=== PATIENT | male | born 1965 | race Caucasian/White ===

== ENCOUNTER 2017-01-30 00:20 | Inpatient (IN) | payer OTHER ==
[~2017-01-30] VITALS: Ht 185.4 cm; Wt 122.9 kg
[2017-01-30] VITALS (24 sets, daily range): BP systolic 74–173; BP diastolic 41–98
[2017-01-30] MEDS ORDERED: AMIODARONE 150 MG in IV DEXTROSE 5% 100 ML IV ONE (00:30)
[2017-01-30 00:39] LABS: BASO # 0.2 x10^3/uL (0.0-0.2); BASO % 1 % (0-3); EOS % 0 % (0-3); HEMATOCRIT 52.2 % (39.0-53.0); HEMOGLOBIN 16.3 g/dL (13.0-17.5); LYMPH # 3.9 x10^3/uL (1.0-4.8); LYMPH % 18 % (24-48); MEAN CORPUSCULAR HEMOGLOBIN 28 pg (25-35); MEAN CORPUSCULAR HGB CONC 31 g/dL (31-37); MEAN CORPUSCULAR VOLUME 91 fL (79-100); MONO % 8 % (0-9); NEUT % 72 % (31-73); PLATELET COUNT 243 x10^3/uL (140-400); RED BLOOD COUNT 5.75 x10^6/uL (4.30-5.70); WHITE BLOOD COUNT 21.2 x10^3/uL (4.0-11.0)
[2017-01-30 00:48] LABS: INR 1.1 (0.8-1.1); PROTHROMBIN TIME PATIENT 13.6 SEC (11.7-14.0)
--- NOTE | 2017-01-30 00:49 | PHYS DOC ---
Adult General Chief Complaint Chief Complaint: CHEST PAIN HPI HPI Patient is a 51 year old male who presents with complaining of his ICD firing. He states he is feeling shocks from his ICD firing every 5 minutes the last 2 hours. He states he's been noncompliant with all his medications. He does not remember what medications he takes. He is unsure when he had his ICD placed but states he is seen in [facility]. According to the [facility] he has a history of coronary disease he's had a PCI in 2016 he's on Berlinta and aspirin and has an EF of 20% with global hypokinesis. He also has past medical history of type 2 diabetes, peripheral artery disease, congestive heart failure. He states his been out of his meds for at least a week. He denies fevers chills, he does complain of some nausea but no vomiting. He denies a cough. Review of Systems Review of Systems Constitutional: Denies fever or chills [] Eyes: Denies change in visual acuity, redness, or eye pain [] HENT: Denies nasal congestion or sore throat [] Respiratory: Denies cough or shortness of breath [] Cardiovascular: No additional information not addressed in HPI [] GI: Denies abdominal pain, nausea, vomiting, bloody stools or diarrhea [] : Denies dysuria or hematuria [] Musculoskeletal: Denies back pain or joint pain [] Integument: Denies rash or skin lesions [] Neurologic: Denies headache, focal weakness or sensory changes [] Endocrine: Denies polyuria or polydipsia [] Current Medications Current Medications Current Medications Medications (Trade) Dose Ordered Sig/Landen Start Time Stop Time Status Last Admin Dose Admin Amiodarone HCl 150 mg/Dextrose 103 ml @ 400 mls/hr 1X ONCE 01/30/17 00:30 01/30/17 00:50 DC 01/30/17 00:27 400 MLS/HR Amiodarone HCl 900 mg/Dextrose 518 ml @ 0 mls/hr CONT PRN 01/30/17 02:30 01/30/17 02:30 DC 01/30/17 02:24 33.3 MLS/HR Dextrose/Sodium Chloride 1,000 ml @ 250 mls/hr Q4H 01/30/17 01:41 Insulin Human Regular 150 ml @ As Directed STK-MED ONCE 01/30/17 02:00 01/30/17 02:01 DC Insulin Human Regular 150 unit/ Sodium Chloride 151.5 ml @ 0 mls/hr CONT PRN PRN 01/30/17 01:45 01/30/17 02:08 14.5 MLS/HR Ondansetron HCl (Zofran) 4 mg PRN Q8HRS PRN 01/30/17 02:30 01/31/17 02:29 Potassium Chloride 100 ml @ 100 mls/hr PRN Q1HR PRN 01/30/17 01:45 Sodium Chloride 1,000 ml @ 250 mls/hr Q4H 01/30/17 01:41 Allergies Allergies Allergies Coded Allergies Type Severity Reaction Last Updated Verified No Known Drug Allergies 01/30/17 No Physical Exam Physical Exam Constitutional: Well developed, well nourished, no acute distress, non-toxic appearance. [] HENT: Normocephalic, atraumatic, bilateral external ears normal, oropharynx moist, no oral exudates, nose normal. [] Eyes: PERRLA, EOMI, conjunctiva normal, no discharge. [] Neck: Normal range of motion, no tenderness, supple, no stridor. [] Cardiovascular:Heart rate regular rhythm, no murmur [] Lungs & Thorax: Bilateral breath sounds clear to auscultation [] Abdomen: Bowel sounds normal, soft, no tenderness, no masses, no pulsatile masses. [] Skin: Warm, dry, no erythema, no rash. [] Back: No tenderness, no CVA tenderness. [] Extremities: No tenderness, no cyanosis, no clubbing, ROM intact, no edema. [] Neurologic: Alert and oriented X 3, normal motor function, normal sensory function, no focal deficits noted. [] Psychologic: Affect normal, judgement normal, mood normal. [] Current Patient Data Vital Signs Vital Signs Date Time Temp Pulse Resp B/P (MAP) Pulse Ox O2 Delivery O2 Flow Rate FiO2 01/30/17 00:27 133 159/81 01/30/17 00:20 96.8 22 93 Room Air 96.8 Lab Values Laboratory Tests Test 01/30/17 00:25 01/30/17 00:28 01/30/17 01:20 01/30/17 01:41 White Blood Count 21.2 x10^3/uL (4.0-11.0) H Red Blood Count 5.75 x10^6/uL (4.30-5.70) H Hemoglobin 16.3 g/dL (13.0-17.5) Hematocrit 52.2 % (39.0-53.0) Mean Corpuscular Volume 91 fL (79-100) Mean Corpuscular Hemoglobin 28 pg (25-35) Mean Corpuscular Hemoglobin Concent 31 g/dL (31-37) Red Cell Distribution Width 15.0 % (11.5-14.5) H Platelet Count 243 x10^3/uL (140-400) Neutrophils (%) (Auto) 72 % (31-73) Lymphocytes (%) (Auto) 18 % (24-48) L Monocytes (%) (Auto) 8 % (0-9) Eosinophils (%) (Auto) 0 % (0-3) Basophils (%) (Auto) 1 % (0-3) Neutrophils # (Auto) 15.3 x10^3uL (1.8-7.7) H Lymphocytes # (Auto) 3.9 x10^3/uL (1.0-4.8) Monocytes # (Auto) 1.7 x10^3/uL (0.0-1.1) H Eosinophils # (Auto) 0.1 x10^3/uL (0.0-0.7) Basophils # (Auto) 0.2 x10^3/uL (0.0-0.2) Segmented Neutrophils % 78 % (35-66) H Band Neutrophils % 2 % (0-9) Lymphocytes % 14 % (24-48) L Monocytes % 6 % (0-10) Platelet Estimate Adequate (ADEQUATE) Prothrombin Time 13.6 SEC (11.7-14.0) Prothrombin Time INR 1.1 (0.8-1.1) Sodium Level 126 mmol/L (136-145) L Potassium Level 4.0 mmol/L (3.5-5.1) Chloride Level 83 mmol/L (98-107) L Carbon Dioxide Level 12 mmol/L (21-32) L Anion Gap 31 (6-14) H Blood Urea Nitrogen 47 mg/dL (8-26) H Creatinine 2.6 mg/dL (0.7-1.3) H Estimated GFR (Cockcroft-Gault) 26.2 Glucose Level 781 mg/dL (70-99) *H Calcium Level 9.1 mg/dL (8.5-10.1) Magnesium Level 2.9 mg/dL (1.8-2.4) H Total Bilirubin 1.2 mg/dL (0.2-1.0) H Direct Bilirubin 0.3 mg/dL (0.0-0.2) H Aspartate Amino Transferase (AST) 21 U/L (15-37) Alanine Aminotransferase (ALT) 23 U/L (16-63) Alkaline Phosphatase 122 U/L (46-116) H Creatine Kinase 204 U/L (39-308) Creatine Kinase MB (Mass) 3.5 ng/mL (0.0-3.6) Creatine Kinase MB Relative Index 1.7 % (0-4) Troponin I Quantitative 1.097 ng/mL (0.000-0.055) VS-Ydl-J-Type Natriuretic Peptide 2863 pg/mL (0-124) H Total Protein 8.2 g/dL (6.4-8.2) Albumin 3.7 g/dL (3.4-5.0) Lipase 209 U/L (73-393) Thyroid Stimulating Hormone (TSH) 0.634 uIU/mL (0.358-3.74) Ethyl Alcohol Level < 10 mg/dL (0-10) Lactic Acid Level 7.3 mmol/L (0.4-2.0) *H Phosphorus Level 9.9 mg/dL (2.6-4.7) H Urine Collection Type Unknown Urine Color Yellow Urine Clarity Clear Urine pH 5.0 Urine Specific [place] >=1.030 Urine Protein Negative mg/dL (NEG-TRACE) Urine Glucose (UA) >=1000 mg/dL (NEG) Urine Ketones (Stick) 40 mg/dL (NEG) Urine Blood Trace (NEG) Urine Nitrite Negative (NEG) Urine Bilirubin Small (NEG) Urine Urobilinogen Dipstick 0.2 mg/dL (0.2 mg/dL) Urine Leukocyte Esterase Negative (NEG) Urine RBC Occ /HPF (0-2) Urine WBC Occ /HPF (0-4) Urine Squamous Epithelial Cells Few /LPF Urine Amorphous Sediment Present /HPF Urine Bacteria 0 /HPF (0-FEW) Urine Mucus Slight /LPF Urine Opiates Screen Pos (NEG) Urine Methadone Screen Neg (NEG) Urine Barbiturates Neg (NEG) Urine Phencyclidine Screen Neg (NEG) Urine Amphetamine/Methamphetamine Neg (NEG) Urine Benzodiazepines Screen Neg (NEG) Urine Cocaine Screen Neg (NEG) Urine Cannabinoids Screen Neg (NEG) Urine Ethyl Alcohol Neg (NEG) O2 Saturation 95 % (92-99) Arterial Blood pH 7.25 (7.35-7.45) L Arterial Blood pCO2 at Patient Temp 22 mmHg (35-46) L Arterial Blood pO2 at Patient Temp 87 mmHg (75-108) Arterial Blood HCO3 9 mmol/L (21-28) L Arterial Blood Base Excess -16 mmol/L (-3-3) L Oxyhemoglobin 93.7 % Methemoglobin 0.6 % (0.0-1.9) Carbon Monoxide, Quantitative 0.7 % (0.0-1.9) FiO2 28.0 Laboratory Tests 01/30/17 00:25 Laboratory Tests 01/30/17 00:25 EKG EKG EKG at 0023 shows wide complex tachycardia, and V6 shows a narrow complex, QTC 530 ms, as interpreted by me. Repeat EKG at 152 shows wide complex tachycardia at a rate of 124 bpm, QRS 190 ms, QTc 513 ms, as interpreted by me. Radiology/Procedures Radiology/Procedures One view chest x-ray did not show any focal salt elevations, bony abnormalities , or pneumothorax, ICD noted, as interpreted by me. Impressions: DKA Wide-complex tachycardia Congestive heart failure Elevated troponin Course & Med Decision Making Course & Med Decision Making Pertinent Labs and Imaging studies reviewed. (See chart for details) Patient arrived and had a hard time telling us his past medical history, surgical history and medication list. Rhythm on the monitor showed a wide complex tachycardia in the 150s. He was given 150 of amiodarone and his rate slowed down in the 120s. A liter fluid was also given. Labs showed DKA with an ABG showing pH is 7.2 PCO2 of 22 PO2 of 80 bicarbonate of 9. Insulin protocol has been implemented. I believe the patient is in DKA secondary to noncompliance with medication since he's been off his meds for according to patient about a week. Critical care time 75 minutes of critical care time was used on this patient excluding procedures. Dragon Disclaimer Dragon Disclaimer This electronic medical record was generated, in whole or in part, using a voice recognition dictation system. Departure Departure Disposition: ADMITTED INPATIENT Admitting Physician: Other Condition: CRITICAL Referrals: NO PCP (PCP) RACHEL SWANN MD Jan 30, 2017 00:49
[2017-01-30 00:57] LABS: ALBUMIN 3.7 g/dL (3.4-5.0); CALCIUM 9.1 mg/dL (8.5-10.1); CREATININE 2.6 mg/dL (0.7-1.3); DIRECT BILIRUBIN 0.3 mg/dL (0.0-0.2); GFR 26.2; MAGNESIUM 2.9 mg/dL (1.8-2.4); TOTAL BILIRUBIN 1.2 mg/dL (0.2-1.0); TOTAL PROTEIN 8.2 g/dL (6.4-8.2)
[2017-01-30 01:06] LABS: CKMB MASS 3.5 ng/mL (0.0-3.6)
[2017-01-30 01:29] LABS: BILIRUBIN,URINE SMALL (NEG); GLUCOSE,URINE >=1000 mg/dL (NEG); NITRITE,URINE NEGATIVE (NEG); PROTEIN,URINE NEGATIVE (NEG-TRACE); UROBILINOGEN,URINE 0.2 mg/dL (0.2 mg/dL)
[2017-01-30] MEDS ORDERED: IV NORMAL SALINE 1000ML BAG 1,000 ML IV ONE ×3 (01:30→04:30)
[2017-01-30 01:35] LABS: BARBITURATES NEG (NEG); BENZODIAZEPINES NEG (NEG); CANNABINOIDS NEG (NEG); COCAINE NEG (NEG); METHADONE NEG (NEG); OPIATES POS (NEG); PHENCYCLIDINE NEG (NEG)
[2017-01-30 01:38] LABS: BACTERIA,URINE 0 /HPF (0-FEW); RBC,URINE OCC /HPF (0-2); SQUAMOUS EPITHELIAL CELL,UR FEW /LPF; WBC,URINE OCC /HPF (0-4)
[2017-01-30] MEDS: IV NORMAL SALINE 1000ML BAG 1,000 ML IV SCH ×6 (01:38→13:41)
[2017-01-30] MEDS ORDERED: IV 1/2 NORMAL SALINE 1,000 ML IV SCH (01:39)
[2017-01-30] MEDS: IV 1/2 NORMAL SALINE 1,000 ML IV SCH ×4 (01:41→13:41)
[2017-01-30] MEDS: IV DEXTROSE 5 %-0.45 % NACL 1,000 ML IV SCH ×4 (01:41→13:41)
[2017-01-30] MEDS ORDERED: POTASSIUM CHLORIDE 10MEQ 100 ML IV PRN ×2 (01:45)
[2017-01-30] MEDS ORDERED: INSULIN REGULAR VIAL 150 UNIT in 0.9 % SODIUM CHLORIDE 150ML 150 ML IV PRN (01:45)
[2017-01-30 01:50] LABS: PLT ESTIMATE ADEQUATE (ADEQUATE)
[2017-01-30 01:58] LABS: BASE EXCESS COOX -16 mmol/L (-3-3); CARBON MONOXIDE 0.7 % (0.0-1.9); HCO3 COOX 9 mmol/L (21-28); METHEMOGLOBIN 0.6 % (0.0-1.9); OXYHEMOGLOBIN 93.7 %; PCO2 COOX 22 mmHg (35-46); PH COOX 7.25 (7.35-7.45); PO2 COOX 87 mmHg (75-108); SAT O2 COOX 95 % (92-99)
[2017-01-30] MEDS ORDERED: INSULIN,REGULAR 150 UNIT DRIP 150 ML IV ONE (02:00)
[2017-01-30] MEDS ORDERED: AMIODARONE 900 MG in IV DEXTROSE 5% 500 ML IV PRN (02:30)
[2017-01-30] MEDS ORDERED: ONDANSETRON PF 4 MG/2 ML VIAL. IV PRN (02:30)
[2017-01-30] MEDS ORDERED: METOPROLOL TARTRATE 5 MG/5 ML VIAL. ONE (03:23)
[2017-01-30 03:53] LABS: CKMB MASS 4.5 ng/mL (0.0-3.6)
[2017-01-30] MEDS ORDERED: METOPROLOL TARTRATE 5 MG/5 ML VIAL. IVP ONE ×2 (04:00→17:45)
--- NOTE | 2017-01-30 04:14 | RAD ---
PQRS Compliance Statement: One or more of the following individualized dose reduction techniques were utilized for this examination: 1. Automated exposure control 2. Adjustment of the mA and/or kV according to patient size 3. Use of iterative reconstruction technique CT HEAD WITHOUT CONTRAST History: ams Comparison: None. Procedure: Axial images are obtained of the head from the skull base through the vertex without IV contrast. Findings: The ventricles and sulci are normal for the patient's age. There is bilateral frontal lobe encephalomalacia. No mass-effect, midline shift, hemorrhage, extra-axial fluid collection, or obvious acute infarction is identified. Basilar cisterns are patent. Bone windows demonstrate no acute calvarial abnormality. The visualized paranasal sinuses are clear. Mastoid air cells are well aerated. IMPRESSION: 1. No acute intracranial abnormality. 2. Bilateral frontal lobe encephalomalacia. Electronically signed by: Tino Astudillo MD (01/30/2017 4:10 AM) [facility]
[2017-01-30] MEDS ORDERED: IV NORMAL SALINE 500ML BAG 400 ML IV ONE (05:30)
--- NOTE | 2017-01-30 06:43 | EKG ---
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
--- NOTE | 2017-01-30 06:43 | EKG ---
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
[2017-01-30 06:52] LABS: CALCIUM 8.8 mg/dL (8.5-10.1); CREATININE 1.9 mg/dL (0.7-1.3); GFR 37.6; POTASSIUM 4.1 mmol/L (3.5-5.1)
--- NOTE | 2017-01-30 06:54 | EKG ---
[facility] [address] [place] [address] Test Date: 2017-01-30 Test Time: 03:22:25 Pat Name: GEETA ANGLIN Department: Room: 110 1 Gender: M Circus Agent: : 1965 Requested By: RACHEL SWANN Order Number: [id number] Reading MD: Elvin Baez Measurements Intervals [place] Rate: 176 P: [place]: QRS: 54 QRSD: 318 T: 64 QT: 376 QTc: 648 Interpretive Statements ATRIAL FIBRILLATION WITH ABERRANCY CANNOT RULE OUT VT Electronically Signed On 02-03-2017 9:46:40 CDT by Elvin Baez
[2017-01-30 06:55] LABS: HEMATOCRIT 51.6 % (39.0-53.0); HEMOGLOBIN 16.4 g/dL (13.0-17.5); RED BLOOD COUNT 5.91 x10^6/uL (4.30-5.70); RED CELL DISTRIBUTION WIDTH 14.4 % (11.5-14.5); WHITE BLOOD COUNT 16.6 x10^3/uL (4.0-11.0)
[2017-01-30 07:19] LABS: MAGNESIUM 2.7 mg/dL (1.8-2.4); PHOSPHORUS 3.7 mg/dL (2.6-4.7)
--- NOTE | 2017-01-30 07:35 | RAD ---
Exam performed: One view chest. Indication: chest pain Date of Service: 01/30/2017 2:27 AM Comparison: None available. Single AP upright portable view chest findings: Cardiomediastinal silhouette is within limits of normal. Bipolar pacemaker. No acute infiltrates, effusion or pneumothorax is detected. The bony structures are normal. Impression: No acute cardiopulmonary process is detected.
[2017-01-30] MEDS: POTASSIUM CHLORIDE 10MEQ 100 ML IV PRN ×2 (09:39→10:48)
--- NOTE | 2017-01-30 09:54 | PDOC2 ---
MAXIME PHILLIPS SHINGLE GRADER 01/30/17 0954: CARDIAC CONSULT DATE OF CONSULT Date of Consult DATE: 01/30/17 TIME: 09:46 REASON FOR CONSULT Reason for Consult: Elevated troponin REFERRING PHYSICIAN Referring Physician: Dr. Gomez SOURCE Source: Chart review, Patient HISTORY OF PRESENT ILLNESS HISTORY OF PRESENT ILLNESS This is a 51 yo male with a h/o ICM s/p AICD placement, who presented secondary to defibrillator discharging. Is a poor historian. Reports getting shocked a dozen times in the last couple of day along with getting shock in the middle of the night on the unit. Per chart review, patient reports ICD firing every 5 mins for the last couple of hours. Amiodarone therapy initiated in ED. Has apparently been noncompliant with his medications. On insulin at home. BS >700 upon admission. Reports his glucometer has not been working properly. Denies any chest pain, palpitations, dizziness, diaphoresis, or nausea/vomiting. Does have a history CAD s/p PCI/stent placement at [facility] (patient reporting a year ago). Reports compliance of at least 3 months of DAPT with ASA and Brilinta. AICD placed recently. LVEF reportedly 20%. PAST MEDICAL HISTORY Cardiovascular: CAD, CHF (with ICM), HTN, Other (PAD s/p bilateral fem pop) Pulmonary: No pertinent hx Heme/Onc: No pertinent hx Hepatobiliary: No pertinent hx Psych: Anxiety, Depression Rheumatologic: No pertinent hx Infectious disease: No pertinent hx ENT: No pertinent hx Renal/: No pertinent hx Endocrine: Diabetes Dermatology: No pertinent hx PAST SURGICAL HISTORY Past Surgical History: Pacemaker (AICD) FAMILY HISTORY Family History: Diabetes SOCIAL HISTORY Smoke: No ALCOHOL: none Drugs: None Lives: Alone CURRENT MEDICATIONS CURRENT MEDICATIONS Current Medications Medications (Trade) Dose Ordered Sig/Landen Route PRN Reason Start Time Stop Time Status Last Admin Dose Admin Amiodarone HCl 150 mg/Dextrose 103 ml @ 400 mls/hr 1X ONCE IV 01/30/17 00:30 01/30/17 00:50 DC 01/30/17 00:27 Sodium Chloride 1,000 ml @ 1,000 mls/hr 1X ONCE IV 01/30/17 01:30 01/30/17 02:29 DC 01/30/17 01:24 Sodium Chloride 1,000 ml @ 250 mls/hr Q4H IV 01/30/17 01:41 01/30/17 06:25 Insulin Human Regular 150 unit/ Sodium Chloride 151.5 ml @ 0 mls/hr CONT PRN PRN IV PER PROTOCOL 01/30/17 01:45 01/30/17 02:08 Potassium Chloride 100 ml @ 100 mls/hr PRN Q1HR PRN IV SEE COMMENTS 01/30/17 01:45 01/30/17 09:39 Amiodarone HCl 900 mg/Dextrose 518 ml @ 0 mls/hr CONT PRN IV SEE I/O RECORD 01/30/17 02:30 01/30/17 02:30 DC 01/30/17 02:24 Metoprolol Tartrate (Lopressor) 5 mg 1X ONCE IVP 01/30/17 04:00 01/30/17 04:01 DC 01/30/17 03:25 Sodium Chloride 1,000 ml @ 1,000 mls/hr 1X ONCE IV 01/30/17 04:30 01/30/17 05:29 DC 01/30/17 03:35 Sodium Chloride 1,000 ml @ 1,000 mls/hr 1X ONCE IV 01/30/17 04:30 01/30/17 05:29 DC 01/30/17 03:40 Sodium Chloride 400 ml @ 400 mls/hr 1X ONCE IV 01/30/17 05:30 01/30/17 06:29 DC 01/30/17 05:45 ALLERGIES ALLERGIES: Coded Allergies: No Known Drug Allergies (Unverified , 01/30/17) ROS Review of System 14 point ROS conducted with pertinent positives noted above in HPI although limited as patient is a poor historian. PHYSICAL EXAM General: Alert, Cooperative, No acute distress, Other (drowsy, oriented to person and place) HEENT: Atraumatic, Mucous membr. moist/pink Lungs: Clear to auscultation, Normal air movement, Other (left pectoral PPM incision well healed) Heart: Regular rate, Normal S1, Normal S2 Abdomen: Soft, No tenderness Extremities: Other (diminished pedal pulses ) Skin: No breakdown, No significant lesion Neuro: Sensation intact MUSCULOSKELETAL: Osteoarthritic changes both hands VITALS VITALS Vital Signs Date Time Temp Pulse Resp B/P (MAP) Pulse Ox O2 Delivery O2 Flow Rate FiO2 01/30/17 06:00 104 18 138/87 (104) 100 Nasal Cannula 2.0 01/30/17 04:15 98.3 98.3 LABS Lab: Laboratory Tests Test 01/30/17 00:25 01/30/17 00:28 01/30/17 01:20 01/30/17 01:41 White Blood Count 21.2 x10^3/uL (4.0-11.0) Red Blood Count 5.75 x10^6/uL (4.30-5.70) Hemoglobin 16.3 g/dL (13.0-17.5) Hematocrit 52.2 % (39.0-53.0) Mean Corpuscular Volume 91 fL (79-100) Mean Corpuscular Hemoglobin 28 pg (25-35) Mean Corpuscular Hemoglobin Concent 31 g/dL (31-37) Red Cell Distribution Width 15.0 % (11.5-14.5) Platelet Count 243 x10^3/uL (140-400) Neutrophils (%) (Auto) 72 % (31-73) Lymphocytes (%) (Auto) 18 % (24-48) Monocytes (%) (Auto) 8 % (0-9) Eosinophils (%) (Auto) 0 % (0-3) Basophils (%) (Auto) 1 % (0-3) Neutrophils # (Auto) 15.3 x10^3uL (1.8-7.7) Lymphocytes # (Auto) 3.9 x10^3/uL (1.0-4.8) Monocytes # (Auto) 1.7 x10^3/uL (0.0-1.1) Eosinophils # (Auto) 0.1 x10^3/uL (0.0-0.7) Basophils # (Auto) 0.2 x10^3/uL (0.0-0.2) Segmented Neutrophils % 78 % (35-66) Band Neutrophils % 2 % (0-9) Lymphocytes % 14 % (24-48) Monocytes % 6 % (0-10) Platelet Estimate Adequate (ADEQUATE) Prothrombin Time 13.6 SEC (11.7-14.0) Prothromb Time International Ratio 1.1 (0.8-1.1) Sodium Level 126 mmol/L (136-145) Potassium Level 4.0 mmol/L (3.5-5.1) Chloride Level 83 mmol/L (98-107) Carbon Dioxide Level 12 mmol/L (21-32) Anion Gap 31 (6-14) Blood Urea Nitrogen 47 mg/dL (8-26) Creatinine 2.6 mg/dL (0.7-1.3) Estimated GFR (Cockcroft-Gault) 26.2 Glucose Level 781 mg/dL (70-99) Calcium Level 9.1 mg/dL (8.5-10.1) Magnesium Level 2.9 mg/dL (1.8-2.4) Total Bilirubin 1.2 mg/dL (0.2-1.0) Direct Bilirubin 0.3 mg/dL (0.0-0.2) Aspartate Amino Transf (AST/SGOT) 21 U/L (15-37) Alanine Aminotransferase (ALT/SGPT) 23 U/L (16-63) Alkaline Phosphatase 122 U/L (46-116) Creatine Kinase 204 U/L (39-308) Creatine Kinase MB (Mass) 3.5 ng/mL (0.0-3.6) Creatine Kinase MB Relative Index 1.7 % (0-4) Troponin I Quantitative 1.097 ng/mL (0.000-0.055) CJ-Vtn-K-Type Natriuretic Peptide 2863 pg/mL (0-124) Total Protein 8.2 g/dL (6.4-8.2) Albumin 3.7 g/dL (3.4-5.0) Lipase 209 U/L (73-393) Thyroid Stimulating Hormone (TSH) 0.634 uIU/mL (0.358-3.74) Ethyl Alcohol Level < 10 mg/dL (0-10) Lactic Acid Level 7.3 mmol/L (0.4-2.0) Phosphorus Level 9.9 mg/dL (2.6-4.7) Urine Collection Type Unknown Urine Color Yellow Urine Clarity Clear Urine pH 5.0 Urine Specific [place] >=1.030 Urine Protein Negative mg/dL (NEG-TRACE) Urine Glucose (UA) >=1000 mg/dL (NEG) Urine Ketones (Stick) 40 mg/dL (NEG) Urine Blood Trace (NEG) Urine Nitrite Negative (NEG) Urine Bilirubin Small (NEG) Urine Urobilinogen Dipstick 0.2 mg/dL (0.2 mg/dL) Urine Leukocyte Esterase Negative (NEG) Urine RBC Occ /HPF (0-2) Urine WBC Occ /HPF (0-4) Urine Squamous Epithelial Cells Few /LPF Urine Amorphous Sediment Present /HPF Urine Bacteria 0 /HPF (0-FEW) Urine Mucus Slight /LPF Urine Opiates Screen Pos (NEG) Urine Methadone Screen Neg (NEG) Urine Barbiturates Neg (NEG) Urine Phencyclidine Screen Neg (NEG) Urine Amphetamine/Methamphetamine Neg (NEG) Urine Benzodiazepines Screen Neg (NEG) Urine Cocaine Screen Neg (NEG) Urine Cannabinoids Screen Neg (NEG) Urine Ethyl Alcohol Neg (NEG) O2 Saturation 95 % (92-99) Arterial Blood pH 7.25 (7.35-7.45) Arterial Blood pCO2 at Patient Temp 22 mmHg (35-46) Arterial Blood pO2 at Patient Temp 87 mmHg (75-108) Arterial Blood HCO3 9 mmol/L (21-28) Arterial Blood Base Excess -16 mmol/L (-3-3) Oxyhemoglobin 93.7 % Methemoglobin 0.6 % (0.0-1.9) Carbon Monoxide, Quantitative 0.7 % (0.0-1.9) FiO2 28.0 Test 01/30/17 03:10 01/30/17 05:00 01/30/17 05:23 01/30/17 06:23 Glucose Level 547 mg/dL (70-99) Lactic Acid Level 2.5 mmol/L (0.4-2.0) 2.9 mmol/L (0.4-2.0) Creatine Kinase 275 U/L (39-308) Creatine Kinase MB (Mass) 4.5 ng/mL (0.0-3.6) Creatine Kinase MB Relative Index 1.6 % (0-4) Troponin I Quantitative 0.896 ng/mL (0.000-0.055) Glucose (Fingerstick) 351 mg/dL (70-99) 313 mg/dL (70-99) Test 01/30/17 06:30 White Blood Count 16.6 x10^3/uL (4.0-11.0) Red Blood Count 5.91 x10^6/uL (4.30-5.70) Hemoglobin 16.4 g/dL (13.0-17.5) Hematocrit 51.6 % (39.0-53.0) Mean Corpuscular Volume 87 fL (79-100) Mean Corpuscular Hemoglobin 28 pg (25-35) Mean Corpuscular Hemoglobin Concent 32 g/dL (31-37) Red Cell Distribution Width 14.4 % (11.5-14.5) Platelet Count 188 x10^3/uL (140-400) Sodium Level 133 mmol/L (136-145) Potassium Level 4.1 mmol/L (3.5-5.1) Chloride Level 96 mmol/L (98-107) Carbon Dioxide Level 15 mmol/L (21-32) Anion Gap 22 (6-14) Blood Urea Nitrogen 44 mg/dL (8-26) Creatinine 1.9 mg/dL (0.7-1.3) Estimated GFR (Cockcroft-Gault) 37.6 Glucose Level 285 mg/dL (70-99) Calcium Level 8.8 mg/dL (8.5-10.1) Phosphorus Level 3.7 mg/dL (2.6-4.7) Magnesium Level 2.7 mg/dL (1.8-2.4) Troponin I Quantitative 0.919 ng/mL (0.000-0.055) ASSESSMENT/PLAN ASSESSMENT/PLAN 1. NSTEMI; peak 1.097 in the setting of ARF, DKA, and VT/multiple defibrillations 2. Ventricular tachycardia; with numerous AICD discharges; Amiodarone gtt initiated; maintaining SR/ST 3. Chronic systolic heart failure with ICM s/p ICD; LVEF reportedly 20%. Compensated. 4. CAD s/p PCI/stents. Resume secondary prevention measures including DAPT. 5. Hypertension; controlled. Will need to obtain home med list 6. Diabetes with DKA, POA. BS controlled with insulin gtt. 7. ARF; Cr trending downward. 8. Leukocytosis/ lactic acidosis/ afebrile; empiric antibiotic therapy initiated. ID consulted. 9. Metabolic encephalopathy 10. Noncompliance Recommendations Continue Amiodarone gtt for rhythm maintenance/ VT prophylaxis. Obtain cardiac records from [facility] Supportive care; continued treatment of extra-cardiac conditions Problems: CRISTIAN LOPEZ MD 01/30/17 1510: CARDIAC CONSULT ALLERGIES ALLERGIES: Coded Allergies: No Known Drug Allergies (Unverified , 01/30/17) ASSESSMENT/PLAN ASSESSMENT/PLAN Patient seen and examined. Agree with NURSING SERVICE DIRECTOR's assessment and plan. Patient with history of coronary artery disease and ischemic cardiomyopathy s/p AICD implantation has been admitted with repeated shock therapies by his device. Continue amiodarone per protocol for rhythm maintenance. We will have his device interrogated and obtain records from [facility]. Troponin level slightly elevated most probably secondary to repeated shock therapies. We will review his last cardiac catheterization and make further recommendations. Chronic systolic heart failure clinically well compensated. Continue current treatment of DKA per IM. Thank you for your consultation. Problems: MAXIME PHILLIPS APRN Jan 30, 2017 09:54 CRISTIAN LOPEZ MD Jan 30, 2017 15:10
[2017-01-30] MEDS: IV DEXTROSE 5% - 0.9 % NACL 1,000 ML IV SCH ×3 (10:49→17:15)
--- NOTE | 2017-01-30 12:39 | HP ---
ADMIT DATE: 01/30/2017 CHIEF COMPLAINT: AICD firing, DKA. HISTORY OF PRESENT ILLNESS: Mr. Rodriguez is a 51-year-old gentleman with known history of arrhythmia, diabetes mellitus, CHF, who presented to the Emergency Room with noting his AICD firing multiple times over the previous 2 days. He states that initially he did not know what it was, as he had never experienced it in the past. He felt that his diaphragm was cramping and he was nauseous with the episodes. As these did not stop, he decided to present to the Emergency Room. Of note, he had been eating and drinking well over the past 3 days. Denies any shortness of breath. He broke his insulin injector 2 weeks ago, right after seeing his primary care physician and had not bothered getting a replacement. In the Emergency Room, he was found with blood sugars greater than 700 as well as V-tach on EKG. He was therefore started on amiodarone drip and admitted to the ICU and started on insulin IV as well. PAST MEDICAL HISTORY: Cardiomyopathy, status post AICD placement a few months ago at . LVEF reportedly 20%. Diabetes mellitus, hypertension, peripheral artery disease with bilateral fem-pop bypass years ago. FAMILY HISTORY: Diabetes. SOCIAL HISTORY: Lives by himself. No toxic habits, never smoked. ALLERGIES: No known allergies. MEDICATIONS: MAR reconciled with home medications. REVIEW OF SYSTEMS: Difficult to elicit as the patient is perseverating and has word finding difficulties. He denies any shortness of breath or chest pain at this point. He relates that he had his AICD firing here in the ICU as well. Denies any nausea, vomiting, abdominal pain, any symptoms in rest of organ system review. PHYSICAL EXAMINATION: VITAL SIGNS: From today show a blood pressure of 138/87, heart rate at 104, respiratory rate at 18. He is afebrile. GENERAL: This is an obese 51-year-old gentleman, lethargic, following commands and he is oriented. NEUROLOGIC: He has perseveration and word finding difficulties, memory is mildly impaired. HEENT: Shows no scleral icterus. Oral mucosa is dry. NECK: Supple, without any lymphadenopathy. LUNGS: Clear anteriorly. CARDIOVASCULAR: Heart is tachycardic without any appreciated murmur. ABDOMEN: Obese, positive bowel sounds. Organs could not be palpated. EXTREMITIES: Show no edema, bilateral fem-pop scars. SKIN: Warm, soft and dry without any rash. LABORATORY DATA: CBC with a WBC of 16.6, improved from 21 at admit. Hemoglobin 16.4, platelets at 188. Chemistries with a BUN and creatinine of 44 and 1.9. Sodium at 133, potassium 4.1. Admission BUN and creatinine has been 47 and 2.6, sodium 126. Total bili initially 1.2. Troponin max at 1.097. ProBNP at 2863. Lactate initially 7.3, repeat currently 2.9. Glucose was initially 781. Urine positive only for glucose and ketones. Tox screen positive for opiates. IMAGING STUDIES: CT of the head shows no acute intracranial abnormality, bilateral frontal lobe encephalomalacia. Chest x-ray, no cardiopulmonary process detected. ASSESSMENT AND PLAN: Mr. Rodriguez is a 51-year-old gentleman with cardiomyopathy, status post automatic implantable cardioverter defibrillator placement at , where he typically gets his care. Now presents with automatic implantable cardioverter defibrillator going off multiple times. He is also found with severe diabetic ketoacidosis, acute kidney injury and mental status changes here. He is now admitted to the ICU on amiodarone drip as well as insulin drip. His diabetes is coming under control, although insulin for IV is going to be continued for the time being. We will adjust until his gap is closed and switch to Levemir dosing. He is unfortunately unable to relate how much he is typically taking at home. For his ventricular tachycardia, cardiology has been consulted. Greatly appreciate input. We will have to obtain his home medications, which he is unable to relate to us at this at this time. For his acute kidney injury, which I suspect is due to dehydration and potential congestive heart failure, he is receiving fluids. We will follow labs closely. Sodium is already improving. The patient also has significant lactic acidosis at admit and is now continuing. He is nonfocal as far as infections are concerned; has no fevers, however, his white count is elevated. Blood cultures have been obtained. We will start him empirically on broad spectrum antibiotics. ID will be involved. XANDER VEGA MD DR: ALBER/[facility] JOB#: [id number] / [id number] MTDD
[2017-01-30] MEDS: CALCIUM CARBONATE 500 MG TAB.CHEW PO PRN (13:22)
[2017-01-30] MEDS: PANTOPRAZOLE 40 MG TABLET.DR. PO SCH (13:22)
[2017-01-30 13:33] LABS: CALCIUM 8.3 mg/dL (8.5-10.1); CREATININE 1.4 mg/dL (0.7-1.3); GFR 53.4
[2017-01-30 13:34] LABS: POTASSIUM 5.3 mmol/L (3.5-5.1)
[2017-01-30 13:39] LABS: MAGNESIUM 2.6 mg/dL (1.8-2.4)
[2017-01-30] MEDS ORDERED: INSULIN DETEMIR 300 UNITS/3 ML INSULN.PEN. SQ ONE (14:00)
[2017-01-30 15:56] LABS: CALCIUM 8.1 mg/dL (8.5-10.1); CREATININE 1.4 mg/dL (0.7-1.3); GFR 53.4; POTASSIUM 3.7 mmol/L (3.5-5.1)
[2017-01-30 16:00] LABS: MAGNESIUM 2.2 mg/dL (1.8-2.4); PHOSPHORUS 2.1 mg/dL (2.6-4.7)
[2017-01-30] MEDS ORDERED: LIDOCAINE 2% 100 MG/5 ML SYRINGE. ONE (16:41)
[2017-01-30] MEDS ORDERED: ADENOSINE 6 MG/2 ML VIAL. IV ONE (16:46)
--- NOTE | 2017-01-30 16:56 | EKG ---
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
[2017-01-30] MEDS ORDERED: HEPARIN for IV BOLUS 10,000 UNIT/10 ML VIAL. IV PRN (17:00)
[2017-01-30] MEDS ORDERED: HEPARIN 25,000UTS/500ML PREMIX 500 ML IV PRN (17:00)
[2017-01-30] MEDS ORDERED: DIGOXIN IV 500 MCG/2 ML AMPUL. IV ONE (17:00)
[2017-01-30] MEDS ORDERED: DEXTROSE 50% 25 GM / 50ML DISP.SYRIN. IV PRN (17:45)
[2017-01-30] MEDS ORDERED: METOPROLOL TART IMMED RELEASE 50 MG TABLET. PO SCH (18:00)
[2017-01-30] MEDS: MORPHINE SULFATE 2 MG/ML DISP.SYRIN. IV PRN ×2 (18:02→21:17)
[2017-01-30] MEDS: INSULIN ASPART 300 UNITS/3 ML INSULN.PEN SQ SCH (19:05)
[2017-01-30] MEDS ORDERED: AMIODARONE 450 MG in IV DEXTROSE 5% 250 ML IV PRN (22:15)
[2017-01-31] VITALS (14 sets, daily range): BP systolic 92–189; BP diastolic 59–94
[2017-01-31] MEDS: CALCIUM CARBONATE 500 MG TAB.CHEW PO PRN (00:19)
[2017-01-31] MEDS: MORPHINE SULFATE 2 MG/ML DISP.SYRIN. IV PRN ×3 (00:19→08:48)
--- NOTE | 2017-01-31 04:58 | ACF ---
Admission Forms Criteria GENERAL ADMISSION CRITERIA (Place 'X' for any and all applicable criteria): Admission is indicated for ANY ONE of the following: [ ]I. Hemodynamic instability as indicated by ANY ONE of the following(1)(2) (3)(4)(5): [ ]a) Vital sign abnormality not readily corrected by appropriate treatment within 12 to 24 hours indicated by ANY ONE of the following: [ ]i) Hypotension [ ]ii) Symptomatic Tachycardia unresponsive to treatment (eg , analgesia, fluids, sedation as indicated) [ ]iii) Orthostatic vital sign changes unresponsive to treatment (eg, fluids) [ ]b) Vital sign abnormality that is severe indicated by ANY ONE of the following: [ ]i) Inadequate perfusion indicated by ANY ONE of the following: [ ]1) Lactic acidosis (greater than 2 mmol/L) [ ]2) New abnormal capillary refill (greater than 3 seconds) [ ]3) Other metabolic acidosis (arterial pH less than 7.35) not otherwise explained [ ]4) Reduced urine output [ ]5) Altered mental status [ ]6) Myocardial Ischemia [ ]v) Mean arterial pressure[A] less than 60 mm Hg [ ]vi) Mean arterial pressure[A] less than 70 mm Hg after 30 minutes of appropriate treatment (eg, fluid resuscitation) [ ]vii) IV inotropic or vasopressor medication required to maintain adequate blood pressure or perfusion [ ]viii) Sustained heart rate greater than 120 beats per minute in adult or child 6 years or older[B]] [ ]II. Hypertension requiring inpatient treatment as indicated by ANY ONE of the following(6)(7)(8): [ ]a) SBP greater than 220 mm Hg or DBP greater than 120 mm Hg despite treatment [ ]b) SBP greater than 140 mm Hg or DBP greater than 100 mm Hg with evidence of acute end organ damage as indicated by ANY ONE of the following: [ ]i) Encephalopathy [ ]ii) Acute renal failure as indicated by new onset of ANY ONE of the following(9)(10)(11)(12)(13): [ ]1) A 3-fold rise in serum creatinine from baseline [ ]2) Serum creatinine greater than 4 mg/dL ( 354 micromoles/L) with acute rise greater than 0.5 mg/dL (44.2 micromoles/L) [ ]3) Reduction of more than 75% in estimated glomerular filtration rate from baseline [ ]4) Estimated glomerular filtration rate less than 35 mL/min/1.73m2 (0.59 mL/sec/1.73m2) in child up to 18 years of age [ ]5) Cessation of urine output indicated by ALL of the following: [ ]A. Adequate volume status [ ]B. Inadequate urine output as indicated by ANY ONE of the following: [ ]a. Urine output less than 0.3 mL/kg/hr for 24 hours [ ]b. Anuria (urine output less than 0.1 mL/kg/hr) for 12 hours [ ]iii) Aortic dissection [ ]iv) Myocardial ischemia [ ]v) Left ventricular heart failure [ ]vi) Retinal hemorrhage [ ]vii) Other significant finding [ ]c) Hypertension in child requiring inpatient treatment as indicated by ALL of the following(14)(15)(16): [ ]i) Outpatient treatment not effective, not available, or not appropriate [ ]ii) SBP or DBP greater than 95th percentile for age [ ]iii) Evidence of acute end organ damage as indicated by ANY ONE of the following: [ ]1) Altered mental status [ ]2) Acute renal failure as indicated by new onset of ANY ONE of the following(9)(10)(11)(12)(13): [ ]A. A 3-fold rise in serum creatinine from baseline [ ]B. Serum creatinine greater than 4 mg/dL (354 micromoles/L) with acute rise greater than 0.5 mg/dL (44.2 micromoles/L) [ ]C. Reduction of more than 75% in estimated glomerular filtration rate from baseline [ ]D. Estimated glomerular filtration rate less than 35 mL/min/1.73m2 (0.59 mL/sec/1.73m2)in child up to 18 years of age [ ]E. Cessation of urine output indicated by ALL of the following: [ ]a. Adequate volume status [ ]b. Inadequate urine output as indicated by ANY ONE of the following: [ ]1) Urine output less than 0.3 mL/kg/hr for 24 hours [ ]2) Anuria (urine output less than 0.1 mL/kg/hr) for 12 hours [ ]3) Severe headache [ ]4) Visual disturbance [ ]5) Retinal hemorrhage [ ]6) Other significant finding [ ]III. Acute cardiac or peripheral ischemia as indicated by ANY ONE of the following: [ ]a) Acute coronary syndrome(17)(18) [ ]b) Acute peripheral ischemia (eg, pulseless, cool, mottled, or cyanotic extremity)(19) [ ]IV. Cardiac arrhythmias or findings of immediate concern indicated by ANY ONE of the following(20)(21): [ ]a) Heart rhythms that are inherently dangerous or unstable indicated by ANY ONE of the following(22)(23)(24): [ ]i) Resuscitated ventricular fibrillation or cardiac arrest [ ]ii) Ventricular escape rhythm [ ]iii) Sustained ventricular tachycardia (30 seconds or more of ventricular rhythm at greater than 100 beats per minute) [ ]iv) Nonsustained ventricular tachycardia and ANY ONE of the following: [ ]1) Suspected cardiac ischemia as cause or consequence of ventricular tachycardia [ ]2) In setting of acute myocarditis [ ]b) Unstable cardiac conduction defects indicated by ANY ONE of the following(24)(25)(26): [ ]i) Type II second-degree atrioventricular block [ ]ii) Third-degree atrioventricular block [ ]iii) New-onset left bundle branch block with suspected myocardial ischemia [ ]c) Any heart rhythm and ANY ONE of the following(22)(23)(27)(28)( 29): [ ] i) Continuous long-term ECG monitoring needed (eg, initiation of drug requiring monitoring for more than 24 hours) [ ] ii) Patient has automatic implanted cardioverter defibrillator that is repeatedly firing, malfunctioning, or in need of immediate adjustment of settings beyond the scope of ambulatory or observation care. [ ]d) Heart rhythms of concern due to ANY ONE of the following: [ ]i) Hypotension [ ]ii) Respiratory distress [ ]iii) Association with other significant symptoms (eg, bradycardia with syncope or ongoing dizziness, supraventricular tachycardia with chest pain) (27)(28) (30) [ ] V. Severe heart failure as indicated by ANY ONE of the following ( 31)(32): [ ]a) Respiratory distress [ ]b) Hypotension [ ]c) Anasarca (refractory to outpatient therapy) [ ]d) Cardiac arrhythmias of immediate concern [ ]e) Myocardial ischemia [ ]. Respiratory abnormalities, including ANY ONE of the following(33)(34) (35)(36): [ ]a) Respiratory rate greater than 30 breaths per minute unresponsive to treatment [A] [ ]b) New saturation of arterial oxygen less than 90% [ ]c) New partial pressure of carbon dioxide greater than 44 mm Hg ( 5.9 kPa) [ ]d) Supplemental oxygen or respiratory treatments needed that are new or not performable at other levels of care [ ]e) New-onset cyanosis [ ]f) Inability to protect airway [ ]g) Chronic lung disease with severe deterioration (not responsive to emergency and observation care treatment as appropriate) as indicated by ANY ONE of the following(34)(36 ): [ ]i) SaO2 5% below baseline in patient with chronic hypoxemia [ ]ii) New requirement for supplemental oxygen to keep SaO2 at baseline or acceptable level [ ]iii) Required supplemental oxygen performable only in acute inpatient setting [ ]iv) Severe airflow or ventilation abnormalities [ ]v) Previously mobile patient unable to walk between rooms [ ]vi Inability to eat or sleep due to dyspnea [ ]vii) Rapid rate of exacerbation onset [ ]viii) Altered mental status ]VII. Severe airflow or ventilation abnormalities (not responsive to emergency and observation care treatment as appropriate) as indicated by ANY ONE of the following(33)(34)(35)(37): [ ]a) PCO2 greater than 42 mm Hg (5.6 kPa) and pH less than 7.35 (new ) [ ]b) Documented PCO2 increased more than 5 mm Hg (0.7 kPa) from disease baseline [ ]c) Airflow measurements [B] less than 60% of previous best or predicted (eg, peak expiratory flow rate less than 300 L/minute) despite intensive emergent treatment [C] [ ]d) Required respiratory treatments that are performable only in acute inpatient setting [ ]VIII. Impending or actual respiratory arrest ( Also use Respiratory Failure GRG for severe respiratory disease and long-term mechanical ventilation patients) [ ]IX. Neurologic abnormalities, including ANY ONE of the following: [ ]a) New findings that suggest ANY ONE of the following: [ ]i) [employer] infection(38) [ ]ii) Cerebral bleeding, ischemia, or vasospasm(39)(40) [ ]iii) Increased intracranial pressure, hydrocephalus, or cerebral edema(41)(42)(43) [ ]iv) Spinal cord injury(44) [ ]b) Uncontrolled seizures(45) [ ]c) New-onset coma (eg, Rian coma scale score less than 9) or unexplained abnormal mental status (eg, Rian coma scale score less than 14) [D](41)(46)(47) [ ]X. New-onset severe neurologic findings requiring inpatient care; examples include(42)(48)(49): [ ]a) Papilledema [ ]b) Cerebral edema [ ]c) Mass effect on CT scan [ ]XI. Suspected acute intra-abdominal process with peritoneal signs, abdominal mass, or similar findings (50)(51)(52) [X]XII. Severe physiologic disorder remaining after emergency or observation level care (as appropriate) as indicated by ANY ONE of the following (53): [ ]a) Significant dehydration [X ]b) Diabetic ketoacidosis [ ]c) Hyperglycemic hyperosmolar state (eg, osmolality greater than 320 mOsm/kg (mmol/kg) [ ]d) Hypoglycemia [ ]e) Other (new) acid-base disorder with pH less than 7.35 or greater than 7.5(54) [ ]f) Thyroid storm (55) [ ]g) Myxedema coma (55) [ ]XIII. Abdominal abnormalities with ANY ONE of the following(56)(57): [ ]a) Absent bowel sounds with complete ileus [ ]b) Signs of intestinal obstruction or peritonitis [E] [ ]c) Nausea and vomiting that cannot be controlled with outpatient or observation care [ ]XIV. Acute renal failure as indicated by new onset of ANY ONE of the following(9)(10)(11)(12)(13): [ ]a) A 3-fold rise in serum creatinine from baseline [ ]b) Serum creatinine greater than 4 mg/dL (354 micromoles/L) with acute rise greater than 0.5 mg/dL (44.2 micromoles/L) [ ]c) Reduction of more than 75% in estimated glomerular filtration rate from baseline [ ]d) Estimated glomerular filtration rate less than 35 mL/min/ 1.73m2 (0.59 mL/sec/1.73m2) in child up to 18 years of age [ ]e) Cessation of urine output indicated by ALL of the following: [ ]i) Adequate volume status [ ]ii) Inadequate urine output as indicated by ANY ONE of the following: [ ]1) Urine output less than 0.3 mL/kg/hr for 24 hours [ ]2) Anuria (urine output less than 0.1 mL/kg/hr) for 12 hours [ ]XV. Significant uremic complications as indicated by ANY ONE of the following(58)(59)(60): [ ]a) Outpatient therapy is ineffective or not feasible for ANY ONE of the following: [ ]i) Severe heart failure [ ]ii) Severehypertension [ ]iii) Pleural effusion [ ]iv) Pericarditis or pericardial effusion [ ]b) Cardiac arrhythmias of immediate concern [ ]c) Intractable nausea or vomiting [ ]d) Recurrent seizures [ ]e) Encephalopathy [ ]f) Bleeding abnormalities (eg, platelet dysfunction) with active (eg, gastrointestinal) bleeding [ ]g) Dialysis indicated before long-term access or ambulatory arrangements can be made [ ]h) Significant metabolic or electrolyte abnormalities (eg, severe acidosis or hyperkalemia) [ ]XVI. High fever or other high-risk infection situation as indicated by ANY ONE of the following(61)(62)(63)(64): [ ]a) Outpatient and observation care antimicrobial treatment unavailable, not effective, or not appropriate [ ]b) Documented bacteremia [ ]c) Temperature greater than 40.5 degrees C (104.9 degrees F) ( oral) [ ]d) Temperature greater than 39.5 degrees C (103.1 degrees F) ( oral) or less than 36 degrees C (96.8 degrees F) (rectal) that does not respond to e treatment and observation care [ ] XVII. Temperature less than 95 degrees F (35 degrees C)(rectal)(65) [ ] XVIII. Severe nutritional abnormalities as indicated by ALL of the following (66)(67): [ ]a) Inability to tolerate or establish sufficient oral or other enteral nutrition in outpatient setting [ ]b) Parenteral nutrition regimen need that must be implemented on inpatient basis [ ] XIX. Severe electrolyte abnormalities indicated by ALL of the following(68) (69)(70): [ ]a) Electrolytes and associated findings are not as expected for patient baseline or acceptable treatment effects. [ ]b) Severe abnormalities indicated by ANY ONE of the following: [ ]i) Sodium less than 130 mEq/L (mmol/L) (new) [ ]ii)Sodium less than 135 mEq/L (mmol/L) with ANY ONE of the following: [ ]1) Uncorrectable (to near normal or chronic baseline) after trial of outpatient and emergency treatment [ ]2) Altered mental status [ ]3) Seizures [ ]4) Severe medical etiology requiring inpatient management (eg, heart failure, hypovolemia) [ ]iii) Sodium greater than 155 mEq/L (mmol/L) [ ]iv) Sodium greater than 150 mEq/L (mmol/L) with ANY ONE of the following: [ ]1) Uncorrectable (to near normal or chronic baseline) with outpatient and emergency treatment [ ]2) Altered mental status [ ]3) Seizures [ ]4) Severe medical etiology (eg, hypovolemia, diabetes insipidus) [ ]v) Potassium less than 2.5 mEq/L (mmol/L) despite outpatient and emergency treatment [ ]vi) Potassium less than 3 mEq/L (mmol/L) with ANY ONE of the following: [ ]1) Weakness [ ]2) Cardiac abnormality (eg, arrhythmia, conduction disturbance) [ ]3) Cardiac ischemia [ ]4) Ileus [ ]5) Ongoing medical cause requiring inpatient management (eg, acute renal wasting or SIADH) [ ]6) Other severe symptoms [ ]vii) Potassium greater than 6.5 mEq/L (mmol/L) [ ]viii) Potassium greater than 5 mEq/L (mmol/L) with ANY ONE of the following: [ ]1) Uncorrectable (to near normal or chronic baseline) with outpatient and emergency treatment [ ]2) Severe ECG findings [F] [ ]3) Acute worsening of renal failure (creatinine greater than 2.5 mg/dL (221 micromoles/L) or significant elevation for age and size) [ ]4) Severe weakness [ ]5) Severe medical etiology (eg, hemolysis, infection, drug overdose) [ ]ix) Calcium less than 7 mg/dL (1.75 mmol/L) despite outpatient and emergency treatment (72) [ ]x) Calcium less than 8 mg/dL (2 mmol/L) with significant symptoms or findings; examples include(72): [ ]1) Altered mental status [ ]2) Muscle spasms [ ]3) Seizures [ ]4) Breathing difficulty [ ]5) Cardiac abnormality (eg, arrhythmia or conduction disturbance) [ ]xi) Calcium greater than 14 mg/dL (3.5 mmol/L)(72) [ ]xii) Calcium greater than 12 mg/dL (3 mmol/L) with ANY ONE of the following(72): [ ]1) Uncorrectable (to near normal or chronic baseline) with outpatient and emergency treatment [ ]2) Significant dehydration or hypovolemia as indicated by ALL of the following(70)(73)(74): [ ]A. Not resolved with initial treatments [ ]B. Clinically significant dehydration as indicated by ANY ONE of the following: [ ]a. Vomiting refractory to outpatient treatment (ie, precluding oral rehydration) [ ]b. Inability to drink [ ]c. Hypernatremia or other electrolyte abnormality unable to be corrected with outpatient and emergency treatment [ ]d. Failure to remain hydrated with outpatient therapy [ ]e. Reduced urine output [ ]f. Hypotension [ ]g. Serious cause for dehydration requiring acute hospitalization (eg, bowel obstruction, increased intracranial pressure, infectious cause) [ ]h. Child with ANY ONE of the following(75): [ ]1) Severe abdominal tenderness [ ]2) Adequate care not available at home [ ]3) Severe dehydration ( greater than 9% loss of body weight) [ ]4) Significant symptoms or findings; examples include: [ ]A. Altered mental status [ ]B. Cardiac abnormality (eg, arrhythmia, conduction disturbance) [ ]C. Malignant etiology requiring inpatient treatment [ ]xiii) Phosphorus less than 1 mg/dL (0.32 mmol/L) [ ]xiv) Phosphorus less than 1.5 mg/dL (0.48 mmol/L) with ANY ONE of the following: [ ]1) Patient unresponsive to outpatient and emergency treatment [ ]2) Significant symptoms or findings; examples include: [ ]A. Weakness [ ]B. Altered mental status [ ]C. Breathing difficulty [ ]D. Seizures [ ]E. Rhabdomyolysis [ ]xv) Phosphorus greater than 10 mg/dL (3.2 mmol/L) [ ]xvi) Phosphorus greater than 4.5 mg/dL (1.45 mmol/L) (new) with ANY ONE of the following: [ ]1) Severe medical etiology (eg, crush injury, acute renal failure) [ ]2) Associated hypocalcemia with significant findings; examples include: [ ]A. Neurologic symptoms [ ]B. Altered mental status [ ]C. Muscle spasms [ ]D. Seizures [ ]E. Breathing difficulty [ ]F. Cardiac abnormality (eg, arrhythmia, conduction disturbance) [ ]xvii) Magnesium less than 1 mg/dL (0.41 mmol/L) [ ]xviii) Magnesium less than 1.5 mg/dL (0.62 mmol/L) with ANY ONE of the following: [ ]1) Patient unresponsive to outpatient and emergency treatment [ ]2) Associated hypocalcemia with significant findings; examples include: [ ]A. Altered mental status [ ]B. Muscle spasms [ ]C. Seizures [ ]D. Breathing difficulty [ ]E. Cardiac abnormality (eg, arrhythmia , conduction disturbance) [ ]3) Associated hypokalemia (potassium less than 3 mEq/L (mmol/L)) with risk of arrhythmia [ ]xix) Magnesium greater than 4 mEq/L (2 mmol/L) [ ]xx) Magnesium greater than 2.5 mEq/L (1.25 mmol/L) with significant symptoms or findings; examples include: [ ]1) Weakness [ ]2) Altered mental status [ ]3) Cardiac abnormality (eg, arrhythmia, conduction disturbance) [ ]4) Breathing difficulty [ ]5) Severe medical etiology (eg, renal failure, hypovolemia) [ ]xxi) Uric acid greater than 20 mg/dL (1190 micromoles/L)(76) [ ]xxii) Uric acid greater than 8 mg/dL (476 micromoles/L) with significant symptoms or findings of tumor lysis syndrome; examples include(76): [ ]1) Creatinine greater than 1.5 times upper limit of normal [ ]2) Cardiac abnormality (eg, arrhythmia, conduction disturbance) [ ]3) Seizure [ ]XX. Acute blood loss causing significant abnormality as indicated by ANY ONE of the following(77)(78): [ ]a) Hemoglobin less than 10 g/dL (100 g/L) (not baseline) [ ]b) Hematocrit less than 30% (0.30) (not baseline) [ ]c) Repeat hematocrit decreased more than 2% (0.02) [ ]d) Uncontrolled bleeding [ ]XXI. Severe anemia indicated by ANY ONE of the following(78)(79): [ ]a) Altered mental status [ ]b) Chest pain [ ]c) Exertional dyspnea [ ]d) Syncope [ ]e) Other findings suggesting inadequate perfusion [ ]f) Treatment with transfusion or volume replacement is ineffective at resolving ANY ONE of the following [G]: [ ]i) Tachycardia for age [ ]ii) Orthostatic vital sign changes as indicated by ANY ONE of the following(80): [ ]1) Fall in SBP of 20 mm Hg or more 1 to 3 minutes after patient sits or stands from recumbent position [ ]2) Fall in DBP of 10 mm Hg or more 1 to 3 minutes after patient sits or stands from recumbent position [ ]XXII. High-risk low platelet count as indicated by ANY ONE of the following( 81)(82): [ ]a) Severe or life-threatening bleeding (eg, intracranial, major gastrointestinal, or extensive mucosal bleeding), with any reduced platelet count [ ]b) Platelet count less than 20,000/mm3 (20 x109/L) with any active bleeding [ ]c) Platelet count less than 10,000/mm3 (10 x109/L) with minor purpura or petechiae [ ]d) Platelet count less than 5000/mm3 (5 x109/L) [ ]e) Low platelet count with hemolytic anemia [ ]XXIII. Disseminated intravascular coagulation(77)(83) [ ]XXIV. Severe adverse drug or systemic toxin reaction requiring inpatient treatment; examples include(84)(85): [ ]a) Serotonin syndrome(86) [ ]b) Neuroleptic malignant syndrome(86) [ ]c) Cholinergic syndrome with severe symptoms (eg, bronchorrhea, weakness, mental status changes, seizures) [ ]d) Sympathetic syndrome with severe symptoms (eg, seizures, mental status changes, cardiac dysrhythmias) [ ]e) Anticholinergic syndrome [ ]XXV. Severe pain requiring acute inpatient management as indicated by ALL of the following (87)(88)(89): [ ]a) Continuous or frequent (eg, every 2 to 4 hours) parenteral analgesics required [H] [ ]b) Rapid improvement expected from treatment or acute intervention (eg, surgery, anesthesia procedure) [ ]XXVI.Severe behavioral health issues judged unmanageable at a lower level of care (eg, residential) in a patient who is ANY ONE of the following(91) [ ]a) Acutely suicidal [ ]b) A danger to self (eg, self-mutilating or suicidal behavior) [ ]c) A danger to others (eg, assaultive or homicidal behavior) [ ]d) Incapacitated because of grave disability (eg, inability to provide for self at lower level of care) (92) [ ]XXVII. Inpatient monitoring needed; examples include(1)(3)(87)(93)(94)(95)(96 ): [ ]a) Vital signs, neurologic signs, or vascular checks more frequently than every 4 hours [ ]b) Cardiac or respiratory monitoring beyond the scope (eg, over 24 hours) of observation care [ ]c) Pulmonary artery catheter monitoring [ ]d) Suspected compartment syndrome(97) (98) [ ]e) Cerebral bleeding, hydrocephalus, or vasospasm monitoring [ ]f) Increased intracranial pressure or cerebral edema monitoring [ ]g) monitoring [ ]XXVIII. Treatment requiring inpatient care; examples include: [ ]a) IV fluid to replace significant ongoing losses (greater than 3 L/m2 per day)(53) [ ]b) High concentration oxygen (greater than 40%)(33)(99)(100) [ ]c) Frequent respiratory therapy (more frequently than every 4 hours) to maintain airflow rates greater than 60% of baseline(33)(99)(100) [ ]d) Epidural analgesia(87) [ ]e) IV anticoagulation, vasoactive, or antiarrhythmic medication(19 )(23) [ ]f) Acute thrombolytics (generally require 24 hours of observation )(101)(102) [ ]XXIX. Emergency procedures needed; examples include: [ ]a) Emergency inpatient surgery [ ]b) Temporary pacemaker placement(103) [ ]c) Chest tube placement with active evacuation (eg, suction, drainage)(104) [ ]d) Emergent cardioversion(105) [ ]e) Emergent cardiac or vascular procedures (eg, cardiac catheterization, angioplasty) (17)(18) [ ]f) Emergent dialysis access placement and institution(10)(106) [ ]g) Emergent pericardiocentesis(107) [ ]h) Emergent plasmapheresis or leukapheresis(83) [ ]i) Emergent tracheostomy The original [employer] content created by [employer] has been revised. The portions of the content which have been revised are identified through the use of italic text or in bold, and [facility] has neither reviewed nor approved the modified material. All other unmodified content is copyright [employer]. Please see references footnoted in the original [employer] edition 2016 Admission Criteria Met?: Yes BRUCE FREEMAN Jan 31, 2017 04:58
[2017-01-31 05:25] LABS: BASO # 0.1 x10^3/uL (0.0-0.2); BASO % 1 % (0-3); EOS % 0 % (0-3); HEMATOCRIT 42.2 % (39.0-53.0); LYMPH # 2.4 x10^3/uL (1.0-4.8); LYMPH % 21 % (24-48); MEAN CORPUSCULAR HEMOGLOBIN 29 pg (25-35); MEAN CORPUSCULAR HGB CONC 33 g/dL (31-37); MEAN CORPUSCULAR VOLUME 85 fL (79-100); MONO % 11 % (0-9); NEUT % 68 % (31-73); PLATELET COUNT 128 x10^3/uL (140-400); RED BLOOD COUNT 4.93 x10^6/uL (4.30-5.70); RED CELL DISTRIBUTION WIDTH 14.5 % (11.5-14.5); WHITE BLOOD COUNT 11.8 x10^3/uL (4.0-11.0)
[2017-01-31 06:18] LABS: ALBUMIN 2.7 g/dL (3.4-5.0); DIRECT BILIRUBIN 0.2 mg/dL (0.0-0.2); TOTAL BILIRUBIN 0.7 mg/dL (0.2-1.0); TOTAL PROTEIN 6.1 g/dL (6.4-8.2)
[2017-01-31 07:01] LABS: CALCIUM 8.6 mg/dL (8.5-10.1); CREATININE 1.2 mg/dL (0.7-1.3); GFR 63.8; POTASSIUM 4.4 mmol/L (3.5-5.1)
[2017-01-31 07:04] LABS: MAGNESIUM 2.3 mg/dL (1.8-2.4)
[2017-01-31] MEDS: PANTOPRAZOLE 40 MG TABLET.DR. PO SCH (08:21)
[2017-01-31] MEDS: INSULIN ASPART 300 UNITS/3 ML INSULN.PEN SQ SCH ×3 (08:24→16:57)
[2017-01-31] MEDS ORDERED: METF500T9 PO (10:07)
[2017-01-31] MEDS ORDERED: SACU1TAB PO (10:07)
[2017-01-31] MEDS ORDERED: CARV6.25 PO (10:07)
[2017-01-31] MEDS ORDERED: INSU100I13 SQ (10:07)
[2017-01-31] MEDS ORDERED: ATOR20TA PO (10:07)
[2017-01-31] MEDS: AMIODARONE HCL 200 MG TABLET. PO SCH (10:30)
[2017-01-31] MEDS: CARVEDILOL 12.5 MG TABLET. PO SCH ×2 (10:31→17:00)
--- NOTE | 2017-01-31 10:45 | PDOC ---
PROGRESS NOTES Subjective Subjective Patient feeling better. He complained of mild soreness in his chest from repeated shock therapies. Objective Objective Vital Signs Date Time Temp Pulse Resp B/P (MAP) Pulse Ox O2 Delivery O2 Flow Rate FiO2 01/31/17 10:31 103 154/87 01/31/17 10:00 17 96 Room Air 01/31/17 09:18 2.0 01/31/17 08:00 100.0 100.0 Physical Exam Abdomen: Soft, No tenderness Heart: Normal S1, Normal S2, Other (heart rate slightly irregular) Extremities: Other (diminished pedal pulses ) General: Alert, Cooperative, No acute distress, Other (drowsy, oriented to person and place) HEENT: Atraumatic, Mucous membr. moist/pink Lungs: Clear to auscultation, Normal air movement, Other (left pectoral PPM incision well healed) Neuro: Sensation intact Skin: No breakdown, No significant lesion Assessment Assessment 1. NSTEMI; peak 1.097 in the setting of ARF, DKA, and multiple shock therapies. Doubt ACS. 2. AICD shock therapy: Device interrogation showed several shock therapies secondary to atrial fibrillation with rapid ventricular response. No definite ventricular tachycardia noted. Telemetry showed few episodes of atrial fibrillation definitely improved since amiodarone drip initiated. Changes to by mouth. Increase Coreg to 12.5 mg twice daily 3. Chronic systolic heart failure with ICM s/p ICD; LVEF reportedly 20%. Compensated. 4. CAD s/p PCI/stents. Continue secondary prevention measures including DAPT. 5. Hypertension; controlled. 6. Diabetes with DKA, POA. Per IM 7. ARF; Cr trending downward. 8. Leukocytosis/ lactic acidosis/ afebrile; empiric antibiotic therapy initiated. ID consulted. 9. Metabolic encephalopathy 10. Noncompliance Plan Plan of Care Problems Medical Problems: (1) DKA (diabetic ketoacidoses) Status: Acute Comment Review of Relevant I have reviewed the following items sebastian (where applicable) has been applied. Labs Laboratory Tests Test 01/30/17 11:46 01/30/17 12:00 01/30/17 12:53 01/30/17 14:00 Glucose (Fingerstick) 208 mg/dL (70-99) 195 mg/dL (70-99) 183 mg/dL (70-99) Sodium Level 130 mmol/L (136-145) Potassium Level 5.3 mmol/L (3.5-5.1) Chloride Level 99 mmol/L (98-107) Carbon Dioxide Level 17 mmol/L (21-32) Anion Gap 14 (6-14) Blood Urea Nitrogen 33 mg/dL (8-26) Creatinine 1.4 mg/dL (0.7-1.3) Estimated GFR (Cockcroft-Gault) 53.4 Glucose Level 210 mg/dL (70-99) Calcium Level 8.3 mg/dL (8.5-10.1) Phosphorus Level 3.0 mg/dL (2.6-4.7) Magnesium Level 2.6 mg/dL (1.8-2.4) Test 01/30/17 15:16 01/30/17 15:44 01/30/17 16:23 01/30/17 18:59 Glucose (Fingerstick) 151 mg/dL (70-99) 130 mg/dL (70-99) 204 mg/dL (70-99) Sodium Level 136 mmol/L (136-145) Potassium Level 3.7 mmol/L (3.5-5.1) Chloride Level 103 mmol/L (98-107) Carbon Dioxide Level 24 mmol/L (21-32) Anion Gap 9 (6-14) Blood Urea Nitrogen 27 mg/dL (8-26) Creatinine 1.4 mg/dL (0.7-1.3) Estimated GFR (Cockcroft-Gault) 53.4 Glucose Level 150 mg/dL (70-99) Calcium Level 8.1 mg/dL (8.5-10.1) Phosphorus Level 2.1 mg/dL (2.6-4.7) Magnesium Level 2.2 mg/dL (1.8-2.4) Test 01/31/17 00:08 01/31/17 04:30 01/31/17 05:07 01/31/17 08:20 Glucose (Fingerstick) 165 mg/dL (70-99) 169 mg/dL (70-99) 197 mg/dL (70-99) White Blood Count 11.8 x10^3/uL (4.0-11.0) Red Blood Count 4.93 x10^6/uL (4.30-5.70) Hemoglobin 14.0 g/dL (13.0-17.5) Hematocrit 42.2 % (39.0-53.0) Mean Corpuscular Volume 85 fL (79-100) Mean Corpuscular Hemoglobin 29 pg (25-35) Mean Corpuscular Hemoglobin Concent 33 g/dL (31-37) Red Cell Distribution Width 14.5 % (11.5-14.5) Platelet Count 128 x10^3/uL (140-400) Neutrophils (%) (Auto) 68 % (31-73) Lymphocytes (%) (Auto) 21 % (24-48) Monocytes (%) (Auto) 11 % (0-9) Eosinophils (%) (Auto) 0 % (0-3) Basophils (%) (Auto) 1 % (0-3) Neutrophils # (Auto) 8.0 x10^3uL (1.8-7.7) Lymphocytes # (Auto) 2.4 x10^3/uL (1.0-4.8) Monocytes # (Auto) 1.3 x10^3/uL (0.0-1.1) Eosinophils # (Auto) 0.0 x10^3/uL (0.0-0.7) Basophils # (Auto) 0.1 x10^3/uL (0.0-0.2) Sodium Level 136 mmol/L (136-145) Potassium Level 4.4 mmol/L (3.5-5.1) Chloride Level 102 mmol/L (98-107) Carbon Dioxide Level 21 mmol/L (21-32) Anion Gap 13 (6-14) Blood Urea Nitrogen 19 mg/dL (8-26) Creatinine 1.2 mg/dL (0.7-1.3) Estimated GFR (Cockcroft-Gault) 63.8 Glucose Level 174 mg/dL (70-99) Calcium Level 8.6 mg/dL (8.5-10.1) Phosphorus Level 2.0 mg/dL (2.6-4.7) Magnesium Level 2.3 mg/dL (1.8-2.4) Total Bilirubin 0.7 mg/dL (0.2-1.0) Direct Bilirubin 0.2 mg/dL (0.0-0.2) Aspartate Amino Transf (AST/SGOT) 24 U/L (15-37) Alanine Aminotransferase (ALT/SGPT) 20 U/L (16-63) Alkaline Phosphatase 82 U/L (46-116) Total Protein 6.1 g/dL (6.4-8.2) Albumin 2.7 g/dL (3.4-5.0) Microbiology 01/30/17 Blood Culture - Preliminary, Resulted NO GROWTH AFTER 1 DAY Medications Current Medications Adenosine (Adenocard) 6 mg STK-MED ONCE IV ; Start 01/30/17 at 16:46; Stop at 16:47; Status DC Amiodarone HCl (Cordarone) 200 mg DAILY PO Last administered on 01/31/17 10:30 ; Start 01/31/17 at 10:30 Amiodarone HCl 450 mg/Dextrose 259 ml @ 17.26 mls/ hr CONT PRN IV SEE I/O RECORD Last administered on 01/31/17 03:41; Start 01/30/17 at 22:15; Stop at 10:11; Status DC Calcium Carbonate/ Glycine (Tums) 500 mg PRN Q3HRS PRN PO INDIGESTION Last administered on 01/31/17 00:19; Start 01/30/17 at 13:00 Carvedilol (Coreg) 12.5 mg BIDWMEALS PO Last administered on 01/31/17 10:31; Start 01/31/17 at 11:30 Dextrose (Dextrose 50%-Water Syringe) 12.5 gm PRN Q15MIN PRN IV SEE COMMENTS; Start 01/30/17 at 17:45 Digoxin (Lanoxin) 500 mcg 1X ONCE IV Last administered on 01/30/17 16:54; Start 01/30/17 at 17:00; Stop 01/30/17 at 17:01; Status DC Heparin Sodium (Porcine) (Heparin Sodium) 3,000 unit PRN Q6HRS PRN IV FOR UFH LEVEL LESS THAN 0.2; Start 01/30/17 at 17:00 Heparin Sodium/ Dextrose 500 ml @ 0 mls/hr CONT PRN IV SEE I/O RECORD; Start at 17:00 Info (Anti-Coagulation Monitoring By Pharmacy) 1 each PRN DAILY PRN MC SEE COMMENTS; Start 01/30/17 at 17:00 Insulin Aspart (NovoLOG) 0-9 UNITS TIDWMEALS SQ Last administered on 01/31/17 08:24; Start 01/30/17 at 17:41 Insulin Detemir (Levemir) 40 units 1X ONCE SQ Last administered on 01/30/17 16 :46; Start 01/30/17 at 14:00; Stop 01/30/17 at 15:43; Status DC Lidocaine HCl (Lidocaine HCl 2% Abboject) 100 mg STK-MED ONCE .ROUTE ; Start 01/30/17 at 16:41; Stop 01/30/17 at 16:42; Status DC Metoprolol Tartrate (Lopressor) 2.5 mg 1X ONCE IVP Last administered on 17:44; Start 01/30/17 at 17:45; Stop 01/30/17 at 17:46; Status DC Metoprolol Tartrate (Lopressor) 50 mg BID PO ; Start 01/30/17 at 18:00; Stop 01/30 at 18:00; Status DC Morphine Sulfate 2 mg PRN Q2HR PRN IV PAIN Last administered on 01/31/17 08:48 ; Start 01/30/17 at 18:00 Pantoprazole Sodium (Protonix) 40 mg DAILYAC PO Last administered on 01/31/17 08:21; Start 01/30/17 at 13:30 Vitals/I & O Vital Sign - Last 24 Hours 01/30/17 01/30/17 01/30/17 01/30/17 11:00 12:00 12:00 13:00 Temp 99.2 99.2 Pulse 100 105 100 Resp 16 14 15 B/P (MAP) 173/90 (117) 149/84 (105) 169/98 (121) Pulse Ox 98 96 95 O2 Delivery Room Air Nasal Cannula Room Air Room Air O2 Flow Rate 2.0 01/30/17 01/30/17 01/30/17 01/30/17 14:00 15:00 16:00 16:00 Temp 99.0 99.0 Pulse 102 104 98 Resp 17 17 14 B/P (MAP) 153/88 (109) 132/73 (92) 148/85 (106) Pulse Ox 98 97 97 O2 Delivery Room Air Room Air Room Air Room Air 01/30/17 01/30/17 01/30/17 01/30/17 16:54 17:00 17:44 18:00 Pulse 171 156 166 84 Resp 16 18 B/P (MAP) 110/70 116/85 (95) 104/70 98/81 (87) Pulse Ox 95 97 O2 Delivery Room Air Room Air 01/30/17 01/30/17 01/30/17 01/30/17 18:02 19:00 20:00 20:00 Temp 99.9 99.9 Pulse 92 101 Resp 16 18 15 B/P (MAP) 135/68 (90) 117/64 (81) Pulse Ox 96 96 94 O2 Delivery Room Air Room Air Room Air 01/30/17 01/30/17 01/30/17 01/30/17 21:00 21:17 22:00 23:00 Pulse 98 98 97 Resp 18 20 17 16 B/P (MAP) 144/70 (94) 114/61 (78) 132/70 (90) Pulse Ox 95 94 94 97 O2 Delivery Room Air Room Air Room Air Room Air 01/30/17 01/31/17 01/31/17 01/31/17 23:59 00:00 00:19 01:00 Temp 99.2 99.2 Pulse 100 99 Resp 19 21 17 B/P (MAP) 141/70 (93) 154/73 (100) Pulse Ox 95 95 93 O2 Delivery Room Air Room Air Room Air Room Air 01/31/17 01/31/17 01/31/17 01/31/17 02:00 02:24 03:00 04:00 Temp 99.0 99.0 Pulse 97 97 95 Resp 13 14 14 13 B/P (MAP) 119/67 (84) 156/77 (103) 156/75 (102) Pulse Ox 95 95 95 95 O2 Delivery Room Air Room Air Room Air Room Air 01/31/17 01/31/17 01/31/17 01/31/17 04:00 05:00 06:00 07:00 Pulse 94 98 98 Resp 11 14 16 B/P (MAP) 128/72 (90) 97/59 (72) 167/76 (106) Pulse Ox 93 94 94 O2 Delivery Room Air Room Air Room Air Room Air 01/31/17 01/31/17 01/31/17 01/31/17 08:00 08:00 08:48 09:00 Temp 100.0 100.0 Pulse 97 101 Resp 17 20 16 B/P (MAP) 189/92 (124) 176/94 (121) Pulse Ox 95 94 96 O2 Delivery Room Air Room Air Room Air Room Air 01/31/17 01/31/17 01/31/17 01/31/17 09:18 10:00 10:30 10:31 Pulse 101 103 103 Resp 20 17 B/P (MAP) 140/84 (102) 154/87 154/87 Pulse Ox 96 96 O2 Delivery Room Air Room Air O2 Flow Rate 2.0 CRISTIAN LOPEZ MD Jan 31, 2017 10:45
--- NOTE | 2017-01-31 13:21 | PDOC ---
PROGRESS NOTES Chief Complaint Chief Complaint CC: AICD firing, DKA Cardiomyopathy post AICD, LVEF: 20% DM HTN PVD b/l fem-pop bypass History of Present Illness History of Present Illness Pt came inot ED for AICD firing 64 times during the prior day. Shocks were being delivered as the pt was in A-fib and the AICD misread the tachycardia. Pt was placed on amiodarone and rhythm is now controlled. Pt is still in pain from multiple shocks. Pt reacted to morphine with chills and sweats and was switched to oxycodone. Vitals Vitals Vital Signs Date Time Temp Pulse Resp B/P (MAP) Pulse Ox O2 Delivery O2 Flow Rate FiO2 01/31/17 12:00 98.3 90 16 99/61 (74) 98 Room Air 98.3 01/31/17 09:18 2.0 Physical Exam General: Alert, Cooperative, No acute distress, Other (drowsy, oriented to person and place) Heart: Regular rate, Normal S1, Normal S2 Lungs: Clear Abdomen: Soft, No tenderness Extremities: Other (diminished pedal pulses ) Skin: No breakdown, No significant lesion Labs LABS Laboratory Tests Test 01/30/17 14:00 01/30/17 15:16 01/30/17 15:44 01/30/17 16:23 Glucose (Fingerstick) 183 mg/dL (70-99) 151 mg/dL (70-99) 130 mg/dL (70-99) Sodium Level 136 mmol/L (136-145) Potassium Level 3.7 mmol/L (3.5-5.1) Chloride Level 103 mmol/L (98-107) Carbon Dioxide Level 24 mmol/L (21-32) Anion Gap 9 (6-14) Blood Urea Nitrogen 27 mg/dL (8-26) Creatinine 1.4 mg/dL (0.7-1.3) Estimated GFR (Cockcroft-Gault) 53.4 Glucose Level 150 mg/dL (70-99) Calcium Level 8.1 mg/dL (8.5-10.1) Phosphorus Level 2.1 mg/dL (2.6-4.7) Magnesium Level 2.2 mg/dL (1.8-2.4) Test 01/30/17 18:59 01/31/17 00:08 01/31/17 04:30 01/31/17 05:07 Glucose (Fingerstick) 204 mg/dL (70-99) 165 mg/dL (70-99) 169 mg/dL (70-99) White Blood Count 11.8 x10^3/uL (4.0-11.0) Red Blood Count 4.93 x10^6/uL (4.30-5.70) Hemoglobin 14.0 g/dL (13.0-17.5) Hematocrit 42.2 % (39.0-53.0) Mean Corpuscular Volume 85 fL (79-100) Mean Corpuscular Hemoglobin 29 pg (25-35) Mean Corpuscular Hemoglobin Concent 33 g/dL (31-37) Red Cell Distribution Width 14.5 % (11.5-14.5) Platelet Count 128 x10^3/uL (140-400) Neutrophils (%) (Auto) 68 % (31-73) Lymphocytes (%) (Auto) 21 % (24-48) Monocytes (%) (Auto) 11 % (0-9) Eosinophils (%) (Auto) 0 % (0-3) Basophils (%) (Auto) 1 % (0-3) Neutrophils # (Auto) 8.0 x10^3uL (1.8-7.7) Lymphocytes # (Auto) 2.4 x10^3/uL (1.0-4.8) Monocytes # (Auto) 1.3 x10^3/uL (0.0-1.1) Eosinophils # (Auto) 0.0 x10^3/uL (0.0-0.7) Basophils # (Auto) 0.1 x10^3/uL (0.0-0.2) Sodium Level 136 mmol/L (136-145) Potassium Level 4.4 mmol/L (3.5-5.1) Chloride Level 102 mmol/L (98-107) Carbon Dioxide Level 21 mmol/L (21-32) Anion Gap 13 (6-14) Blood Urea Nitrogen 19 mg/dL (8-26) Creatinine 1.2 mg/dL (0.7-1.3) Estimated GFR (Cockcroft-Gault) 63.8 Glucose Level 174 mg/dL (70-99) Calcium Level 8.6 mg/dL (8.5-10.1) Phosphorus Level 2.0 mg/dL (2.6-4.7) Magnesium Level 2.3 mg/dL (1.8-2.4) Total Bilirubin 0.7 mg/dL (0.2-1.0) Direct Bilirubin 0.2 mg/dL (0.0-0.2) Aspartate Amino Transf (AST/SGOT) 24 U/L (15-37) Alanine Aminotransferase (ALT/SGPT) 20 U/L (16-63) Alkaline Phosphatase 82 U/L (46-116) Total Protein 6.1 g/dL (6.4-8.2) Albumin 2.7 g/dL (3.4-5.0) Test 01/31/17 08:20 01/31/17 11:44 Glucose (Fingerstick) 197 mg/dL (70-99) 150 mg/dL (70-99) Review of Systems Review of Systems Complains of chest pain Complains of general body pain Assessment and Plan Assessmemt and Plan Problems Medical Problems: (1) DKA (diabetic ketoacidoses) Status: Acute CC: AICD firing: due to A-fib, now controlled with IV amiodarone, switch to PO today 01/31/17 DKA: Resolved, continue insulin, hold metformin until Cr. improves to baseline, F/U with glucose monitoring Cardiomyopathy post AICD, LVEF: 20%, added on [employer] lasik DM: Continue Tx as per DKA above HTN: Added on Entresto and Coreg, DC metroprolol PVD: Continue to monitor Dispo: DC once ok with Cards Problems: Comment Review of Relevant I have reviewed the following items sebastian (where applicable) has been applied. Labs Laboratory Tests Test 01/30/17 00:25 01/30/17 00:28 01/30/17 01:20 01/30/17 01:41 White Blood Count 21.2 x10^3/uL (4.0-11.0) Red Blood Count 5.75 x10^6/uL (4.30-5.70) Hemoglobin 16.3 g/dL (13.0-17.5) Hematocrit 52.2 % (39.0-53.0) Mean Corpuscular Volume 91 fL (79-100) Mean Corpuscular Hemoglobin 28 pg (25-35) Mean Corpuscular Hemoglobin Concent 31 g/dL (31-37) Red Cell Distribution Width 15.0 % (11.5-14.5) Platelet Count 243 x10^3/uL (140-400) Neutrophils (%) (Auto) 72 % (31-73) Lymphocytes (%) (Auto) 18 % (24-48) Monocytes (%) (Auto) 8 % (0-9) Eosinophils (%) (Auto) 0 % (0-3) Basophils (%) (Auto) 1 % (0-3) Neutrophils # (Auto) 15.3 x10^3uL (1.8-7.7) Lymphocytes # (Auto) 3.9 x10^3/uL (1.0-4.8) Monocytes # (Auto) 1.7 x10^3/uL (0.0-1.1) Eosinophils # (Auto) 0.1 x10^3/uL (0.0-0.7) Basophils # (Auto) 0.2 x10^3/uL (0.0-0.2) Segmented Neutrophils % 78 % (35-66) Band Neutrophils % 2 % (0-9) Lymphocytes % 14 % (24-48) Monocytes % 6 % (0-10) Platelet Estimate Adequate (ADEQUATE) Prothrombin Time 13.6 SEC (11.7-14.0) Prothromb Time International Ratio 1.1 (0.8-1.1) Sodium Level 126 mmol/L (136-145) Potassium Level 4.0 mmol/L (3.5-5.1) Chloride Level 83 mmol/L (98-107) Carbon Dioxide Level 12 mmol/L (21-32) Anion Gap 31 (6-14) Blood Urea Nitrogen 47 mg/dL (8-26) Creatinine 2.6 mg/dL (0.7-1.3) Estimated GFR (Cockcroft-Gault) 26.2 Glucose Level 781 mg/dL (70-99) Calcium Level 9.1 mg/dL (8.5-10.1) Magnesium Level 2.9 mg/dL (1.8-2.4) Total Bilirubin 1.2 mg/dL (0.2-1.0) Direct Bilirubin 0.3 mg/dL (0.0-0.2) Aspartate Amino Transf (AST/SGOT) 21 U/L (15-37) Alanine Aminotransferase (ALT/SGPT) 23 U/L (16-63) Alkaline Phosphatase 122 U/L (46-116) Creatine Kinase 204 U/L (39-308) Creatine Kinase MB (Mass) 3.5 ng/mL (0.0-3.6) Creatine Kinase MB Relative Index 1.7 % (0-4) Troponin I Quantitative 1.097 ng/mL (0.000-0.055) LY-Kwn-A-Type Natriuretic Peptide 2863 pg/mL (0-124) Total Protein 8.2 g/dL (6.4-8.2) Albumin 3.7 g/dL (3.4-5.0) Lipase 209 U/L (73-393) Thyroid Stimulating Hormone (TSH) 0.634 uIU/mL (0.358-3.74) Ethyl Alcohol Level < 10 mg/dL (0-10) Lactic Acid Level 7.3 mmol/L (0.4-2.0) Phosphorus Level 9.9 mg/dL (2.6-4.7) Urine Collection Type Unknown Urine Color Yellow Urine Clarity Clear Urine pH 5.0 Urine Specific [place] >=1.030 Urine Protein Negative mg/dL (NEG-TRACE) Urine Glucose (UA) >=1000 mg/dL (NEG) Urine Ketones (Stick) 40 mg/dL (NEG) Urine Blood Trace (NEG) Urine Nitrite Negative (NEG) Urine Bilirubin Small (NEG) Urine Urobilinogen Dipstick 0.2 mg/dL (0.2 mg/dL) Urine Leukocyte Esterase Negative (NEG) Urine RBC Occ /HPF (0-2) Urine WBC Occ /HPF (0-4) Urine Squamous Epithelial Cells Few /LPF Urine Amorphous Sediment Present /HPF Urine Bacteria 0 /HPF (0-FEW) Urine Mucus Slight /LPF Urine Opiates Screen Pos (NEG) Urine Methadone Screen Neg (NEG) Urine Barbiturates Neg (NEG) Urine Phencyclidine Screen Neg (NEG) Urine Amphetamine/Methamphetamine Neg (NEG) Urine Benzodiazepines Screen Neg (NEG) Urine Cocaine Screen Neg (NEG) Urine Cannabinoids Screen Neg (NEG) Urine Ethyl Alcohol Neg (NEG) O2 Saturation 95 % (92-99) Arterial Blood pH 7.25 (7.35-7.45) Arterial Blood pCO2 at Patient Temp 22 mmHg (35-46) Arterial Blood pO2 at Patient Temp 87 mmHg (75-108) Arterial Blood HCO3 9 mmol/L (21-28) Arterial Blood Base Excess -16 mmol/L (-3-3) Oxyhemoglobin 93.7 % Methemoglobin 0.6 % (0.0-1.9) Carbon Monoxide, Quantitative 0.7 % (0.0-1.9) FiO2 28.0 Test 01/30/17 03:10 01/30/17 04:41 01/30/17 05:00 01/30/17 05:23 Glucose Level 547 mg/dL (70-99) Lactic Acid Level 2.5 mmol/L (0.4-2.0) 2.9 mmol/L (0.4-2.0) Creatine Kinase 275 U/L (39-308) Creatine Kinase MB (Mass) 4.5 ng/mL (0.0-3.6) Creatine Kinase MB Relative Index 1.6 % (0-4) Troponin I Quantitative 0.896 ng/mL (0.000-0.055) Nasal Screen MRSA (PCR) Negative (Negative) Glucose (Fingerstick) 351 mg/dL (70-99) Test 01/30/17 06:23 01/30/17 06:30 01/30/17 07:28 01/30/17 08:34 Glucose (Fingerstick) 313 mg/dL (70-99) 187 mg/dL (70-99) 151 mg/dL (70-99) White Blood Count 16.6 x10^3/uL (4.0-11.0) Red Blood Count 5.91 x10^6/uL (4.30-5.70) Hemoglobin 16.4 g/dL (13.0-17.5) Hematocrit 51.6 % (39.0-53.0) Mean Corpuscular Volume 87 fL (79-100) Mean Corpuscular Hemoglobin 28 pg (25-35) Mean Corpuscular Hemoglobin Concent 32 g/dL (31-37) Red Cell Distribution Width 14.4 % (11.5-14.5) Platelet Count 188 x10^3/uL (140-400) Sodium Level 133 mmol/L (136-145) Potassium Level 4.1 mmol/L (3.5-5.1) Chloride Level 96 mmol/L (98-107) Carbon Dioxide Level 15 mmol/L (21-32) Anion Gap 22 (6-14) Blood Urea Nitrogen 44 mg/dL (8-26) Creatinine 1.9 mg/dL (0.7-1.3) Estimated GFR (Cockcroft-Gault) 37.6 Glucose Level 285 mg/dL (70-99) Calcium Level 8.8 mg/dL (8.5-10.1) Phosphorus Level 3.7 mg/dL (2.6-4.7) Magnesium Level 2.7 mg/dL (1.8-2.4) Troponin I Quantitative 0.919 ng/mL (0.000-0.055) Test 01/30/17 09:37 01/30/17 10:43 01/30/17 11:46 01/30/17 12:00 Glucose (Fingerstick) 159 mg/dL (70-99) 205 mg/dL (70-99) 208 mg/dL (70-99) Sodium Level 130 mmol/L (136-145) Potassium Level 5.3 mmol/L (3.5-5.1) Chloride Level 99 mmol/L (98-107) Carbon Dioxide Level 17 mmol/L (21-32) Anion Gap 14 (6-14) Blood Urea Nitrogen 33 mg/dL (8-26) Creatinine 1.4 mg/dL (0.7-1.3) Estimated GFR (Cockcroft-Gault) 53.4 Glucose Level 210 mg/dL (70-99) Calcium Level 8.3 mg/dL (8.5-10.1) Phosphorus Level 3.0 mg/dL (2.6-4.7) Magnesium Level 2.6 mg/dL (1.8-2.4) Test 01/30/17 12:53 01/30/17 14:00 01/30/17 15:16 01/30/17 15:44 Glucose (Fingerstick) 195 mg/dL (70-99) 183 mg/dL (70-99) 151 mg/dL (70-99) Sodium Level 136 mmol/L (136-145) Potassium Level 3.7 mmol/L (3.5-5.1) Chloride Level 103 mmol/L (98-107) Carbon Dioxide Level 24 mmol/L (21-32) Anion Gap 9 (6-14) Blood Urea Nitrogen 27 mg/dL (8-26) Creatinine 1.4 mg/dL (0.7-1.3) Estimated GFR (Cockcroft-Gault) 53.4 Glucose Level 150 mg/dL (70-99) Calcium Level 8.1 mg/dL (8.5-10.1) Phosphorus Level 2.1 mg/dL (2.6-4.7) Magnesium Level 2.2 mg/dL (1.8-2.4) Test 01/30/17 16:23 01/30/17 18:59 01/31/17 00:08 01/31/17 04:30 Glucose (Fingerstick) 130 mg/dL (70-99) 204 mg/dL (70-99) 165 mg/dL (70-99) White Blood Count 11.8 x10^3/uL (4.0-11.0) Red Blood Count 4.93 x10^6/uL (4.30-5.70) Hemoglobin 14.0 g/dL (13.0-17.5) Hematocrit 42.2 % (39.0-53.0) Mean Corpuscular Volume 85 fL (79-100) Mean Corpuscular Hemoglobin 29 pg (25-35) Mean Corpuscular Hemoglobin Concent 33 g/dL (31-37) Red Cell Distribution Width 14.5 % (11.5-14.5) Platelet Count 128 x10^3/uL (140-400) Neutrophils (%) (Auto) 68 % (31-73) Lymphocytes (%) (Auto) 21 % (24-48) Monocytes (%) (Auto) 11 % (0-9) Eosinophils (%) (Auto) 0 % (0-3) Basophils (%) (Auto) 1 % (0-3) Neutrophils # (Auto) 8.0 x10^3uL (1.8-7.7) Lymphocytes # (Auto) 2.4 x10^3/uL (1.0-4.8) Monocytes # (Auto) 1.3 x10^3/uL (0.0-1.1) Eosinophils # (Auto) 0.0 x10^3/uL (0.0-0.7) Basophils # (Auto) 0.1 x10^3/uL (0.0-0.2) Sodium Level 136 mmol/L (136-145) Potassium Level 4.4 mmol/L (3.5-5.1) Chloride Level 102 mmol/L (98-107) Carbon Dioxide Level 21 mmol/L (21-32) Anion Gap 13 (6-14) Blood Urea Nitrogen 19 mg/dL (8-26) Creatinine 1.2 mg/dL (0.7-1.3) Estimated GFR (Cockcroft-Gault) 63.8 Glucose Level 174 mg/dL (70-99) Calcium Level 8.6 mg/dL (8.5-10.1) Phosphorus Level 2.0 mg/dL (2.6-4.7) Magnesium Level 2.3 mg/dL (1.8-2.4) Total Bilirubin 0.7 mg/dL (0.2-1.0) Direct Bilirubin 0.2 mg/dL (0.0-0.2) Aspartate Amino Transf (AST/SGOT) 24 U/L (15-37) Alanine Aminotransferase (ALT/SGPT) 20 U/L (16-63) Alkaline Phosphatase 82 U/L (46-116) Total Protein 6.1 g/dL (6.4-8.2) Albumin 2.7 g/dL (3.4-5.0) Test 01/31/17 05:07 01/31/17 08:20 01/31/17 11:44 Glucose (Fingerstick) 169 mg/dL (70-99) 197 mg/dL (70-99) 150 mg/dL (70-99) Laboratory Tests Test 01/30/17 14:00 01/30/17 15:16 01/30/17 15:44 01/30/17 16:23 Glucose (Fingerstick) 183 mg/dL (70-99) 151 mg/dL (70-99) 130 mg/dL (70-99) Sodium Level 136 mmol/L (136-145) Potassium Level 3.7 mmol/L (3.5-5.1) Chloride Level 103 mmol/L (98-107) Carbon Dioxide Level 24 mmol/L (21-32) Anion Gap 9 (6-14) Blood Urea Nitrogen 27 mg/dL (8-26) Creatinine 1.4 mg/dL (0.7-1.3) Estimated GFR (Cockcroft-Gault) 53.4 Glucose Level 150 mg/dL (70-99) Calcium Level 8.1 mg/dL (8.5-10.1) Phosphorus Level 2.1 mg/dL (2.6-4.7) Magnesium Level 2.2 mg/dL (1.8-2.4) Test 01/30/17 18:59 01/31/17 00:08 01/31/17 04:30 01/31/17 05:07 Glucose (Fingerstick) 204 mg/dL (70-99) 165 mg/dL (70-99) 169 mg/dL (70-99) White Blood Count 11.8 x10^3/uL (4.0-11.0) Red Blood Count 4.93 x10^6/uL (4.30-5.70) Hemoglobin 14.0 g/dL (13.0-17.5) Hematocrit 42.2 % (39.0-53.0) Mean Corpuscular Volume 85 fL (79-100) Mean Corpuscular Hemoglobin 29 pg (25-35) Mean Corpuscular Hemoglobin Concent 33 g/dL (31-37) Red Cell Distribution Width 14.5 % (11.5-14.5) Platelet Count 128 x10^3/uL (140-400) Neutrophils (%) (Auto) 68 % (31-73) Lymphocytes (%) (Auto) 21 % (24-48) Monocytes (%) (Auto) 11 % (0-9) Eosinophils (%) (Auto) 0 % (0-3) Basophils (%) (Auto) 1 % (0-3) Neutrophils # (Auto) 8.0 x10^3uL (1.8-7.7) Lymphocytes # (Auto) 2.4 x10^3/uL (1.0-4.8) Monocytes # (Auto) 1.3 x10^3/uL (0.0-1.1) Eosinophils # (Auto) 0.0 x10^3/uL (0.0-0.7) Basophils # (Auto) 0.1 x10^3/uL (0.0-0.2) Sodium Level 136 mmol/L (136-145) Potassium Level 4.4 mmol/L (3.5-5.1) Chloride Level 102 mmol/L (98-107) Carbon Dioxide Level 21 mmol/L (21-32) Anion Gap 13 (6-14) Blood Urea Nitrogen 19 mg/dL (8-26) Creatinine 1.2 mg/dL (0.7-1.3) Estimated GFR (Cockcroft-Gault) 63.8 Glucose Level 174 mg/dL (70-99) Calcium Level 8.6 mg/dL (8.5-10.1) Phosphorus Level 2.0 mg/dL (2.6-4.7) Magnesium Level 2.3 mg/dL (1.8-2.4) Total Bilirubin 0.7 mg/dL (0.2-1.0) Direct Bilirubin 0.2 mg/dL (0.0-0.2) Aspartate Amino Transf (AST/SGOT) 24 U/L (15-37) Alanine Aminotransferase (ALT/SGPT) 20 U/L (16-63) Alkaline Phosphatase 82 U/L (46-116) Total Protein 6.1 g/dL (6.4-8.2) Albumin 2.7 g/dL (3.4-5.0) Test 01/31/17 08:20 01/31/17 11:44 Glucose (Fingerstick) 197 mg/dL (70-99) 150 mg/dL (70-99) Microbiology 01/30/17 Blood Culture - Preliminary, Resulted NO GROWTH AFTER 1 DAY Medications Current Medications Amiodarone HCl 150 mg/Dextrose 103 ml @ 400 mls/hr 1X ONCE IV Last administered on 01/30/17 00:27; Start 01/30/17 at 00:30; Stop 01/30/17 at 00:50; Status DC Sodium Chloride 1,000 ml @ 1,000 mls/hr 1X ONCE IV Last administered on 01:24; Start 01/30/17 at 01:30; Stop 01/30/17 at 02:29; Status DC Sodium Chloride 1,000 ml @ 1,000 mls/hr Q1H IV ; Start 01/30/17 at 01:38; Stop 01/30/17 at 02:37; Status DC Sodium Chloride 1,000 ml @ 500 mls/hr Q2H IV ; Start 01/30/17 at 01:39; Stop 01/30/17 at 03:38; Status DC Sodium Chloride 1,000 ml @ 250 mls/hr Q4H IV Last administered on 01/30/17 06: 25; Start 01/30/17 at 01:41; Stop 01/30/17 at 22:12; Status DC Sodium Chloride 1,000 ml @ 250 mls/hr Q4H IV ; Start 01/30/17 at 01:41; Stop 01/30/17 at 22:12; Status DC Dextrose/Sodium Chloride 1,000 ml @ 250 mls/hr Q4H IV ; Start 01/30/17 at 01:41 ; Stop 01/30/17 at 22:12; Status DC Insulin Human Regular 150 unit/ Sodium Chloride 151.5 ml @ 0 mls/hr CONT PRN PRN IV PER PROTOCOL Last administered on 01/30/17 02:08; Start 01/30/17 at 01:45 Potassium Chloride 100 ml @ 100 mls/hr PRN Q1HR PRN IV SEE COMMENTS Last administered on 01/30/17 10:48; Start 01/30/17 at 01:45 Potassium Chloride 100 ml @ 100 mls/hr PRN Q1HR PRN IV SEE COMMENTS; Start 01/30/17 at 01:45 Potassium Chloride 100 ml @ 100 mls/hr PRN Q1HR PRN IV SEE COMMENTS; Start 01/30/17 at 01:45 Insulin Human Regular 150 ml @ As Directed STK-MED ONCE IV ; Start 01/30/17 at 02:00; Stop 01/30/17 at 02:01; Status DC Amiodarone HCl 900 mg/Dextrose 518 ml @ 0 mls/hr CONT PRN IV SEE I/O RECORD Last administered on 01/30/17 02:24; Start 01/30/17 at 02:30; Stop 01/30/17 at 02: 30; Status DC Ondansetron HCl (Zofran) 4 mg PRN Q8HRS PRN IV NAUSEA/VOMITING Last administered on 01/30/17 20:58; Start 01/30/17 at 02:30; Stop 01/31/17 at 02:29; Status DC Metoprolol Tartrate (Lopressor) 5 mg STK-MED ONCE .ROUTE ; Start 01/30/17 at 03: 23; Stop 01/30/17 at 03:24; Status DC Metoprolol Tartrate (Lopressor) 5 mg 1X ONCE IVP Last administered on 03:25; Start 01/30/17 at 04:00; Stop 01/30/17 at 04:01; Status DC Sodium Chloride 1,000 ml @ 1,000 mls/hr 1X ONCE IV Last administered on 03:35; Start 01/30/17 at 04:30; Stop 01/30/17 at 05:29; Status DC Sodium Chloride 1,000 ml @ 1,000 mls/hr 1X ONCE IV Last administered on 03:40; Start 01/30/17 at 04:30; Stop 01/30/17 at 05:29; Status DC Sodium Chloride 400 ml @ 400 mls/hr 1X ONCE IV Last administered on 01/30/17 05:45; Start 01/30/17 at 05:30; Stop 01/30/17 at 06:29; Status DC Dextrose/Sodium Chloride 1,000 ml @ 250 mls/hr Q4H IV Last administered on 01/30 13:15; Start 01/30/17 at 09:15; Stop 01/30/17 at 22:12; Status DC Pantoprazole Sodium (Protonix) 40 mg DAILYAC PO Last administered on 01/31/17 08:21; Start 01/30/17 at 13:30 Calcium Carbonate/ Glycine (Tums) 500 mg PRN Q3HRS PRN PO INDIGESTION Last administered on 01/31/17 00:19; Start 01/30/17 at 13:00 Insulin Detemir (Levemir) 40 units 1X ONCE SQ Last administered on 01/30/17 16 :46; Start 01/30/17 at 14:00; Stop 01/30/17 at 15:43; Status DC Lidocaine HCl (Lidocaine HCl 2% Abboject) 100 mg STK-MED ONCE .ROUTE ; Start 01/30/17 at 16:41; Stop 01/30/17 at 16:42; Status DC Adenosine (Adenocard) 6 mg STK-MED ONCE IV ; Start 01/30/17 at 16:46; Stop at 16:47; Status DC Digoxin (Lanoxin) 500 mcg 1X ONCE IV Last administered on 01/30/17 16:54; Start 01/30/17 at 17:00; Stop 01/30/17 at 17:01; Status DC Heparin Sodium/ Dextrose 500 ml @ 0 mls/hr CONT PRN IV SEE I/O RECORD; Start at 17:00 Heparin Sodium (Porcine) (Heparin Sodium) 3,000 unit PRN Q6HRS PRN IV FOR UFH LEVEL LESS THAN 0.2; Start 01/30/17 at 17:00 Info (Anti-Coagulation Monitoring By Pharmacy) 1 each PRN DAILY PRN MC SEE COMMENTS; Start 01/30/17 at 17:00 Metoprolol Tartrate (Lopressor) 50 mg BID PO ; Start 01/30/17 at 18:00; Stop 01/30 at 18:00; Status DC Insulin Aspart (NovoLOG) 0-9 UNITS TIDWMEALS SQ Last administered on 01/31/17 11:57; Start 01/30/17 at 17:41 Dextrose (Dextrose 50%-Water Syringe) 12.5 gm PRN Q15MIN PRN IV SEE COMMENTS; Start 01/30/17 at 17:45 Metoprolol Tartrate (Lopressor) 2.5 mg 1X ONCE IVP Last administered on 17:44; Start 01/30/17 at 17:45; Stop 01/30/17 at 17:46; Status DC Morphine Sulfate 2 mg PRN Q2HR PRN IV PAIN Last administered on 01/31/17 08:48 ; Start 01/30/17 at 18:00; Stop 01/31/17 at 12:51; Status DC Amiodarone HCl 450 mg/Dextrose 259 ml @ 17.26 mls/ hr CONT PRN IV SEE I/O RECORD Last administered on 01/31/17 03:41; Start 01/30/17 at 22:15; Stop at 10:11; Status DC Amiodarone HCl (Cordarone) 200 mg DAILY PO Last administered on 01/31/17 10:30 ; Start 01/31/17 at 10:30 Carvedilol (Coreg) 12.5 mg BIDWMEALS PO Last administered on 01/31/17 10:31; Start 01/31/17 at 11:30 Tramadol HCl (Ultram) 50 mg PRN Q6HRS PRN PO PAIN; Start 01/31/17 at 13:00 Sacubitril/ Valsartan (Entresto 24 Mg-26 Mg) 1 tab BID PO ; Start 01/31/17 at 21: 00; Status UNV Active Scripts Active Reported Lipitor (Atorvastatin Calcium) 20 Mg Tablet 20 Mg PO HS Coreg (Carvedilol) 6.25 Mg Tablet 1 Tab PO BID Lantus Solostar (Insulin Glargine,Hum.rec.anlog) 100 Unit/1 Ml Insuln.pen 50 Unit SQ QHS Entresto 24 mg-26 mg Tablet (Sacubitril/Valsartan) 1 Each Tablet 1 Each PO DAILY Metformin Hcl Er (Metformin Hcl) 500 Mg Tab.er.24h 500 Mg PO BIDWMEALS Vitals/I & O Vital Sign - Last 24 Hours 01/30/17 01/30/17 01/30/17 01/30/17 14:00 15:00 16:00 16:00 Temp 99.0 99.0 Pulse 102 104 98 Resp 17 17 14 B/P (MAP) 153/88 (109) 132/73 (92) 148/85 (106) Pulse Ox 98 97 97 O2 Delivery Room Air Room Air Room Air Room Air 01/30/17 01/30/17 01/30/17 01/30/17 16:54 17:00 17:44 18:00 Pulse 171 156 166 84 Resp 16 18 B/P (MAP) 110/70 116/85 (95) 104/70 98/81 (87) Pulse Ox 95 97 O2 Delivery Room Air Room Air 01/30/17 01/30/17 01/30/17 01/30/17 18:02 19:00 20:00 20:00 Temp 99.9 99.9 Pulse 92 101 Resp 16 18 15 B/P (MAP) 135/68 (90) 117/64 (81) Pulse Ox 96 96 94 O2 Delivery Room Air Room Air Room Air 01/30/17 01/30/17 01/30/17 01/30/17 21:00 21:17 22:00 23:00 Pulse 98 98 97 Resp 18 20 17 16 B/P (MAP) 144/70 (94) 114/61 (78) 132/70 (90) Pulse Ox 95 94 94 97 O2 Delivery Room Air Room Air Room Air Room Air 01/30/17 01/31/17 01/31/17 01/31/17 23:59 00:00 00:19 01:00 Temp 99.2 99.2 Pulse 100 99 Resp 19 21 17 B/P (MAP) 141/70 (93) 154/73 (100) Pulse Ox 95 95 93 O2 Delivery Room Air Room Air Room Air Room Air 01/31/17 01/31/17 01/31/17 01/31/17 02:00 02:24 03:00 04:00 Temp 99.0 99.0 Pulse 97 97 95 Resp 13 14 14 13 B/P (MAP) 119/67 (84) 156/77 (103) 156/75 (102) Pulse Ox 95 95 95 95 O2 Delivery Room Air Room Air Room Air Room Air 01/31/17 01/31/17 01/31/17 01/31/17 04:00 05:00 06:00 07:00 Pulse 94 98 98 Resp 11 14 16 B/P (MAP) 128/72 (90) 97/59 (72) 167/76 (106) Pulse Ox 93 94 94 O2 Delivery Room Air Room Air Room Air Room Air 01/31/17 01/31/17 01/31/17 01/31/17 08:00 08:00 08:48 09:00 Temp 100.0 100.0 Pulse 97 101 Resp 17 20 16 B/P (MAP) 189/92 (124) 176/94 (121) Pulse Ox 95 94 96 O2 Delivery Room Air Room Air Room Air Room Air 01/31/17 01/31/17 01/31/17 01/31/17 09:18 10:00 10:30 10:31 Pulse 101 103 103 Resp 20 17 B/P (MAP) 140/84 (102) 154/87 154/87 Pulse Ox 96 96 O2 Delivery Room Air Room Air O2 Flow Rate 2.0 01/31/17 12:00 Temp 98.3 98.3 Pulse 90 Resp 16 B/P (MAP) 99/61 (74) Pulse Ox 98 O2 Delivery Room Air Intake and Output 01/31/17 01/31/17 02/01/17 15:00 23:00 07:00 Intake Total 170 ml Output Total 0 ml Balance 170 ml YANIRA MONDRAGON III DO Jan 31, 2017 13:21
[2017-01-31] MEDS: FUROSEMIDE 40 MG TABLET. PO SCH (13:35)
[2017-01-31] MEDS: traMADol 50 MG TABLET PO PRN ×2 (13:35→21:22)
[2017-01-31] MEDS: SACUBITRIL/VALSARTAN 24/26MG TABLET. PO SCH ×2 (14:43→21:18)
[2017-01-31] MEDS: oxyCODONE/APAP 7.5/325 1 TAB TABLET PO PRN (23:27)
[2017-01-31] MEDS: PHENOL ORAL SPRAY 177ML BOTTLE. PO PRN (23:29)
[2017-02-01 03:10] VITALS: BP 104/62
[2017-02-01] MEDS: traMADol 50 MG TABLET PO PRN ×3 (04:11→21:09)
[2017-02-01] MEDS: PHENOL ORAL SPRAY 177ML BOTTLE. PO PRN ×2 (04:11→09:24)
[2017-02-01 07:00] VITALS: BP 105/75
[2017-02-01] MEDS: CARVEDILOL 12.5 MG TABLET. PO SCH ×2 (08:00→17:32)
[2017-02-01] MEDS: oxyCODONE/APAP 7.5/325 1 TAB TABLET PO PRN ×2 (09:27→15:47)
[2017-02-01] MEDS: SACUBITRIL/VALSARTAN 24/26MG TABLET. PO SCH ×2 (09:28→21:09)
[2017-02-01] MEDS: FUROSEMIDE 40 MG TABLET. PO SCH (09:29)
[2017-02-01] MEDS: PANTOPRAZOLE 40 MG TABLET.DR. PO SCH (09:29)
[2017-02-01] MEDS: AMIODARONE HCL 200 MG TABLET. PO SCH (09:29)
[2017-02-01] MEDS: INSULIN ASPART 300 UNITS/3 ML INSULN.PEN SQ SCH ×3 (09:41→17:43)
--- NOTE | 2017-02-01 09:52 | PDOC ---
PROGRESS NOTES Chief Complaint Chief Complaint CC: AICD firing, DKA Cardiomyopathy post AICD, LVEF: 20% DM HTN PVD b/l fem-pop bypass History of Present Illness History of Present Illness Pt came inot ED for AICD firing 64 times during the prior day. Shocks were being delivered as the pt was in A-fib and the AICD misread the tachycardia. Pt was placed on amiodarone and rhythm is now controlled. Pt reacted to morphine with chills and sweats and was switched to oxycodone. Overnight pt was hypotensive. Pt is still in pain from multiple shocks with resulting fatigue. Vitals Vitals Vital Signs Date Time Temp Pulse Resp B/P (MAP) Pulse Ox O2 Delivery O2 Flow Rate FiO2 02/01/17 09:29 105 105/75 02/01/17 09:27 Room Air 02/01/17 07:00 98.2 18 94 98.2 01/31/17 09:18 2.0 Physical Exam General: Alert, Cooperative, No acute distress, Other (fatigued) Heart: Normal S1, Normal S2, Other (heart rate slightly irregular) Lungs: Clear Abdomen: Soft, No tenderness Extremities: Other (diminished pedal pulses ) Skin: No breakdown, No significant lesion Labs LABS Laboratory Tests Test 01/31/17 11:44 01/31/17 13:07 01/31/17 16:54 01/31/17 20:56 Glucose (Fingerstick) 150 mg/dL (70-99) 163 mg/dL (70-99) 157 mg/dL (70-99) 143 mg/dL (70-99) Test 02/01/17 08:25 Glucose (Fingerstick) 275 mg/dL (70-99) Review of Systems Review of Systems Pt complains of pain from shocks Pt complains of fatigue Assessment and Plan Assessmemt and Plan Problems Medical Problems: (1) DKA (diabetic ketoacidoses) Status: Acute AICD firing: due to A-fib, now controlled with IV amiodarone, switch to PO on 01/31/17 DKA: Resolved, continue insulin, hold metformin until Cr. improves to baseline, F/U with glucose monitoring Cardiomyopathy post AICD, LVEF: 20%, added on [employer] lasik DM: Continue Tx as per DKA above HTN: Added on Entresto and Coreg, continue to monitor, hypotensive during prior night PVD: Continue to monitor Dispo: Probable DC tomorrow if ok with Cards Problems: Comment Review of Relevant I have reviewed the following items sebastian (where applicable) has been applied. Labs Laboratory Tests Test 01/30/17 10:43 01/30/17 11:46 01/30/17 12:00 01/30/17 12:53 Glucose (Fingerstick) 205 mg/dL (70-99) 208 mg/dL (70-99) 195 mg/dL (70-99) Sodium Level 130 mmol/L (136-145) Potassium Level 5.3 mmol/L (3.5-5.1) Chloride Level 99 mmol/L (98-107) Carbon Dioxide Level 17 mmol/L (21-32) Anion Gap 14 (6-14) Blood Urea Nitrogen 33 mg/dL (8-26) Creatinine 1.4 mg/dL (0.7-1.3) Estimated GFR (Cockcroft-Gault) 53.4 Glucose Level 210 mg/dL (70-99) Calcium Level 8.3 mg/dL (8.5-10.1) Phosphorus Level 3.0 mg/dL (2.6-4.7) Magnesium Level 2.6 mg/dL (1.8-2.4) Test 01/30/17 14:00 01/30/17 15:16 01/30/17 15:44 01/30/17 16:23 Glucose (Fingerstick) 183 mg/dL (70-99) 151 mg/dL (70-99) 130 mg/dL (70-99) Sodium Level 136 mmol/L (136-145) Potassium Level 3.7 mmol/L (3.5-5.1) Chloride Level 103 mmol/L (98-107) Carbon Dioxide Level 24 mmol/L (21-32) Anion Gap 9 (6-14) Blood Urea Nitrogen 27 mg/dL (8-26) Creatinine 1.4 mg/dL (0.7-1.3) Estimated GFR (Cockcroft-Gault) 53.4 Glucose Level 150 mg/dL (70-99) Calcium Level 8.1 mg/dL (8.5-10.1) Phosphorus Level 2.1 mg/dL (2.6-4.7) Magnesium Level 2.2 mg/dL (1.8-2.4) Test 01/30/17 18:59 01/31/17 00:08 01/31/17 04:30 01/31/17 05:07 Glucose (Fingerstick) 204 mg/dL (70-99) 165 mg/dL (70-99) 169 mg/dL (70-99) White Blood Count 11.8 x10^3/uL (4.0-11.0) Red Blood Count 4.93 x10^6/uL (4.30-5.70) Hemoglobin 14.0 g/dL (13.0-17.5) Hematocrit 42.2 % (39.0-53.0) Mean Corpuscular Volume 85 fL (79-100) Mean Corpuscular Hemoglobin 29 pg (25-35) Mean Corpuscular Hemoglobin Concent 33 g/dL (31-37) Red Cell Distribution Width 14.5 % (11.5-14.5) Platelet Count 128 x10^3/uL (140-400) Neutrophils (%) (Auto) 68 % (31-73) Lymphocytes (%) (Auto) 21 % (24-48) Monocytes (%) (Auto) 11 % (0-9) Eosinophils (%) (Auto) 0 % (0-3) Basophils (%) (Auto) 1 % (0-3) Neutrophils # (Auto) 8.0 x10^3uL (1.8-7.7) Lymphocytes # (Auto) 2.4 x10^3/uL (1.0-4.8) Monocytes # (Auto) 1.3 x10^3/uL (0.0-1.1) Eosinophils # (Auto) 0.0 x10^3/uL (0.0-0.7) Basophils # (Auto) 0.1 x10^3/uL (0.0-0.2) Sodium Level 136 mmol/L (136-145) Potassium Level 4.4 mmol/L (3.5-5.1) Chloride Level 102 mmol/L (98-107) Carbon Dioxide Level 21 mmol/L (21-32) Anion Gap 13 (6-14) Blood Urea Nitrogen 19 mg/dL (8-26) Creatinine 1.2 mg/dL (0.7-1.3) Estimated GFR (Cockcroft-Gault) 63.8 Glucose Level 174 mg/dL (70-99) Calcium Level 8.6 mg/dL (8.5-10.1) Phosphorus Level 2.0 mg/dL (2.6-4.7) Magnesium Level 2.3 mg/dL (1.8-2.4) Total Bilirubin 0.7 mg/dL (0.2-1.0) Direct Bilirubin 0.2 mg/dL (0.0-0.2) Aspartate Amino Transf (AST/SGOT) 24 U/L (15-37) Alanine Aminotransferase (ALT/SGPT) 20 U/L (16-63) Alkaline Phosphatase 82 U/L (46-116) Total Protein 6.1 g/dL (6.4-8.2) Albumin 2.7 g/dL (3.4-5.0) Test 01/31/17 08:20 01/31/17 11:44 01/31/17 13:07 01/31/17 16:54 Glucose (Fingerstick) 197 mg/dL (70-99) 150 mg/dL (70-99) 163 mg/dL (70-99) 157 mg/dL (70-99) Test 01/31/17 20:56 02/01/17 08:25 Glucose (Fingerstick) 143 mg/dL (70-99) 275 mg/dL (70-99) Laboratory Tests Test 01/31/17 11:44 01/31/17 13:07 01/31/17 16:54 01/31/17 20:56 Glucose (Fingerstick) 150 mg/dL (70-99) 163 mg/dL (70-99) 157 mg/dL (70-99) 143 mg/dL (70-99) Test 02/01/17 08:25 Glucose (Fingerstick) 275 mg/dL (70-99) Microbiology 01/30/17 Blood Culture - Preliminary, Resulted NO GROWTH AFTER 2 DAYS Medications Current Medications Amiodarone HCl 150 mg/Dextrose 103 ml @ 400 mls/hr 1X ONCE IV Last administered on 01/30/17 00:27; Start 01/30/17 at 00:30; Stop 01/30/17 at 00:50; Status DC Sodium Chloride 1,000 ml @ 1,000 mls/hr 1X ONCE IV Last administered on 01:24; Start 01/30/17 at 01:30; Stop 01/30/17 at 02:29; Status DC Sodium Chloride 1,000 ml @ 1,000 mls/hr Q1H IV ; Start 01/30/17 at 01:38; Stop 01/30/17 at 02:37; Status DC Sodium Chloride 1,000 ml @ 500 mls/hr Q2H IV ; Start 01/30/17 at 01:39; Stop 01/30/17 at 03:38; Status DC Sodium Chloride 1,000 ml @ 250 mls/hr Q4H IV Last administered on 01/30/17 06: 25; Start 01/30/17 at 01:41; Stop 01/30/17 at 22:12; Status DC Sodium Chloride 1,000 ml @ 250 mls/hr Q4H IV ; Start 01/30/17 at 01:41; Stop 01/30/17 at 22:12; Status DC Dextrose/Sodium Chloride 1,000 ml @ 250 mls/hr Q4H IV ; Start 01/30/17 at 01:41 ; Stop 01/30/17 at 22:12; Status DC Insulin Human Regular 150 unit/ Sodium Chloride 151.5 ml @ 0 mls/hr CONT PRN PRN IV PER PROTOCOL Last administered on 01/30/17 02:08; Start 01/30/17 at 01:45 Potassium Chloride 100 ml @ 100 mls/hr PRN Q1HR PRN IV SEE COMMENTS Last administered on 01/30/17 10:48; Start 01/30/17 at 01:45 Potassium Chloride 100 ml @ 100 mls/hr PRN Q1HR PRN IV SEE COMMENTS; Start 01/30/17 at 01:45 Potassium Chloride 100 ml @ 100 mls/hr PRN Q1HR PRN IV SEE COMMENTS; Start 01/30/17 at 01:45 Insulin Human Regular 150 ml @ As Directed STK-MED ONCE IV ; Start 01/30/17 at 02:00; Stop 01/30/17 at 02:01; Status DC Amiodarone HCl 900 mg/Dextrose 518 ml @ 0 mls/hr CONT PRN IV SEE I/O RECORD Last administered on 01/30/17 02:24; Start 01/30/17 at 02:30; Stop 01/30/17 at 02: 30; Status DC Ondansetron HCl (Zofran) 4 mg PRN Q8HRS PRN IV NAUSEA/VOMITING Last administered on 01/30/17 20:58; Start 01/30/17 at 02:30; Stop 01/31/17 at 02:29; Status DC Metoprolol Tartrate (Lopressor) 5 mg STK-MED ONCE .ROUTE ; Start 01/30/17 at 03: 23; Stop 01/30/17 at 03:24; Status DC Metoprolol Tartrate (Lopressor) 5 mg 1X ONCE IVP Last administered on 03:25; Start 01/30/17 at 04:00; Stop 01/30/17 at 04:01; Status DC Sodium Chloride 1,000 ml @ 1,000 mls/hr 1X ONCE IV Last administered on 03:35; Start 01/30/17 at 04:30; Stop 01/30/17 at 05:29; Status DC Sodium Chloride 1,000 ml @ 1,000 mls/hr 1X ONCE IV Last administered on 03:40; Start 01/30/17 at 04:30; Stop 01/30/17 at 05:29; Status DC Sodium Chloride 400 ml @ 400 mls/hr 1X ONCE IV Last administered on 01/30/17 05:45; Start 01/30/17 at 05:30; Stop 01/30/17 at 06:29; Status DC Dextrose/Sodium Chloride 1,000 ml @ 250 mls/hr Q4H IV Last administered on 01/30 13:15; Start 01/30/17 at 09:15; Stop 01/30/17 at 22:12; Status DC Pantoprazole Sodium (Protonix) 40 mg DAILYAC PO Last administered on 02/01/17 09:29; Start 01/30/17 at 13:30 Calcium Carbonate/ Glycine (Tums) 500 mg PRN Q3HRS PRN PO INDIGESTION Last administered on 01/31/17 00:19; Start 01/30/17 at 13:00 Insulin Detemir (Levemir) 40 units 1X ONCE SQ Last administered on 01/30/17 16 :46; Start 01/30/17 at 14:00; Stop 01/30/17 at 15:43; Status DC Lidocaine HCl (Lidocaine HCl 2% Abboject) 100 mg STK-MED ONCE .ROUTE ; Start 01/30/17 at 16:41; Stop 01/30/17 at 16:42; Status DC Adenosine (Adenocard) 6 mg STK-MED ONCE IV ; Start 01/30/17 at 16:46; Stop at 16:47; Status DC Digoxin (Lanoxin) 500 mcg 1X ONCE IV Last administered on 01/30/17 16:54; Start 01/30/17 at 17:00; Stop 01/30/17 at 17:01; Status DC Heparin Sodium/ Dextrose 500 ml @ 0 mls/hr CONT PRN IV SEE I/O RECORD; Start at 17:00 Heparin Sodium (Porcine) (Heparin Sodium) 3,000 unit PRN Q6HRS PRN IV FOR UFH LEVEL LESS THAN 0.2; Start 01/30/17 at 17:00 Info (Anti-Coagulation Monitoring By Pharmacy) 1 each PRN DAILY PRN MC SEE COMMENTS; Start 01/30/17 at 17:00 Metoprolol Tartrate (Lopressor) 50 mg BID PO ; Start 01/30/17 at 18:00; Stop 01/30 at 18:00; Status DC Insulin Aspart (NovoLOG) 0-9 UNITS TIDWMEALS SQ Last administered on 02/01/17 09:41; Start 01/30/17 at 17:41 Dextrose (Dextrose 50%-Water Syringe) 12.5 gm PRN Q15MIN PRN IV SEE COMMENTS; Start 01/30/17 at 17:45 Metoprolol Tartrate (Lopressor) 2.5 mg 1X ONCE IVP Last administered on 17:44; Start 01/30/17 at 17:45; Stop 01/30/17 at 17:46; Status DC Morphine Sulfate 2 mg PRN Q2HR PRN IV PAIN Last administered on 01/31/17 08:48 ; Start 01/30/17 at 18:00; Stop 01/31/17 at 12:51; Status DC Amiodarone HCl 450 mg/Dextrose 259 ml @ 17.26 mls/ hr CONT PRN IV SEE I/O RECORD Last administered on 01/31/17 03:41; Start 01/30/17 at 22:15; Stop at 10:11; Status DC Amiodarone HCl (Cordarone) 200 mg DAILY PO Last administered on 02/01/17 09:29 ; Start 01/31/17 at 10:30 Carvedilol (Coreg) 12.5 mg BIDWMEALS PO Last administered on 01/31/17 10:31; Start 01/31/17 at 11:30 Tramadol HCl (Ultram) 50 mg PRN Q6HRS PRN PO PAIN Last administered on 04:11; Start 01/31/17 at 13:00 Sacubitril/ Valsartan (Entresto 24 Mg-26 Mg) 1 tab BID PO Last administered on 02/01/17 09:28; Start 01/31/17 at 13:30 Oxycodone/ Acetaminophen (Percocet 7.5/ 325) 1 tab PRN Q6HRS PRN PO PAIN Last administered on 02/01/17 09:27; Start 01/31/17 at 13:15 Furosemide (Lasix) 40 mg DAILY PO Last administered on 02/01/17 09:29; Start at 14:00 Throat Lozenges (Chloraseptic) 1 spray PRN Q2HR PRN PO SORE THROAT Last administered on 02/01/17 09:24; Start 01/31/17 at 23:15 Active Scripts Active Reported Lipitor (Atorvastatin Calcium) 20 Mg Tablet 20 Mg PO HS Coreg (Carvedilol) 6.25 Mg Tablet 1 Tab PO BID Lantus Solostar (Insulin Glargine,Hum.rec.anlog) 100 Unit/1 Ml Insuln.pen 50 Unit SQ QHS Entresto 24 mg-26 mg Tablet (Sacubitril/Valsartan) 1 Each Tablet 1 Each PO DAILY Metformin Hcl Er (Metformin Hcl) 500 Mg Tab.er.24h 500 Mg PO BIDWMEALS Vitals/I & O Vital Sign - Last 24 Hours 01/31/17 01/31/17 01/31/17 01/31/17 10:00 10:30 10:31 12:00 Temp 98.3 98.3 Pulse 101 103 103 90 Resp 17 16 B/P (MAP) 140/84 (102) 154/87 154/87 99/61 (74) Pulse Ox 96 98 O2 Delivery Room Air Room Air 01/31/17 01/31/17 01/31/17 01/31/17 13:35 14:35 14:43 16:00 Temp 98.3 98.3 Pulse 85 83 Resp 17 16 18 B/P (MAP) 122/73 92/59 (70) Pulse Ox 93 93 98 O2 Delivery Room Air Room Air 01/31/17 01/31/17 01/31/17 01/31/17 20:00 21:18 21:22 23:27 Pulse 90 B/P (MAP) 126/67 O2 Delivery Room Air Room Air Room Air 01/31/17 02/01/17 02/01/17 02/01/17 23:30 00:27 03:10 04:11 Temp 98.5 98.8 98.5 98.8 Pulse 95 93 Resp 16 16 B/P (MAP) 119/71 (87) 104/62 (76) Pulse Ox 94 92 O2 Delivery Room Air Room Air Room Air Room Air 02/01/17 02/01/17 02/01/17 02/01/17 05:11 07:00 09:27 09:28 Temp 98.2 98.2 Pulse 105 105 Resp 18 B/P (MAP) 105/75 (85) 105/75 Pulse Ox 94 O2 Delivery Room Air Room Air Room Air 02/01/17 09:29 Pulse 105 B/P (MAP) 105/75 YANIRA MONDRAGON III DO Feb 01, 2017 09:52
[2017-02-01 11:00] VITALS: BP_SYST 90; BP_SYST 91; BP_DIAS 57; BP_DIAS 58
--- NOTE | 2017-02-01 12:29 | PDOC ---
PROGRESS NOTES Subjective Subjective c/o right upper extremity edema and pain Objective Objective Vital Signs Date Time Temp Pulse Resp B/P (MAP) Pulse Ox O2 Delivery O2 Flow Rate FiO2 02/01/17 09:29 105 105/75 02/01/17 09:27 Room Air 02/01/17 07:00 98.2 18 94 98.2 01/31/17 09:18 2.0 Intake and Output 02/02/17 07:00 Intake Total 250 ml Balance 250 ml Intake Oral 250 ml Physical Exam Abdomen: Soft, No tenderness Heart: Normal S1, Normal S2, Other (heart rate slightly irregular) Extremities: Other (edema and mild tenderness right upper extremity) General: Alert, Cooperative, No acute distress, Other (drowsy, oriented to person and place) HEENT: Atraumatic, Mucous membr. moist/pink Lungs: Normal air movement, Other (left pectoral PPM incision well healed) Neuro: Sensation intact Skin: No breakdown, No significant lesion Assessment Assessment 1. NSTEMI; peak 1.097 in the setting of ARF, DKA, and multiple shock therapies. Doubt ACS. 2. AICD shock therapy: Device interrogation showed several shock therapies secondary to atrial fibrillation with rapid ventricular response. No definite ventricular tachycardia noted. Telemetry showed few episodes of atrial fibrillation definitely improved since amiodarone drip initiated. Continue amiodarone and Coreg. 3. Chronic systolic heart failure with ICM s/p ICD; LVEF 20%. Compensated. 4. CAD s/p PCI/stents. Continue secondary prevention measures including DAPT. 5. Hypertension; controlled. 6. Diabetes with DKA, POA. Per IM 7. DVT his right upper extremity based on preliminary report from US RUE: Anticoagulation per IM Plan Plan of Care Problems Medical Problems: (1) DKA (diabetic ketoacidoses) Status: Acute Comment Review of Relevant I have reviewed the following items sebastian (where applicable) has been applied. Labs Laboratory Tests Test 01/31/17 13:07 01/31/17 16:54 01/31/17 20:56 02/01/17 08:25 Glucose (Fingerstick) 163 mg/dL (70-99) 157 mg/dL (70-99) 143 mg/dL (70-99) 275 mg/dL (70-99) Test 02/01/17 10:29 02/01/17 12:11 Glucose (Fingerstick) 300 mg/dL (70-99) 253 mg/dL (70-99) Microbiology 01/30/17 Blood Culture - Preliminary, Resulted NO GROWTH AFTER 2 DAYS Medications Current Medications Furosemide (Lasix) 40 mg DAILY PO Last administered on 02/01/17 09:29; Start at 14:00 Oxycodone/ Acetaminophen (Percocet 7.5/ 325) 1 tab PRN Q6HRS PRN PO PAIN Last administered on 02/01/17 09:27; Start 01/31/17 at 13:15 Sacubitril/ Valsartan (Entresto 24 Mg-26 Mg) 1 tab BID PO Last administered on 02/01/17 09:28; Start 01/31/17 at 13:30 Throat Lozenges (Chloraseptic) 1 spray PRN Q2HR PRN PO SORE THROAT Last administered on 02/01/17 09:24; Start 01/31/17 at 23:15 Tramadol HCl (Ultram) 50 mg PRN Q6HRS PRN PO PAIN Last administered on 04:11; Start 01/31/17 at 13:00 Vitals/I & O Vital Sign - Last 24 Hours 01/31/17 01/31/17 01/31/17 01/31/17 13:35 14:35 14:43 16:00 Temp 98.3 98.3 Pulse 85 83 Resp 17 16 18 B/P (MAP) 122/73 92/59 (70) Pulse Ox 93 93 98 O2 Delivery Room Air Room Air 01/31/17 01/31/17 01/31/17 01/31/17 20:00 21:18 21:22 23:27 Pulse 90 B/P (MAP) 126/67 O2 Delivery Room Air Room Air Room Air 01/31/17 02/01/17 02/01/17 02/01/17 23:30 00:27 03:10 04:11 Temp 98.5 98.8 98.5 98.8 Pulse 95 93 Resp 16 16 B/P (MAP) 119/71 (87) 104/62 (76) Pulse Ox 94 92 O2 Delivery Room Air Room Air Room Air Room Air 02/01/17 02/01/17 02/01/17 02/01/17 05:11 07:00 09:27 09:28 Temp 98.2 98.2 Pulse 105 105 Resp 18 B/P (MAP) 105/75 (85) 105/75 Pulse Ox 94 O2 Delivery Room Air Room Air Room Air 02/01/17 09:29 Pulse 105 B/P (MAP) 105/75 Intake and Output 02/01/17 02/01/17 02/02/17 15:00 23:00 07:00 Intake Total 250 ml Balance 250 ml CRISTIAN LOPEZ MD Feb 01, 2017 12:29
[2017-02-01 15:00] VITALS: BP 115/82
--- NOTE | 2017-02-01 16:41 | RAD ---
Examination: Ultrasound right upper extremity venous duplex History: History of right arm swelling Comparison: None available Technique: Grayscale, color Doppler 2-D, spectral waveform and gas in the right upper extremity venous system was performed Findings: There is echogenicity identified in the right subclavian, axillary and brachial veins likely acute deep venous thrombosis. There is flow identified in the right jugular, basilic veins. There is echogenicity identified in the cephalic vein as well likely superficial vein thrombus. Impression: Findings consistent with acute deep venous thrombosis in the subclavian, axillary and brachial veins. There is superficial vein thrombus as well in the cephalic vein in the upper arm. Patient's nurse was informed at time of dictation.
[2017-02-01 19:35] VITALS: BP 111/72
[2017-02-01 23:34] VITALS: BP 109/68
[2017-02-02] VITALS (7 sets, daily range): BP systolic 97–114; BP diastolic 56–74
[2017-02-02] MEDS: oxyCODONE/APAP 7.5/325 1 TAB TABLET PO PRN ×3 (03:34→17:08)
[2017-02-02] MEDS ORDERED: CONTRAST GIVEN MC PRN (05:15)
[2017-02-02] MEDS ORDERED: IOHEXOL 300 MG/ML 75 ML VIAL IV ONE ×2 (05:30→14:30)
[2017-02-02 06:37] LABS: BASO % 0 % (0-3); EOS % 1 % (0-3); HEMATOCRIT 42.4 % (39.0-53.0); HEMOGLOBIN 14.2 g/dL (13.0-17.5); LYMPH # 2.3 x10^3/uL (1.0-4.8); LYMPH % 24 % (24-48); MEAN CORPUSCULAR HEMOGLOBIN 29 pg (25-35); MEAN CORPUSCULAR HGB CONC 34 g/dL (31-37); MEAN CORPUSCULAR VOLUME 86 fL (79-100); MONO % 11 % (0-9); NEUT % 64 % (31-73); PLATELET COUNT 116 x10^3/uL (140-400); RED BLOOD COUNT 4.96 x10^6/uL (4.30-5.70); RED CELL DISTRIBUTION WIDTH 14.3 % (11.5-14.5); WHITE BLOOD COUNT 9.8 x10^3/uL (4.0-11.0)
[2017-02-02 07:06] LABS: CALCIUM 8.8 mg/dL (8.5-10.1); CREATININE 0.9 mg/dL (0.7-1.3); POTASSIUM 3.9 mmol/L (3.5-5.1)
[2017-02-02] MEDS ORDERED: AMIODARONE 150 MG/3 ML VIAL ONE (07:21)
[2017-02-02] MEDS: INSULIN ASPART 300 UNITS/3 ML INSULN.PEN SQ SCH ×3 (08:00→17:13)
[2017-02-02] MEDS: PANTOPRAZOLE 40 MG TABLET.DR. PO SCH (09:08)
[2017-02-02] MEDS: AMIODARONE HCL 200 MG TABLET. PO SCH (09:09)
[2017-02-02] MEDS: SACUBITRIL/VALSARTAN 24/26MG TABLET. PO SCH ×2 (09:09→10:00)
[2017-02-02] MEDS: PHENOL ORAL SPRAY 177ML BOTTLE. PO PRN ×2 (09:10→23:14)
[2017-02-02] MEDS: CARVEDILOL 12.5 MG TABLET. PO SCH (09:10)
[2017-02-02] MEDS: FUROSEMIDE 40 MG TABLET. PO SCH (09:10)
[2017-02-02] MEDS: CARVEDILOL 6.25 MG TABLET. PO SCH ×2 (10:00→21:40)
--- NOTE | 2017-02-02 11:42 | PDOC ---
PROGRESS NOTES Chief Complaint Chief Complaint CC: AICD firing, DKA, resolved New DVT, extensive, R arm, uncprovoked? Cardiomyopathy post AICD, LVEF: 20% DM HTN PVD b/l fem-pop bypass History of Present Illness History of Present Illness US R arm sept 3: Findings consistent with acute deep venous thrombosis in the subclavian, axillary and brachial veins. There is superficial vein thrombus as well in the cephalic vein in the upper arm. Seems like developed here while in house - did not come for it Came for AICD firing and DKA, all resolved There is a Right peripheral IV INR 1.1 - never has had clots before Started on warf per pharmacy No good insurance PLAn: BEc of the nature of the extensive DVT, would recommend warf x 3-6 mos (no good insurance) Establish PCP for iNR monitoring Daily iNR Transfer peripheral line to Left arm - Jone sofia Vitals Vitals Vital Signs Date Time Temp Pulse Resp B/P (MAP) Pulse Ox O2 Delivery O2 Flow Rate FiO2 02/02/17 10:45 Room Air 02/02/17 09:10 93 110/71 02/02/17 07:00 98.9 19 95 98.9 Physical Exam General: Alert, Cooperative, No acute distress, Other (fatigued) Heart: Normal S1, Normal S2, Other (heart rate slightly irregular) Lungs: Clear Abdomen: Soft, No tenderness Extremities: Other (edema and mild tenderness right upper extremity) Skin: No breakdown, No significant lesion Labs LABS Laboratory Tests Test 02/01/17 12:11 02/01/17 15:49 02/01/17 16:58 02/02/17 05:52 Glucose (Fingerstick) 253 mg/dL (70-99) 159 mg/dL (70-99) 164 mg/dL (70-99) White Blood Count 9.8 x10^3/uL (4.0-11.0) Red Blood Count 4.96 x10^6/uL (4.30-5.70) Hemoglobin 14.2 g/dL (13.0-17.5) Hematocrit 42.4 % (39.0-53.0) Mean Corpuscular Volume 86 fL (79-100) Mean Corpuscular Hemoglobin 29 pg (25-35) Mean Corpuscular Hemoglobin Concent 34 g/dL (31-37) Red Cell Distribution Width 14.3 % (11.5-14.5) Platelet Count 116 x10^3/uL (140-400) Neutrophils (%) (Auto) 64 % (31-73) Lymphocytes (%) (Auto) 24 % (24-48) Monocytes (%) (Auto) 11 % (0-9) Eosinophils (%) (Auto) 1 % (0-3) Basophils (%) (Auto) 0 % (0-3) Neutrophils # (Auto) 6.3 x10^3uL (1.8-7.7) Lymphocytes # (Auto) 2.3 x10^3/uL (1.0-4.8) Monocytes # (Auto) 1.1 x10^3/uL (0.0-1.1) Eosinophils # (Auto) 0.1 x10^3/uL (0.0-0.7) Basophils # (Auto) 0.0 x10^3/uL (0.0-0.2) Sodium Level 136 mmol/L (136-145) Potassium Level 3.9 mmol/L (3.5-5.1) Chloride Level 100 mmol/L (98-107) Carbon Dioxide Level 22 mmol/L (21-32) Anion Gap 14 (6-14) Blood Urea Nitrogen 19 mg/dL (8-26) Creatinine 0.9 mg/dL (0.7-1.3) Estimated GFR (Cockcroft-Gault) 89.0 Glucose Level 216 mg/dL (70-99) Calcium Level 8.8 mg/dL (8.5-10.1) Test 02/02/17 07:41 Glucose (Fingerstick) 233 mg/dL (70-99) Review of Systems Review of Systems R arm pain and swelling Assessment and Plan Assessmemt and Plan Problems Medical Problems: (1) DKA (diabetic ketoacidoses) Status: Acute Problems: Comment Review of Relevant I have reviewed the following items sebastian (where applicable) has been applied. Labs Laboratory Tests Test 01/31/17 11:44 01/31/17 13:07 01/31/17 16:54 01/31/17 20:56 Glucose (Fingerstick) 150 mg/dL (70-99) 163 mg/dL (70-99) 157 mg/dL (70-99) 143 mg/dL (70-99) Test 02/01/17 08:25 02/01/17 10:29 02/01/17 12:11 02/01/17 15:49 Glucose (Fingerstick) 275 mg/dL (70-99) 300 mg/dL (70-99) 253 mg/dL (70-99) 159 mg/dL (70-99) Test 02/01/17 16:58 02/02/17 05:52 02/02/17 07:41 Glucose (Fingerstick) 164 mg/dL (70-99) 233 mg/dL (70-99) White Blood Count 9.8 x10^3/uL (4.0-11.0) Red Blood Count 4.96 x10^6/uL (4.30-5.70) Hemoglobin 14.2 g/dL (13.0-17.5) Hematocrit 42.4 % (39.0-53.0) Mean Corpuscular Volume 86 fL (79-100) Mean Corpuscular Hemoglobin 29 pg (25-35) Mean Corpuscular Hemoglobin Concent 34 g/dL (31-37) Red Cell Distribution Width 14.3 % (11.5-14.5) Platelet Count 116 x10^3/uL (140-400) Neutrophils (%) (Auto) 64 % (31-73) Lymphocytes (%) (Auto) 24 % (24-48) Monocytes (%) (Auto) 11 % (0-9) Eosinophils (%) (Auto) 1 % (0-3) Basophils (%) (Auto) 0 % (0-3) Neutrophils # (Auto) 6.3 x10^3uL (1.8-7.7) Lymphocytes # (Auto) 2.3 x10^3/uL (1.0-4.8) Monocytes # (Auto) 1.1 x10^3/uL (0.0-1.1) Eosinophils # (Auto) 0.1 x10^3/uL (0.0-0.7) Basophils # (Auto) 0.0 x10^3/uL (0.0-0.2) Sodium Level 136 mmol/L (136-145) Potassium Level 3.9 mmol/L (3.5-5.1) Chloride Level 100 mmol/L (98-107) Carbon Dioxide Level 22 mmol/L (21-32) Anion Gap 14 (6-14) Blood Urea Nitrogen 19 mg/dL (8-26) Creatinine 0.9 mg/dL (0.7-1.3) Estimated GFR (Cockcroft-Gault) 89.0 Glucose Level 216 mg/dL (70-99) Calcium Level 8.8 mg/dL (8.5-10.1) Laboratory Tests Test 02/01/17 12:11 02/01/17 15:49 02/01/17 16:58 02/02/17 05:52 Glucose (Fingerstick) 253 mg/dL (70-99) 159 mg/dL (70-99) 164 mg/dL (70-99) White Blood Count 9.8 x10^3/uL (4.0-11.0) Red Blood Count 4.96 x10^6/uL (4.30-5.70) Hemoglobin 14.2 g/dL (13.0-17.5) Hematocrit 42.4 % (39.0-53.0) Mean Corpuscular Volume 86 fL (79-100) Mean Corpuscular Hemoglobin 29 pg (25-35) Mean Corpuscular Hemoglobin Concent 34 g/dL (31-37) Red Cell Distribution Width 14.3 % (11.5-14.5) Platelet Count 116 x10^3/uL (140-400) Neutrophils (%) (Auto) 64 % (31-73) Lymphocytes (%) (Auto) 24 % (24-48) Monocytes (%) (Auto) 11 % (0-9) Eosinophils (%) (Auto) 1 % (0-3) Basophils (%) (Auto) 0 % (0-3) Neutrophils # (Auto) 6.3 x10^3uL (1.8-7.7) Lymphocytes # (Auto) 2.3 x10^3/uL (1.0-4.8) Monocytes # (Auto) 1.1 x10^3/uL (0.0-1.1) Eosinophils # (Auto) 0.1 x10^3/uL (0.0-0.7) Basophils # (Auto) 0.0 x10^3/uL (0.0-0.2) Sodium Level 136 mmol/L (136-145) Potassium Level 3.9 mmol/L (3.5-5.1) Chloride Level 100 mmol/L (98-107) Carbon Dioxide Level 22 mmol/L (21-32) Anion Gap 14 (6-14) Blood Urea Nitrogen 19 mg/dL (8-26) Creatinine 0.9 mg/dL (0.7-1.3) Estimated GFR (Cockcroft-Gault) 89.0 Glucose Level 216 mg/dL (70-99) Calcium Level 8.8 mg/dL (8.5-10.1) Test 02/02/17 07:41 Glucose (Fingerstick) 233 mg/dL (70-99) Microbiology 01/30/17 Blood Culture - Preliminary, Resulted NO GROWTH AFTER 3 DAYS Medications Current Medications Amiodarone HCl 150 mg/Dextrose 103 ml @ 400 mls/hr 1X ONCE IV Last administered on 01/30/17 00:27; Start 01/30/17 at 00:30; Stop 01/30/17 at 00:50; Status DC Sodium Chloride 1,000 ml @ 1,000 mls/hr 1X ONCE IV Last administered on 01:24; Start 01/30/17 at 01:30; Stop 01/30/17 at 02:29; Status DC Sodium Chloride 1,000 ml @ 1,000 mls/hr Q1H IV ; Start 01/30/17 at 01:38; Stop 01/30/17 at 02:37; Status DC Sodium Chloride 1,000 ml @ 500 mls/hr Q2H IV ; Start 01/30/17 at 01:39; Stop 01/30/17 at 03:38; Status DC Sodium Chloride 1,000 ml @ 250 mls/hr Q4H IV Last administered on 01/30/17 06: 25; Start 01/30/17 at 01:41; Stop 01/30/17 at 22:12; Status DC Sodium Chloride 1,000 ml @ 250 mls/hr Q4H IV ; Start 01/30/17 at 01:41; Stop 01/30/17 at 22:12; Status DC Dextrose/Sodium Chloride 1,000 ml @ 250 mls/hr Q4H IV ; Start 01/30/17 at 01:41 ; Stop 01/30/17 at 22:12; Status DC Insulin Human Regular 150 unit/ Sodium Chloride 151.5 ml @ 0 mls/hr CONT PRN PRN IV PER PROTOCOL Last administered on 01/30/17 02:08; Start 01/30/17 at 01:45 Potassium Chloride 100 ml @ 100 mls/hr PRN Q1HR PRN IV SEE COMMENTS Last administered on 01/30/17 10:48; Start 01/30/17 at 01:45 Potassium Chloride 100 ml @ 100 mls/hr PRN Q1HR PRN IV SEE COMMENTS; Start 01/30/17 at 01:45 Potassium Chloride 100 ml @ 100 mls/hr PRN Q1HR PRN IV SEE COMMENTS; Start 01/30/17 at 01:45 Insulin Human Regular 150 ml @ As Directed STK-MED ONCE IV ; Start 01/30/17 at 02:00; Stop 01/30/17 at 02:01; Status DC Amiodarone HCl 900 mg/Dextrose 518 ml @ 0 mls/hr CONT PRN IV SEE I/O RECORD Last administered on 01/30/17 02:24; Start 01/30/17 at 02:30; Stop 01/30/17 at 02: 30; Status DC Ondansetron HCl (Zofran) 4 mg PRN Q8HRS PRN IV NAUSEA/VOMITING Last administered on 01/30/17 20:58; Start 01/30/17 at 02:30; Stop 01/31/17 at 02:29; Status DC Metoprolol Tartrate (Lopressor) 5 mg STK-MED ONCE .ROUTE ; Start 01/30/17 at 03: 23; Stop 01/30/17 at 03:24; Status DC Metoprolol Tartrate (Lopressor) 5 mg 1X ONCE IVP Last administered on 03:25; Start 01/30/17 at 04:00; Stop 01/30/17 at 04:01; Status DC Sodium Chloride 1,000 ml @ 1,000 mls/hr 1X ONCE IV Last administered on 03:35; Start 01/30/17 at 04:30; Stop 01/30/17 at 05:29; Status DC Sodium Chloride 1,000 ml @ 1,000 mls/hr 1X ONCE IV Last administered on 03:40; Start 01/30/17 at 04:30; Stop 01/30/17 at 05:29; Status DC Sodium Chloride 400 ml @ 400 mls/hr 1X ONCE IV Last administered on 01/30/17 05:45; Start 01/30/17 at 05:30; Stop 01/30/17 at 06:29; Status DC Dextrose/Sodium Chloride 1,000 ml @ 250 mls/hr Q4H IV Last administered on 01/30 13:15; Start 01/30/17 at 09:15; Stop 01/30/17 at 22:12; Status DC Pantoprazole Sodium (Protonix) 40 mg DAILYAC PO Last administered on 02/02/17 09:08; Start 01/30/17 at 13:30 Calcium Carbonate/ Glycine (Tums) 500 mg PRN Q3HRS PRN PO INDIGESTION Last administered on 01/31/17 00:19; Start 01/30/17 at 13:00 Insulin Detemir (Levemir) 40 units 1X ONCE SQ Last administered on 01/30/17 16 :46; Start 01/30/17 at 14:00; Stop 01/30/17 at 15:43; Status DC Lidocaine HCl (Lidocaine HCl 2% Abboject) 100 mg STK-MED ONCE .ROUTE ; Start 01/30/17 at 16:41; Stop 01/30/17 at 16:42; Status DC Adenosine (Adenocard) 6 mg STK-MED ONCE IV ; Start 01/30/17 at 16:46; Stop at 16:47; Status DC Digoxin (Lanoxin) 500 mcg 1X ONCE IV Last administered on 01/30/17 16:54; Start 01/30/17 at 17:00; Stop 01/30/17 at 17:01; Status DC Heparin Sodium/ Dextrose 500 ml @ 0 mls/hr CONT PRN IV SEE I/O RECORD; Start at 17:00; Status Cancel Heparin Sodium (Porcine) (Heparin Sodium) 3,000 unit PRN Q6HRS PRN IV FOR UFH LEVEL LESS THAN 0.2; Start 01/30/17 at 17:00; Stop 02/01/17 at 16:44; Status DC Info (Anti-Coagulation Monitoring By Pharmacy) 1 each PRN DAILY PRN MC SEE COMMENTS; Start 01/30/17 at 17:00 Metoprolol Tartrate (Lopressor) 50 mg BID PO ; Start 01/30/17 at 18:00; Stop 01/30 at 18:00; Status DC Insulin Aspart (NovoLOG) 0-9 UNITS TIDWMEALS SQ Last administered on 02/02/17 08:00; Start 01/30/17 at 17:41 Dextrose (Dextrose 50%-Water Syringe) 12.5 gm PRN Q15MIN PRN IV SEE COMMENTS; Start 01/30/17 at 17:45 Metoprolol Tartrate (Lopressor) 2.5 mg 1X ONCE IVP Last administered on 17:44; Start 01/30/17 at 17:45; Stop 01/30/17 at 17:46; Status DC Morphine Sulfate 2 mg PRN Q2HR PRN IV PAIN Last administered on 01/31/17 08:48 ; Start 01/30/17 at 18:00; Stop 01/31/17 at 12:51; Status DC Amiodarone HCl 450 mg/Dextrose 259 ml @ 17.26 mls/ hr CONT PRN IV SEE I/O RECORD Last administered on 01/31/17 03:41; Start 01/30/17 at 22:15; Stop at 10:11; Status DC Amiodarone HCl (Cordarone) 200 mg DAILY PO Last administered on 02/02/17 09:09 ; Start 01/31/17 at 10:30 Carvedilol (Coreg) 12.5 mg BIDWMEALS PO Last administered on 02/02/17 09:10; Start 01/31/17 at 11:30; Stop 02/02/17 at 09:40; Status DC Tramadol HCl (Ultram) 50 mg PRN Q6HRS PRN PO PAIN Last administered on 21:09; Start 01/31/17 at 13:00 Sacubitril/ Valsartan (Entresto 24 Mg-26 Mg) 1 tab BID PO Last administered on 02/02/17 09:09; Start 01/31/17 at 13:30; Stop 02/02/17 at 09:39; Status DC Oxycodone/ Acetaminophen (Percocet 7.5/ 325) 1 tab PRN Q6HRS PRN PO PAIN Last administered on 9/4/17at 10:45; Start 01/31/17 at 13:15 Furosemide (Lasix) 40 mg DAILY PO Last administered on 02/02/17 09:10; Start at 14:00 Throat Lozenges (Chloraseptic) 1 spray PRN Q2HR PRN PO SORE THROAT Last administered on 02/02/17 09:10; Start 01/31/17 at 23:15 Enoxaparin Sodium (Lovenox Per Pharmacy Treatment Dosing) 1 each PRN DAILY PRN MC SEE COMMENTS; Start 02/01/17 at 16:30 Warfarin Sodium (Coumadin Per Pharmacy) 1 each PRN DAILY PRN MC SEE COMMENTS; Start 02/02/17 at 16:00; Stop 02/02/17 at 16:00; Status DC Enoxaparin Sodium (Lovenox 120mg Syringe) 120 mg Q12H SQ Last administered on 04:03; Start 02/01/17 at 17:00 Iohexol (Omnipaque 300 Mg/ml) 75 ml 1X ONCE IV ; Start 02/02/17 at 05:30; Stop 02/02/17 at 05:31; Status DC Info (Do NOT chart on this entry -- for MONITORING) 1 each PRN DAILY PRN MC SEE COMMENTS; Start 02/02/17 at 05:15; Stop 02/04/17 at 05:14 Atorvastatin Calcium (Lipitor) 20 mg HS PO ; Start 02/02/17 at 21:00 Carvedilol (Coreg) 6.25 mg BID PO ; Start 02/02/17 at 10:00 Metformin HCl (Glucophage Xr) 500 mg BIDWMEALS PO ; Start 02/02/17 at 17:00; Status UNV Sacubitril/ Valsartan (Entresto 24 Mg-26 Mg) 1 tab DAILY PO ; Start 02/02/17 at 10:00 Insulin Detemir (Levemir) 50 units QHS SQ ; Start 02/02/17 at 21:00 Active Scripts Active Reported Lipitor (Atorvastatin Calcium) 20 Mg Tablet 20 Mg PO HS Coreg (Carvedilol) 6.25 Mg Tablet 1 Tab PO BID Lantus Solostar (Insulin Glargine,Hum.rec.anlog) 100 Unit/1 Ml Insuln.pen 50 Unit SQ QHS Entresto 24 mg-26 mg Tablet (Sacubitril/Valsartan) 1 Each Tablet 1 Each PO DAILY Metformin Hcl Er (Metformin Hcl) 500 Mg Tab.er.24h 500 Mg PO BIDWMEALS Vitals/I & O Vital Sign - Last 24 Hours 02/01/17 02/01/17 02/01/17 02/01/17 13:02 15:00 15:47 17:00 Temp 97.8 97.8 Pulse 101 Resp 18 B/P (MAP) 115/82 (93) Pulse Ox 96 O2 Delivery Room Air Room Air Room Air Room Air 02/01/17 02/01/17 02/01/17 02/01/17 17:32 19:35 20:50 21:09 Temp 98.9 98.9 Pulse 93 95 Resp 16 20 B/P (MAP) 125/78 111/72 (85) Pulse Ox 95 O2 Delivery Room Air Room Air Room Air 02/01/17 02/01/17 02/01/17 02/02/17 21:09 22:09 23:34 03:08 Temp 98.6 98.5 98.6 98.5 Pulse 95 87 93 Resp 20 16 16 B/P (MAP) 111/72 109/68 (82) 110/71 (84) Pulse Ox 93 94 O2 Delivery Room Air Room Air Room Air 02/02/17 02/02/17 02/02/17 02/02/17 03:34 04:34 07:00 09:09 Temp 98.9 98.9 Pulse 91 93 Resp 18 18 19 B/P (MAP) 114/74 (87) 110/71 Pulse Ox 95 O2 Delivery Room Air Room Air 02/02/17 02/02/17 02/02/17 09:09 09:10 10:45 Pulse 93 93 B/P (MAP) 110/71 110/71 O2 Delivery Room Air Intake and Output 02/02/17 02/02/17 02/03/17 15:00 23:00 07:00 Intake Total 250 ml Balance 250 ml PAKO SALAZAR MD Feb 02, 2017 11:42
--- NOTE | 2017-02-02 11:54 | PDOC ---
PROGRESS NOTES Subjective Subjective Right arm pain and swelling unchanged Objective Objective Vital Signs Date Time Temp Pulse Resp B/P (MAP) Pulse Ox O2 Delivery O2 Flow Rate FiO2 02/02/17 10:45 Room Air 02/02/17 09:10 93 110/71 02/02/17 07:00 98.9 19 95 98.9 Intake and Output 02/03/17 07:00 Intake Total 250 ml Balance 250 ml Intake Oral 250 ml Physical Exam Abdomen: Soft, No tenderness Heart: Normal S1, Normal S2, Other (heart rate slightly irregular) Extremities: Other (edema and mild tenderness right upper extremity) General: Alert, Cooperative, No acute distress, Other (fatigued) HEENT: Atraumatic, Mucous membr. moist/pink Lungs: Normal air movement, Other (left pectoral PPM incision well healed) Neuro: Sensation intact Skin: No breakdown, No significant lesion Assessment Assessment 1. NSTEMI; peak 1.097 in the setting of ARF, DKA, and multiple shock therapies. Doubt ACS. 2. AICD shock therapy: Device interrogation showed several shock therapies secondary to atrial fibrillation with rapid ventricular response. No definite ventricular tachycardia noted. Telemetry showed few episodes of atrial fibrillation definitely improved with amiodarone. Continue Coreg. 3. Chronic systolic heart failure with ICM s/p ICD; LVEF 20%. Compensated. 4. CAD s/p PCI/stents. Continue secondary prevention measures including DAPT. 5. Hypertension; controlled. 6. Diabetes with DKA, POA. Per IM 7. Acute DVT right UE: Agree with initiating with warfarin and bridging with lovenox Plan Plan of Care Problems Medical Problems: (1) DKA (diabetic ketoacidoses) Status: Acute Comment Review of Relevant I have reviewed the following items sebastian (where applicable) has been applied. Labs Laboratory Tests Test 02/01/17 12:11 02/01/17 15:49 02/01/17 16:58 02/02/17 05:52 Glucose (Fingerstick) 253 mg/dL (70-99) 159 mg/dL (70-99) 164 mg/dL (70-99) White Blood Count 9.8 x10^3/uL (4.0-11.0) Red Blood Count 4.96 x10^6/uL (4.30-5.70) Hemoglobin 14.2 g/dL (13.0-17.5) Hematocrit 42.4 % (39.0-53.0) Mean Corpuscular Volume 86 fL (79-100) Mean Corpuscular Hemoglobin 29 pg (25-35) Mean Corpuscular Hemoglobin Concent 34 g/dL (31-37) Red Cell Distribution Width 14.3 % (11.5-14.5) Platelet Count 116 x10^3/uL (140-400) Neutrophils (%) (Auto) 64 % (31-73) Lymphocytes (%) (Auto) 24 % (24-48) Monocytes (%) (Auto) 11 % (0-9) Eosinophils (%) (Auto) 1 % (0-3) Basophils (%) (Auto) 0 % (0-3) Neutrophils # (Auto) 6.3 x10^3uL (1.8-7.7) Lymphocytes # (Auto) 2.3 x10^3/uL (1.0-4.8) Monocytes # (Auto) 1.1 x10^3/uL (0.0-1.1) Eosinophils # (Auto) 0.1 x10^3/uL (0.0-0.7) Basophils # (Auto) 0.0 x10^3/uL (0.0-0.2) Sodium Level 136 mmol/L (136-145) Potassium Level 3.9 mmol/L (3.5-5.1) Chloride Level 100 mmol/L (98-107) Carbon Dioxide Level 22 mmol/L (21-32) Anion Gap 14 (6-14) Blood Urea Nitrogen 19 mg/dL (8-26) Creatinine 0.9 mg/dL (0.7-1.3) Estimated GFR (Cockcroft-Gault) 89.0 Glucose Level 216 mg/dL (70-99) Calcium Level 8.8 mg/dL (8.5-10.1) Test 02/02/17 07:41 Glucose (Fingerstick) 233 mg/dL (70-99) Microbiology 01/30/17 Blood Culture - Preliminary, Resulted NO GROWTH AFTER 3 DAYS Medications Current Medications Atorvastatin Calcium (Lipitor) 20 mg HS PO ; Start 02/02/17 at 21:00 Carvedilol (Coreg) 6.25 mg BID PO ; Start 02/02/17 at 10:00 Enoxaparin Sodium (Lovenox 120mg Syringe) 120 mg Q12H SQ Last administered on t 04:03; Start 02/01/17 at 17:00 Enoxaparin Sodium (Lovenox Per Pharmacy Treatment Dosing) 1 each PRN DAILY PRN MC SEE COMMENTS; Start 02/01/17 at 16:30 Info (Do NOT chart on this entry -- for MONITORING) 1 each PRN DAILY PRN MC SEE COMMENTS; Start 02/02/17 at 05:15; Stop 02/04/17 at 05:14 Insulin Detemir (Levemir) 50 units QHS SQ ; Start 02/02/17 at 21:00 Iohexol (Omnipaque 300 Mg/ml) 75 ml 1X ONCE IV ; Start 02/02/17 at 05:30; Stop 02/02/17 at 05:31; Status DC Metformin HCl (Glucophage Xr) 500 mg BIDWMEALS PO ; Start 02/02/17 at 17:00; Status UNV Sacubitril/ Valsartan (Entresto 24 Mg-26 Mg) 1 tab DAILY PO ; Start 02/02/17 at 10:00 Warfarin Sodium (Coumadin Per Pharmacy) 1 each PRN DAILY PRN MC SEE COMMENTS; Start 02/02/17 at 16:00; Stop 02/02/17 at 16:00; Status DC Vitals/I & O Vital Sign - Last 24 Hours 02/01/17 02/01/17 02/01/17 02/01/17 13:02 15:00 15:47 17:00 Temp 97.8 97.8 Pulse 101 Resp 18 B/P (MAP) 115/82 (93) Pulse Ox 96 O2 Delivery Room Air Room Air Room Air Room Air 02/01/17 02/01/17 02/01/17 02/01/17 17:32 19:35 20:50 21:09 Temp 98.9 98.9 Pulse 93 95 Resp 16 20 B/P (MAP) 125/78 111/72 (85) Pulse Ox 95 O2 Delivery Room Air Room Air Room Air 02/01/17 02/01/17 02/01/17 02/02/17 21:09 22:09 23:34 03:08 Temp 98.6 98.5 98.6 98.5 Pulse 95 87 93 Resp 20 16 16 B/P (MAP) 111/72 109/68 (82) 110/71 (84) Pulse Ox 93 94 O2 Delivery Room Air Room Air Room Air 02/02/17 02/02/17 02/02/17 02/02/17 03:34 04:34 07:00 09:09 Temp 98.9 98.9 Pulse 91 93 Resp 18 18 19 B/P (MAP) 114/74 (87) 110/71 Pulse Ox 95 O2 Delivery Room Air Room Air 02/02/17 02/02/17 02/02/17 09:09 09:10 10:45 Pulse 93 93 B/P (MAP) 110/71 110/71 O2 Delivery Room Air Intake and Output 02/02/17 02/02/17 02/03/17 15:00 23:00 07:00 Intake Total 250 ml Balance 250 ml CRISTIAN LOPEZ MD Feb 02, 2017 11:54
[2017-02-02] MEDS: ANTI-COAG MONITOR BY PHARMACY. MC PRN (13:25)
--- NOTE | 2017-02-02 15:56 | PDOC2 ---
Consult: Imp: 1. acute right subclavian and axillary vein thrombosis 2. hx of CHF, placement of AICD via left sublavian 3. PVD, s/p bilateral fem-pop bypasses 4. obesity Rec: 1. check CTA chest to r/o PE. Hx of chest pain 2. begin chemical thrombolysis tomorrow. I discussed with Dr Malone. 3. IV heparin, arm elevation and compression sleeve 4. remove IV from right antecubital space. STEFANY CHAMBERLAIN II, MD Feb 02, 2017 15:56
--- NOTE | 2017-02-02 19:41 | RAD ---
EXAM: CT ANGIOGRAPHY OF THE CHEST WITH AND WITHOUT INTRAVENOUS CONTRAST. HISTORY: Chest pain. TECHNIQUE: Computed tomographic angiography of the chest was performed before and after the intravenous administration of iodinated contrast. 3-D maximum intensity projections were also performed. COMPARISON: None. FINDINGS: Images of the upper abdomen reveal cortical scarring of the upper pole the left kidney. The gallbladder is surgically absent. Bone windows reveal no suspicious lesions. No pulmonary emboli are identified. There is no aortic dissection or aneurysm. There are no pathologically enlarged mediastinal or axillary lymph nodes. There is no pleural or pericardial effusion. Left ventricular dilatation is noted. A left-sided pacemaker has its leads in the right atrium, right ventricle and a left cardiac vein. A 3 mm nodule in the left upper lobe on image 65 is likely benign at this small size. There is mild dependent atelectasis bilaterally. Mild to moderate centrilobular emphysema is suspected. IMPRESSION: 1. No pulmonary embolism. 2. Suspect mild to moderate centrilobular emphysema. 3. Left ventricular dilatation. 4. Cortical scarring in the left renal upper pole. *One or more of the following individualized dose reduction techniques were utilized for this examination: 1. Automated exposure control. 2. Adjustment of the mA and/or kV according to patient size. 3. Use of iterative reconstruction technique. Electronically signed by: Cary Foster MD (02/02/2017 7:38 PM) [facility]
[2017-02-02] MEDS: ATORVASTATIN CALCIUM 20 MG TABLET PO SCH (21:38)
[2017-02-02] MEDS: INSULIN DETEMIR 300 UNITS/3 ML INSULN.PEN. SQ SCH (21:42)
[2017-02-02] MEDS: traMADol 50 MG TABLET PO PRN (23:14)
[2017-02-03] VITALS (15 sets, daily range): BP systolic 100–180; BP diastolic 68–112
--- NOTE | 2017-02-03 00:44 | CONS ---
DATE OF CONSULTATION: 02/02/2017 VASCULAR SURGERY CONSULTATION CLINICAL HISTORY: A 51-year-old gentleman who presented to the Emergency Room with acute onset of swelling in the right arm as well as some issues with AICD firing multiple times over the previous 2 days. That is being investigated. An ultrasound of the right arm was done, which shows acute deep vein thrombosis of the subclavian and axillary veins. PAST MEDICAL HISTORY: Significant for cardiomyopathy, status post AICD placement a few months ago via the left subclavian vein. He has low ejection fraction of about 20%. He has history of diabetes, hypertension, peripheral arterial disease. PAST SURGICAL HISTORY: Includes bilateral fem-pop bypass grafts and the above-mentioned AICD placement. SOCIAL HISTORY: He has never smoked. ALLERGIES: None known. MEDICATIONS: Reviewed. REVIEW OF SYSTEMS: Twelve-point review of systems is negative except for complaints of little chest discomfort and now right arm pain and swelling. PHYSICAL EXAMINATION: GENERAL: The patient is alert and awake. ABDOMEN: Soft. EXTREMITIES: The left arm is without significant edema, is soft with easily palpable pulses. The right arm is moderately edematous, measuring greater than the left arm. There is an IV in the antecubital fossa. 2+ palpable radial pulses. Absent popliteal and pedal pulses. Both feet are warm and appear to be adequately perfused. There are no skin changes, no ulcers. LABORATORY DATA: Hemoglobin is 16.4. IMAGING STUDIES: As above. IMPRESSION: 1. Acute deep vein thrombosis of the upper arm involving the axillary and subclavian veins. There is moderate edema of the right arm and some discomfort associated. His symptoms are acute beginning 24 hours ago. 2. History of cardiomyopathy with resent placement of automatic implantable cardioverter-defibrillator via the left subclavian vein. RECOMMENDATION: Spoke with Dr. Crystal Malone, interventional radiologist, one of his procedures to proceed with venous thrombolysis of the right arm tomorrow. In the meantime, he is being treated with full anticoagulation and may benefit from compression sleeve. He would also benefits from arm elevation. We will follow along as needed. Thank you for allowing me to evaluate him. STEFANY CHAMBERLAIN MD DR: JAMIN/nadia JOB#: [id number] / [id number]
[2017-02-03] MEDS: PHENOL ORAL SPRAY 177ML BOTTLE. PO PRN ×3 (04:27→20:48)
[2017-02-03] MEDS: oxyCODONE/APAP 7.5/325 1 TAB TABLET PO PRN ×4 (04:27→23:13)
[2017-02-03 05:42] LABS: BASO % 0 % (0-3); EOS % 2 % (0-3); HEMATOCRIT 40.7 % (39.0-53.0); HEMOGLOBIN 13.6 g/dL (13.0-17.5); LYMPH # 2.7 x10^3/uL (1.0-4.8); LYMPH % 31 % (24-48); MEAN CORPUSCULAR HEMOGLOBIN 29 pg (25-35); MEAN CORPUSCULAR HGB CONC 34 g/dL (31-37); MEAN CORPUSCULAR VOLUME 86 fL (79-100); MONO % 14 % (0-9); NEUT % 52 % (31-73); PLATELET COUNT 160 x10^3/uL (140-400); RED BLOOD COUNT 4.73 x10^6/uL (4.30-5.70); RED CELL DISTRIBUTION WIDTH 14.6 % (11.5-14.5); WHITE BLOOD COUNT 8.6 x10^3/uL (4.0-11.0)
[2017-02-03 06:02] LABS: CALCIUM 8.6 mg/dL (8.5-10.1); GFR 78.8
[2017-02-03 06:12] LABS: POTASSIUM 2.9 mmol/L (3.5-5.1)
[2017-02-03 06:15] LABS: INR 1.2 (0.8-1.1); PROTHROMBIN TIME PATIENT 14.1 SEC (11.7-14.0)
[2017-02-03] MEDS: PANTOPRAZOLE 40 MG TABLET.DR. PO SCH (07:30)
[2017-02-03] MEDS: INSULIN ASPART 300 UNITS/3 ML INSULN.PEN SQ SCH ×3 (08:00→18:45)
[2017-02-03] MEDS ORDERED: POTASSIUM CHLORIDE 20 MEQ TABLET.ER. PO ONE ×3 (08:00→19:30)
[2017-02-03] MEDS: SACUBITRIL/VALSARTAN 24/26MG TABLET. PO SCH (09:00)
[2017-02-03] MEDS: FUROSEMIDE 40 MG TABLET. PO SCH (09:00)
--- NOTE | 2017-02-03 09:03 | PDOC ---
Provider Note Provider Note IR NOTE Mr Rodriguez is a 51 year old male with acute onset rue edema and pain. He was found to have extensive rue dvt involving the brachial, axillary, and subclavian veins. The etiology of the clot is uncertain. He does have a left sided pacemaker. He has multiple medical comorbidities including CHF with EF of 20% per patient. He was admitted with dka, renal failure, and afib. He has been on lovenox since the DVT was discovered. We discussed treatment options including thrombolysis, and anticoagulation. He denies any recent trauma or surgery. He denies history of stroke. Will plan on a venogram this afternoon with likely initiation tPA lysis via an infusion catheter. We will hold his lovenox, and he will need to be admitted to the ICU for close observation while on lytics. BLANCA POZO MD Feb 03, 2017 09:03
[2017-02-03] MEDS: AMIODARONE HCL 200 MG TABLET. PO SCH (10:17)
[2017-02-03] MEDS: CARVEDILOL 6.25 MG TABLET. PO SCH ×2 (10:18→20:43)
[2017-02-03] MEDS ORDERED: IOHEXOL 300 MG/ML 100ML VIAL. ONE (10:30)
[2017-02-03] MEDS ORDERED: LIDOCAINE 1% / SOD BICARB 8.4% 20 ML VIAL. IJ ONE ×2 (10:31→14:45)
--- NOTE | 2017-02-03 12:28 | PDOC ---
DEONTE LLANES ECHOCARDIOGRAPH TECHNICIAN 02/03/17 1228: CARDIO Progress Notes Date and Time Date of Service 02/03/2017 Time of Evaluation 1150 Subjective Subjective: No Chest Pain, No shortness of breath, No Palpitations Vitals Vitals Vital Signs Date Time Temp Pulse Resp B/P (MAP) Pulse Ox O2 Delivery O2 Flow Rate FiO2 02/03/17 11:06 97.7 88 18 100/79 (86) 97 Room Air 97.7 Weight Weight [ ] Input and Output Intake and Output Intake and Output 02/04/17 07:00 Output Total 600 ml Balance -600 ml Output Urine Total 600 ml Laboratory Labs Laboratory Tests Test 02/02/17 16:31 02/02/17 20:43 02/03/17 04:20 02/03/17 07:15 Glucose (Fingerstick) 170 mg/dL (70-99) 198 mg/dL (70-99) 111 mg/dL (70-99) White Blood Count 8.6 x10^3/uL (4.0-11.0) Red Blood Count 4.73 x10^6/uL (4.30-5.70) Hemoglobin 13.6 g/dL (13.0-17.5) Hematocrit 40.7 % (39.0-53.0) Mean Corpuscular Volume 86 fL (79-100) Mean Corpuscular Hemoglobin 29 pg (25-35) Mean Corpuscular Hemoglobin Concent 34 g/dL (31-37) Red Cell Distribution Width 14.6 % (11.5-14.5) Platelet Count 160 x10^3/uL (140-400) Neutrophils (%) (Auto) 52 % (31-73) Lymphocytes (%) (Auto) 31 % (24-48) Monocytes (%) (Auto) 14 % (0-9) Eosinophils (%) (Auto) 2 % (0-3) Basophils (%) (Auto) 0 % (0-3) Neutrophils # (Auto) 4.5 x10^3uL (1.8-7.7) Lymphocytes # (Auto) 2.7 x10^3/uL (1.0-4.8) Monocytes # (Auto) 1.2 x10^3/uL (0.0-1.1) Eosinophils # (Auto) 0.2 x10^3/uL (0.0-0.7) Basophils # (Auto) 0.0 x10^3/uL (0.0-0.2) Prothrombin Time 14.1 SEC (11.7-14.0) Prothromb Time International Ratio 1.2 (0.8-1.1) Sodium Level 137 mmol/L (136-145) Potassium Level 2.9 mmol/L (3.5-5.1) Chloride Level 99 mmol/L (98-107) Carbon Dioxide Level 29 mmol/L (21-32) Anion Gap 9 (6-14) Blood Urea Nitrogen 18 mg/dL (8-26) Creatinine 1.0 mg/dL (0.7-1.3) Estimated GFR (Cockcroft-Gault) 78.8 Glucose Level 154 mg/dL (70-99) Calcium Level 8.6 mg/dL (8.5-10.1) Test 02/03/17 11:43 Glucose (Fingerstick) 171 mg/dL (70-99) Microbiology Micro Microbiology 01/30/17 Blood Culture - Preliminary, Resulted NO GROWTH AFTER 4 DAYS Physical Exam HEENT: Neck Supple W Full Motion Chest: Symmetric LUNGS: Clear to Auscultation Heart: S1S2, RRR (paced) Abdomen: Soft N/T Extremities: No Calf Tenderness, Other (RUE swelling) Neurology: alert, oriented, follow commands Assessment Assessment 1. NSTEMI: peak 1.097 , demand mediated with underlying DKA, multiple shock therapy, MIKAL. 2. AICD shock therapy: Normal device with noted multiple device treatment delivery due to AFIB-RVR. No ventricular arrhythmias. 3. Chronic systolic heart failure with ICM s/p ICD; LVEF 20%. Compensated. 4. CAD s/p PCI/stents:1-2 yrs ago. Stable. 5. Hypertension; controlled. 6. Diabetes with DKA: improved 7. Acute DVT right UE: possible thrombolysis today per vascular surgery Recommendations 1. Continue with amiodarone and coreg 2. Continue with diuretic therapy 3. Continue secondary prevention measures and entresto 4. Replace K, check Mg and replace as warranted 5. Supportive care, follow up with [facility] when DC. 6. Will resume ECASA and anticoagulation when cleared byt other consultants post thrombolysis. CRISTIAN LOPEZ MD 02/03/172034: CARDIO Progress Notes Assessment Assessment Patient seen and examined. Agree with RUG LAYER's assessment and plan. Continue amiodarone for antiarrhythmic therapy Chronic systolic HF compensated Vascular surgery planning thrombolysis for RUE DVT DEONTE LLANES APRN Feb 03, 2017 12:28 CRISTIAN LOPEZ MD Feb 03, 2017 20:35
--- NOTE | 2017-02-03 12:35 | PDOC ---
PROGRESS NOTES Chief Complaint Chief Complaint CC: AICD firing, DKA, resolved New DVT, extensive, R arm, uncprovoked? Cardiomyopathy post AICD, LVEF: 20% DM HTN PVD b/l fem-pop bypass History of Present Illness History of Present Illness Planned for thrombolysis 1:30 PM later by IR Foreign piper on board and discussed it with IR INR low, started on coumadin yesterday Was on ASA and PLavix green coffee blender, (hx stents) Otherwise, no bleeding, issues overnight US R arm sept 3: Findings consistent with acute deep venous thrombosis in the subclavian, axillary and brachial veins. There is superficial vein thrombus as well in the cephalic vein in the upper arm. Seems like developed here while in house - did not come for it Came for AICD firing and DKA, all resolved Peripheral IV is now on the left side K 2.9 this AM PLAn: Thrombolysis later NPO now Kcl 80 total ordered by colleague foreign collection clerk Dw cards - to dc plavix (has been on it for 2 yrs approx) COumadin to start likely 24 hrs post lysis ICU post lysis Vitals Vitals Vital Signs Date Time Temp Pulse Resp B/P (MAP) Pulse Ox O2 Delivery O2 Flow Rate FiO2 02/03/17 11:06 97.7 88 18 100/79 (86) 97 Room Air 97.7 Physical Exam General: Alert, Cooperative, No acute distress, Other (fatigued) Heart: Normal S1, Normal S2, Other (heart rate slightly irregular) Lungs: Clear Abdomen: Soft, No tenderness Extremities: Other (edema and mild tenderness right upper extremity) Skin: No breakdown, No significant lesion Labs LABS Laboratory Tests Test 02/02/17 16:31 02/02/17 20:43 02/03/17 04:20 02/03/17 07:15 Glucose (Fingerstick) 170 mg/dL (70-99) 198 mg/dL (70-99) 111 mg/dL (70-99) White Blood Count 8.6 x10^3/uL (4.0-11.0) Red Blood Count 4.73 x10^6/uL (4.30-5.70) Hemoglobin 13.6 g/dL (13.0-17.5) Hematocrit 40.7 % (39.0-53.0) Mean Corpuscular Volume 86 fL (79-100) Mean Corpuscular Hemoglobin 29 pg (25-35) Mean Corpuscular Hemoglobin Concent 34 g/dL (31-37) Red Cell Distribution Width 14.6 % (11.5-14.5) Platelet Count 160 x10^3/uL (140-400) Neutrophils (%) (Auto) 52 % (31-73) Lymphocytes (%) (Auto) 31 % (24-48) Monocytes (%) (Auto) 14 % (0-9) Eosinophils (%) (Auto) 2 % (0-3) Basophils (%) (Auto) 0 % (0-3) Neutrophils # (Auto) 4.5 x10^3uL (1.8-7.7) Lymphocytes # (Auto) 2.7 x10^3/uL (1.0-4.8) Monocytes # (Auto) 1.2 x10^3/uL (0.0-1.1) Eosinophils # (Auto) 0.2 x10^3/uL (0.0-0.7) Basophils # (Auto) 0.0 x10^3/uL (0.0-0.2) Prothrombin Time 14.1 SEC (11.7-14.0) Prothromb Time International Ratio 1.2 (0.8-1.1) Sodium Level 137 mmol/L (136-145) Potassium Level 2.9 mmol/L (3.5-5.1) Chloride Level 99 mmol/L (98-107) Carbon Dioxide Level 29 mmol/L (21-32) Anion Gap 9 (6-14) Blood Urea Nitrogen 18 mg/dL (8-26) Creatinine 1.0 mg/dL (0.7-1.3) Estimated GFR (Cockcroft-Gault) 78.8 Glucose Level 154 mg/dL (70-99) Calcium Level 8.6 mg/dL (8.5-10.1) Magnesium Level 2.0 mg/dL (1.8-2.4) Test 02/03/17 11:43 Glucose (Fingerstick) 171 mg/dL (70-99) Review of Systems Review of Systems denies 14 pt Assessment and Plan Assessmemt and Plan Problems Medical Problems: (1) DKA (diabetic ketoacidoses) Status: Acute Problems: Comment Review of Relevant I have reviewed the following items sebastian (where applicable) has been applied. Labs Laboratory Tests Test 02/01/17 15:49 02/01/17 16:58 02/02/17 05:52 02/02/17 07:41 Glucose (Fingerstick) 159 mg/dL (70-99) 164 mg/dL (70-99) 233 mg/dL (70-99) White Blood Count 9.8 x10^3/uL (4.0-11.0) Red Blood Count 4.96 x10^6/uL (4.30-5.70) Hemoglobin 14.2 g/dL (13.0-17.5) Hematocrit 42.4 % (39.0-53.0) Mean Corpuscular Volume 86 fL (79-100) Mean Corpuscular Hemoglobin 29 pg (25-35) Mean Corpuscular Hemoglobin Concent 34 g/dL (31-37) Red Cell Distribution Width 14.3 % (11.5-14.5) Platelet Count 116 x10^3/uL (140-400) Neutrophils (%) (Auto) 64 % (31-73) Lymphocytes (%) (Auto) 24 % (24-48) Monocytes (%) (Auto) 11 % (0-9) Eosinophils (%) (Auto) 1 % (0-3) Basophils (%) (Auto) 0 % (0-3) Neutrophils # (Auto) 6.3 x10^3uL (1.8-7.7) Lymphocytes # (Auto) 2.3 x10^3/uL (1.0-4.8) Monocytes # (Auto) 1.1 x10^3/uL (0.0-1.1) Eosinophils # (Auto) 0.1 x10^3/uL (0.0-0.7) Basophils # (Auto) 0.0 x10^3/uL (0.0-0.2) Sodium Level 136 mmol/L (136-145) Potassium Level 3.9 mmol/L (3.5-5.1) Chloride Level 100 mmol/L (98-107) Carbon Dioxide Level 22 mmol/L (21-32) Anion Gap 14 (6-14) Blood Urea Nitrogen 19 mg/dL (8-26) Creatinine 0.9 mg/dL (0.7-1.3) Estimated GFR (Cockcroft-Gault) 89.0 Glucose Level 216 mg/dL (70-99) Calcium Level 8.8 mg/dL (8.5-10.1) Test 02/02/17 10:30 02/02/17 16:31 02/02/17 20:43 02/03/17 04:20 Glucose (Fingerstick) 198 mg/dL (70-99) 170 mg/dL (70-99) 198 mg/dL (70-99) White Blood Count 8.6 x10^3/uL (4.0-11.0) Red Blood Count 4.73 x10^6/uL (4.30-5.70) Hemoglobin 13.6 g/dL (13.0-17.5) Hematocrit 40.7 % (39.0-53.0) Mean Corpuscular Volume 86 fL (79-100) Mean Corpuscular Hemoglobin 29 pg (25-35) Mean Corpuscular Hemoglobin Concent 34 g/dL (31-37) Red Cell Distribution Width 14.6 % (11.5-14.5) Platelet Count 160 x10^3/uL (140-400) Neutrophils (%) (Auto) 52 % (31-73) Lymphocytes (%) (Auto) 31 % (24-48) Monocytes (%) (Auto) 14 % (0-9) Eosinophils (%) (Auto) 2 % (0-3) Basophils (%) (Auto) 0 % (0-3) Neutrophils # (Auto) 4.5 x10^3uL (1.8-7.7) Lymphocytes # (Auto) 2.7 x10^3/uL (1.0-4.8) Monocytes # (Auto) 1.2 x10^3/uL (0.0-1.1) Eosinophils # (Auto) 0.2 x10^3/uL (0.0-0.7) Basophils # (Auto) 0.0 x10^3/uL (0.0-0.2) Prothrombin Time 14.1 SEC (11.7-14.0) Prothromb Time International Ratio 1.2 (0.8-1.1) Sodium Level 137 mmol/L (136-145) Potassium Level 2.9 mmol/L (3.5-5.1) Chloride Level 99 mmol/L (98-107) Carbon Dioxide Level 29 mmol/L (21-32) Anion Gap 9 (6-14) Blood Urea Nitrogen 18 mg/dL (8-26) Creatinine 1.0 mg/dL (0.7-1.3) Estimated GFR (Cockcroft-Gault) 78.8 Glucose Level 154 mg/dL (70-99) Calcium Level 8.6 mg/dL (8.5-10.1) Magnesium Level 2.0 mg/dL (1.8-2.4) Test 02/03/17 07:15 02/03/17 11:43 Glucose (Fingerstick) 111 mg/dL (70-99) 171 mg/dL (70-99) Laboratory Tests Test 02/02/17 16:31 02/02/17 20:43 02/03/17 04:20 02/03/17 07:15 Glucose (Fingerstick) 170 mg/dL (70-99) 198 mg/dL (70-99) 111 mg/dL (70-99) White Blood Count 8.6 x10^3/uL (4.0-11.0) Red Blood Count 4.73 x10^6/uL (4.30-5.70) Hemoglobin 13.6 g/dL (13.0-17.5) Hematocrit 40.7 % (39.0-53.0) Mean Corpuscular Volume 86 fL (79-100) Mean Corpuscular Hemoglobin 29 pg (25-35) Mean Corpuscular Hemoglobin Concent 34 g/dL (31-37) Red Cell Distribution Width 14.6 % (11.5-14.5) Platelet Count 160 x10^3/uL (140-400) Neutrophils (%) (Auto) 52 % (31-73) Lymphocytes (%) (Auto) 31 % (24-48) Monocytes (%) (Auto) 14 % (0-9) Eosinophils (%) (Auto) 2 % (0-3) Basophils (%) (Auto) 0 % (0-3) Neutrophils # (Auto) 4.5 x10^3uL (1.8-7.7) Lymphocytes # (Auto) 2.7 x10^3/uL (1.0-4.8) Monocytes # (Auto) 1.2 x10^3/uL (0.0-1.1) Eosinophils # (Auto) 0.2 x10^3/uL (0.0-0.7) Basophils # (Auto) 0.0 x10^3/uL (0.0-0.2) Prothrombin Time 14.1 SEC (11.7-14.0) Prothromb Time International Ratio 1.2 (0.8-1.1) Sodium Level 137 mmol/L (136-145) Potassium Level 2.9 mmol/L (3.5-5.1) Chloride Level 99 mmol/L (98-107) Carbon Dioxide Level 29 mmol/L (21-32) Anion Gap 9 (6-14) Blood Urea Nitrogen 18 mg/dL (8-26) Creatinine 1.0 mg/dL (0.7-1.3) Estimated GFR (Cockcroft-Gault) 78.8 Glucose Level 154 mg/dL (70-99) Calcium Level 8.6 mg/dL (8.5-10.1) Magnesium Level 2.0 mg/dL (1.8-2.4) Test 02/03/17 11:43 Glucose (Fingerstick) 171 mg/dL (70-99) Microbiology 01/30/17 Blood Culture - Preliminary, Resulted NO GROWTH AFTER 4 DAYS Medications Current Medications Amiodarone HCl 150 mg/Dextrose 103 ml @ 400 mls/hr 1X ONCE IV Last administered on 01/30/17 00:27; Start 01/30/17 at 00:30; Stop 01/30/17 at 00:50; Status DC Sodium Chloride 1,000 ml @ 1,000 mls/hr 1X ONCE IV Last administered on 01:24; Start 01/30/17 at 01:30; Stop 01/30/17 at 02:29; Status DC Sodium Chloride 1,000 ml @ 1,000 mls/hr Q1H IV ; Start 01/30/17 at 01:38; Stop 01/30/17 at 02:37; Status DC Sodium Chloride 1,000 ml @ 500 mls/hr Q2H IV ; Start 01/30/17 at 01:39; Stop 01/30/17 at 03:38; Status DC Sodium Chloride 1,000 ml @ 250 mls/hr Q4H IV Last administered on 01/30/17 06: 25; Start 01/30/17 at 01:41; Stop 01/30/17 at 22:12; Status DC Sodium Chloride 1,000 ml @ 250 mls/hr Q4H IV ; Start 01/30/17 at 01:41; Stop 01/30/17 at 22:12; Status DC Dextrose/Sodium Chloride 1,000 ml @ 250 mls/hr Q4H IV ; Start 01/30/17 at 01:41 ; Stop 01/30/17 at 22:12; Status DC Insulin Human Regular 150 unit/ Sodium Chloride 151.5 ml @ 0 mls/hr CONT PRN PRN IV PER PROTOCOL Last administered on 01/30/17 02:08; Start 01/30/17 at 01:45 ; Stop 02/02/17 at 11:39; Status DC Potassium Chloride 100 ml @ 100 mls/hr PRN Q1HR PRN IV SEE COMMENTS Last administered on 01/30/17 10:48; Start 01/30/17 at 01:45; Stop 02/02/17 at 11:39; Status DC Potassium Chloride 100 ml @ 100 mls/hr PRN Q1HR PRN IV SEE COMMENTS; Start 01/30/17 at 01:45; Stop 02/02/17 at 11:39; Status DC Potassium Chloride 100 ml @ 100 mls/hr PRN Q1HR PRN IV SEE COMMENTS; Start 01/30/17 at 01:45; Stop 02/02/17 at 11:39; Status DC Insulin Human Regular 150 ml @ As Directed STK-MED ONCE IV ; Start 01/30/17 at 02:00; Stop 01/30/17 at 02:01; Status DC Amiodarone HCl 900 mg/Dextrose 518 ml @ 0 mls/hr CONT PRN IV SEE I/O RECORD Last administered on 01/30/17 02:24; Start 01/30/17 at 02:30; Stop 01/30/17 at 02: 30; Status DC Ondansetron HCl (Zofran) 4 mg PRN Q8HRS PRN IV NAUSEA/VOMITING Last administered on 01/30/17 20:58; Start 01/30/17 at 02:30; Stop 01/31/17 at 02:29; Status DC Metoprolol Tartrate (Lopressor) 5 mg STK-MED ONCE .ROUTE ; Start 01/30/17 at 03: 23; Stop 01/30/17 at 03:24; Status DC Metoprolol Tartrate (Lopressor) 5 mg 1X ONCE IVP Last administered on 03:25; Start 01/30/17 at 04:00; Stop 01/30/17 at 04:01; Status DC Sodium Chloride 1,000 ml @ 1,000 mls/hr 1X ONCE IV Last administered on 03:35; Start 01/30/17 at 04:30; Stop 01/30/17 at 05:29; Status DC Sodium Chloride 1,000 ml @ 1,000 mls/hr 1X ONCE IV Last administered on 03:40; Start 01/30/17 at 04:30; Stop 01/30/17 at 05:29; Status DC Sodium Chloride 400 ml @ 400 mls/hr 1X ONCE IV Last administered on 01/30/17 05:45; Start 01/30/17 at 05:30; Stop 01/30/17 at 06:29; Status DC Dextrose/Sodium Chloride 1,000 ml @ 250 mls/hr Q4H IV Last administered on 01/30 13:15; Start 01/30/17 at 09:15; Stop 01/30/17 at 22:12; Status DC Pantoprazole Sodium (Protonix) 40 mg DAILYAC PO Last administered on 02/02/17 09:08; Start 01/30/17 at 13:30 Calcium Carbonate/ Glycine (Tums) 500 mg PRN Q3HRS PRN PO INDIGESTION Last administered on 01/31/17 00:19; Start 01/30/17 at 13:00 Insulin Detemir (Levemir) 40 units 1X ONCE SQ Last administered on 01/30/17 16 :46; Start 01/30/17 at 14:00; Stop 01/30/17 at 15:43; Status DC Lidocaine HCl (Lidocaine HCl 2% Abboject) 100 mg STK-MED ONCE .ROUTE ; Start 01/30/17 at 16:41; Stop 01/30/17 at 16:42; Status DC Adenosine (Adenocard) 6 mg STK-MED ONCE IV ; Start 01/30/17 at 16:46; Stop at 16:47; Status DC Digoxin (Lanoxin) 500 mcg 1X ONCE IV Last administered on 01/30/17 16:54; Start 01/30/17 at 17:00; Stop 01/30/17 at 17:01; Status DC Heparin Sodium/ Dextrose 500 ml @ 0 mls/hr CONT PRN IV SEE I/O RECORD; Start at 17:00; Status Cancel Heparin Sodium (Porcine) (Heparin Sodium) 3,000 unit PRN Q6HRS PRN IV FOR UFH LEVEL LESS THAN 0.2; Start 01/30/17 at 17:00; Stop 02/01/17 at 16:44; Status DC Info (Anti-Coagulation Monitoring By Pharmacy) 1 each PRN DAILY PRN MC SEE COMMENTS Last administered on 02/02/17 13:25; Start 01/30/17 at 17:00 Metoprolol Tartrate (Lopressor) 50 mg BID PO ; Start 01/30/17 at 18:00; Stop 01/30 at 18:00; Status DC Insulin Aspart (NovoLOG) 0-9 UNITS TIDWMEALS SQ Last administered on 02/02/17 17:13; Start 01/30/17 at 17:41 Dextrose (Dextrose 50%-Water Syringe) 12.5 gm PRN Q15MIN PRN IV SEE COMMENTS; Start 01/30/17 at 17:45 Metoprolol Tartrate (Lopressor) 2.5 mg 1X ONCE IVP Last administered on 17:44; Start 01/30/17 at 17:45; Stop 01/30/17 at 17:46; Status DC Morphine Sulfate 2 mg PRN Q2HR PRN IV PAIN Last administered on 01/31/17 08:48 ; Start 01/30/17 at 18:00; Stop 01/31/17 at 12:51; Status DC Amiodarone HCl 450 mg/Dextrose 259 ml @ 17.26 mls/ hr CONT PRN IV SEE I/O RECORD Last administered on 01/31/17 03:41; Start 01/30/17 at 22:15; Stop at 10:11; Status DC Amiodarone HCl (Cordarone) 200 mg DAILY PO Last administered on 02/03/17 10:17 ; Start 01/31/17 at 10:30 Carvedilol (Coreg) 12.5 mg BIDWMEALS PO Last administered on 02/02/17 09:10; Start 01/31/17 at 11:30; Stop 02/02/17 at 09:40; Status DC Tramadol HCl (Ultram) 50 mg PRN Q6HRS PRN PO PAIN Last administered on 23:14; Start 01/31/17 at 13:00 Sacubitril/ Valsartan (Entresto 24 Mg-26 Mg) 1 tab BID PO Last administered on 02/02/17 09:09; Start 01/31/17 at 13:30; Stop 02/02/17 at 09:39; Status DC Oxycodone/ Acetaminophen (Percocet 7.5/ 325) 1 tab PRN Q6HRS PRN PO PAIN Last administered on 02/03/17 10:16; Start 01/31/17 at 13:15 Furosemide (Lasix) 40 mg DAILY PO Last administered on 02/02/17 09:10; Start at 14:00 Throat Lozenges (Chloraseptic) 1 spray PRN Q2HR PRN PO SORE THROAT Last administered on 02/03/17 10:14; Start 01/31/17 at 23:15 Enoxaparin Sodium (Lovenox Per Pharmacy Treatment Dosing) 1 each PRN DAILY PRN MC SEE COMMENTS; Start 02/01/17 at 16:30 Warfarin Sodium (Coumadin Per Pharmacy) 1 each PRN DAILY PRN MC SEE COMMENTS; Start 02/02/17 at 16:00; Stop 02/02/17 at 16:00; Status DC Enoxaparin Sodium (Lovenox 120mg Syringe) 120 mg Q12H SQ Last administered on 04:27; Start 02/01/17 at 17:00 Iohexol (Omnipaque 300 Mg/ml) 75 ml 1X ONCE IV ; Start 02/02/17 at 05:30; Stop 02/02/17 at 05:31; Status DC Info (Do NOT chart on this entry -- for MONITORING) 1 each PRN DAILY PRN MC SEE COMMENTS; Start 02/02/17 at 05:15; Stop 02/04/17 at 05:14 Atorvastatin Calcium (Lipitor) 20 mg HS PO Last administered on 02/02/17 21:38 ; Start 02/02/17 at 21:00 Carvedilol (Coreg) 6.25 mg BID PO Last administered on 02/03/17 10:18; Start at 10:00 Metformin HCl (Glucophage Xr) 500 mg BIDWMEALS PO ; Start 02/04/17 at 17:00 Sacubitril/ Valsartan (Entresto 24 Mg-26 Mg) 1 tab DAILY PO ; Start 02/02/17 at 10:00 Insulin Detemir (Levemir) 50 units QHS SQ Last administered on 02/02/17 21:42; Start 02/02/17 at 21:00 Iohexol (Omnipaque 300 Mg/ml) 75 ml 1X ONCE IV Last administered on 02/02/17 19:03; Start 02/02/17 at 14:30; Stop 02/02/17 at 14:31; Status DC Potassium Chloride (Klor-Con) 40 meq 1X ONCE PO Last administered on 02/03/17 10:20; Start 02/03/17 at 08:00; Stop 02/03/17 at 08:01; Status DC Potassium Chloride (Klor-Con) 40 meq 1X ONCE PO ; Start 02/03/17 at 12:00; Stop 02/03/17 at 12:01; Status DC Amiodarone HCl (Cordarone) 150 mg STK-MED ONCE .ROUTE ; Start 02/02/17 at 07:21; Stop 02/03/17 at 07:21; Status DC Iohexol (Omnipaque 300 Mg/ml) 100 ml STK-MED ONCE .ROUTE ; Start 02/03/17 at 10: 30; Stop 02/03/17 at 10:31; Status DC Lidocaine/Sodium Bicarbonate (Buffered Lidocaine 1%) 20 ml STK-MED ONCE IJ ; Start 02/03/17 at 10:31; Stop 02/03/17 at 10:32; Status DC Heparin Sodium/ Sodium Chloride 1,000 ml @ As Directed STK-MED ONCE .ROUTE ; Start 02/03/17 at 10:31; Stop 02/03/17 at 10:32; Status DC Active Scripts Active Reported Lipitor (Atorvastatin Calcium) 20 Mg Tablet 20 Mg PO HS Coreg (Carvedilol) 6.25 Mg Tablet 1 Tab PO BID Lantus Solostar (Insulin Glargine,Hum.rec.anlog) 100 Unit/1 Ml Insuln.pen 50 Unit SQ QHS Entresto 24 mg-26 mg Tablet (Sacubitril/Valsartan) 1 Each Tablet 1 Each PO DAILY Metformin Hcl Er (Metformin Hcl) 500 Mg Tab.er.24h 500 Mg PO BIDWMEALS Vitals/I & O Vital Sign - Last 24 Hours 02/02/17 02/02/17 02/02/17 02/02/17 16:00 17:08 20:04 20:08 Temp 97.8 98.0 97.8 98.0 Pulse 85 92 Resp 19 19 B/P (MAP) 102/71 (81) 97/56 (70) Pulse Ox 96 97 O2 Delivery Room Air Room Air Room Air Room Air 02/02/17 02/02/17 02/02/17 02/02/17 20:10 21:40 22:59 23:05 Temp 98.2 98.2 98.2 98.2 Pulse 92 83 83 Resp 18 18 B/P (MAP) 97/56 105/59 (74) 105/59 (74) Pulse Ox 96 96 O2 Delivery Room Air Room Air Room Air 02/03/17 02/03/17 02/03/17 02/03/17 03:27 04:27 05:35 07:15 Temp 98.2 97.9 98.2 97.9 Pulse 93 58 79 Resp 17 18 18 B/P (MAP) 143/75 (97) 169/78 (108) 125/68 (87) Pulse Ox 96 96 O2 Delivery Room Air Room Air Room Air Room Air 02/03/17 02/03/17 02/03/17 02/03/17 08:00 10:16 10:17 10:18 Pulse 88 88 B/P (MAP) 100/79 100/79 O2 Delivery Room Air Room Air 02/03/17 11:06 Temp 97.7 97.7 Pulse 88 Resp 18 B/P (MAP) 100/79 (86) Pulse Ox 97 O2 Delivery Room Air Intake and Output 02/03/17 02/03/17 02/04/17 15:00 23:00 07:00 Output Total 600 ml Balance -600 ml PAKO SALAZAR MD Feb 03, 2017 12:35
--- NOTE | 2017-02-03 13:10 | PDOC ---
Provider Note Provider Note Vascular F/U DVT rt arm Still swollen, needs to elevate Plan: For lysis later today CHARLES GARCIA MD Feb 03, 2017 13:10
[2017-02-03] MEDS ORDERED: MIDAZOLAM HCL/PF 5 MG/5 ML VIAL. ONE (14:16)
[2017-02-03] MEDS ORDERED: HEPARIN for IV BOLUS 10,000 UNIT/10 ML VIAL. ONE (14:16)
[2017-02-03] MEDS ORDERED: fentaNYL PF VIAL 250 MCG/5 ML VIAL ONE (14:17)
[2017-02-03] MEDS ORDERED: MIDAZOLAM HCL/PF 5 MG/5 ML VIAL. IV ONE (14:45)
[2017-02-03] MEDS ORDERED: IOHEXOL 300 MG/ML 100ML VIAL. IART ONE (14:45)
[2017-02-03] MEDS ORDERED: fentaNYL PF VIAL 250 MCG/5 ML VIAL IV ONE (14:45)
[2017-02-03] MEDS ORDERED: CONTRAST GIVEN MC PRN (15:00)
[2017-02-03] MEDS ORDERED: ALTEPLASE 10 MG in IV NORMAL SALINE 100ML 100 ML IV ONE (15:00)
[2017-02-03] MEDS: IV NORMAL SALINE 1000ML BAG 1,000 ML IV SCH (15:17)
[2017-02-03] MEDS ORDERED: HEPARIN for IV BOLUS 10,000 UNIT/10 ML VIAL. IV PRN ×2 (17:00)
[2017-02-03] MEDS: HEPARIN 25,000UTS/500ML PREMIX 500 ML IV PRN (18:42)
[2017-02-03] MEDS: ATORVASTATIN CALCIUM 20 MG TABLET PO SCH (20:42)
[2017-02-03] MEDS: INSULIN DETEMIR 300 UNITS/3 ML INSULN.PEN. SQ SCH (22:21)
[2017-02-04] VITALS (14 sets, daily range): BP systolic 72–151; BP diastolic 48–85
[2017-02-04] MEDS: IV NORMAL SALINE 1000ML BAG 1,000 ML IV SCH ×3 (04:07→22:36)
[2017-02-04] MEDS: HEPARIN 25,000UTS/500ML PREMIX 500 ML IV PRN (04:09)
[2017-02-04 05:31] LABS: BASO % 1 % (0-3); EOS % 2 % (0-3); HEMATOCRIT 40.4 % (39.0-53.0); HEMOGLOBIN 13.7 g/dL (13.0-17.5); LYMPH # 2.5 x10^3/uL (1.0-4.8); LYMPH % 32 % (24-48); MEAN CORPUSCULAR HEMOGLOBIN 29 pg (25-35); MEAN CORPUSCULAR HGB CONC 34 g/dL (31-37); MEAN CORPUSCULAR VOLUME 86 fL (79-100); MONO % 16 % (0-9); NEUT % 50 % (31-73); PLATELET COUNT 195 x10^3/uL (140-400); RED BLOOD COUNT 4.73 x10^6/uL (4.30-5.70); RED CELL DISTRIBUTION WIDTH 14.3 % (11.5-14.5)
[2017-02-04 05:58] LABS: CALCIUM 8.1 mg/dL (8.5-10.1); GFR 78.8; POTASSIUM 3.5 mmol/L (3.5-5.1)
--- NOTE | 2017-02-04 06:36 | PDOC ---
Provider Note Provider Note Vascular F/U S/P lysis and thrombectomy rt. UA DVT Feels fine Still some residual swelling Needs to elevate more, resume usual activities Oral anticoagulation for at least 3 mo. CHARLES GARCIA MD Feb 04, 2017 06:36
[2017-02-04 07:46] LABS: INR 1.2 (0.8-1.1); PROTHROMBIN TIME PATIENT 14.3 SEC (11.7-14.0)
--- NOTE | 2017-02-04 08:17 | RAD ---
02/04/2017 1. Right upper extremity venogram 2. Pharmacomechanical thrombolysis, right proximal brachial, axillary, and subclavian veins 3. Balloon venoplasty of focal area of narrowing involving medial right subclavian vein Discussion: The risks and benefits of the procedure were discussed with the patient. Informed consent was obtained. A timeout procedure was performed. The patient was placed in the supine position. The right upper extremity was prepped and draped using maximum sterile barrier technique. Ultrasound evaluation demonstrated partial thrombosis of the right brachial vein extending into a thrombosed right axillary vein, similar to prior study. The right brachial vein was accessed using ultrasound guidance and micropuncture technique. Ultrasound images were saved to the medical record. A 5 [place] vascular sheath was placed. A a Maldonado catheter and Glidewire were advanced centrally. Pulmonary venograms were performed demonstrating thrombosis of the right subclavian, axillary, and proximal brachial vein. Pharmacomechanical thrombolysis was then performed. An AngioJet device was used to deliver approximately 7 mg of TPA throughout the thrombosed segments. Following approximately 20 minute intubation time rheolytic was performed. Subsequent venograms demonstrated near total resolution of previously seen thrombus. Possible small amount residual thrombus or chronic narrowing was seen at the junction of right site. This appeared to be worse in abduction. This narrowing was subsequently treated with balloon dilatation initially with a 7 mm balloon, and subsequently with a 10 x 60 balloon. This resulted in significantly improved morphology and flow throughout the vein. Some increased narrowing at this site was noted on abduction venograms. By the end of the procedure the patient's right arm swelling had significantly decreased. He remained hemodynamically stable throughout the procedure. No immediate complications were identified. The procedure was performed under conscious sedation including continuous cardiopulmonary monitoring via dedicated sedation nurse Sedation time: 1 hour 45 minutes. Fluoroscopy time 16.6 minutes Dose area product: 164 Gycm2 Impression: 1. Successful pharmacal mechanical thrombolysis of the previously thrombosed right proximal brachial, axillary, subclavian veins 2. Successful treatment of a narrowing at the junction of the right subclavian vein and SVC balloon venoplasty. Some persistent narrowing is noted in the abduction. Finding can be associated with venous thoracic outlet syndrome.
--- NOTE | 2017-02-04 08:42 | PDOC ---
PROGRESS NOTES Chief Complaint Chief Complaint CC: AICD firing, DKA, resolved New DVT, extensive, R arm, unprovoked s/p thrombolysis (02/03/17) Cardiomyopathy post AICD, LVEF: 20% DM HTN PVD b/l fem-pop bypass History of Present Illness History of Present Illness s/p thrombolysis by IR 02/03 R arm less tight and swelling seems better Elevated withsome pillows HH ok VS ok ON heparin gtt started 5 PM yesterday INR 1,2 Will need OAC at least 3 mos per vasc sx PLAn: Heparin gtt to cont until 5 pM later today then resume warf per pharmacy goal INR 2-3 Warf x 3-6 mos MOnitor for anemia/bleeding Keep R arm elevated Ok to t.o ICU Dw [employer] Vitals Vitals Vital Signs Date Time Temp Pulse Resp B/P (MAP) Pulse Ox O2 Delivery O2 Flow Rate FiO2 02/04/17 08:00 Room Air 02/04/17 06:02 92 12 125/85 (98) 93 02/04/17 04:00 99.0 99.0 02/03/17 16:16 2.0 Physical Exam General: Alert, Cooperative, No acute distress, Other (fatigued) Heart: Normal S1, Normal S2, Other (heart rate slightly irregular) Lungs: Clear Abdomen: Soft, No tenderness Extremities: Other (edema and mild tenderness right upper extremity) Skin: No breakdown, No significant lesion Labs LABS Laboratory Tests Test 02/03/17 11:43 02/03/17 18:43 02/03/17 22:17 02/04/17 00:15 Glucose (Fingerstick) 171 mg/dL (70-99) 180 mg/dL (70-99) 163 mg/dL (70-99) Heparin Anti-Xa Act, Unfractionated 0.63 IU/mL (0.30-0.70) Potassium Level 3.8 mmol/L (3.5-5.1) Test 02/04/17 04:45 White Blood Count 8.0 x10^3/uL (4.0-11.0) Red Blood Count 4.73 x10^6/uL (4.30-5.70) Hemoglobin 13.7 g/dL (13.0-17.5) Hematocrit 40.4 % (39.0-53.0) Mean Corpuscular Volume 86 fL (79-100) Mean Corpuscular Hemoglobin 29 pg (25-35) Mean Corpuscular Hemoglobin Concent 34 g/dL (31-37) Red Cell Distribution Width 14.3 % (11.5-14.5) Platelet Count 195 x10^3/uL (140-400) Neutrophils (%) (Auto) 50 % (31-73) Lymphocytes (%) (Auto) 32 % (24-48) Monocytes (%) (Auto) 16 % (0-9) Eosinophils (%) (Auto) 2 % (0-3) Basophils (%) (Auto) 1 % (0-3) Neutrophils # (Auto) 4.0 x10^3uL (1.8-7.7) Lymphocytes # (Auto) 2.5 x10^3/uL (1.0-4.8) Monocytes # (Auto) 1.3 x10^3/uL (0.0-1.1) Eosinophils # (Auto) 0.2 x10^3/uL (0.0-0.7) Basophils # (Auto) 0.0 x10^3/uL (0.0-0.2) Prothrombin Time 14.3 SEC (11.7-14.0) Prothromb Time International Ratio 1.2 (0.8-1.1) Sodium Level 137 mmol/L (136-145) Potassium Level 3.5 mmol/L (3.5-5.1) Chloride Level 102 mmol/L (98-107) Carbon Dioxide Level 27 mmol/L (21-32) Anion Gap 8 (6-14) Blood Urea Nitrogen 17 mg/dL (8-26) Creatinine 1.0 mg/dL (0.7-1.3) Estimated GFR (Cockcroft-Gault) 78.8 Glucose Level 212 mg/dL (70-99) Calcium Level 8.1 mg/dL (8.5-10.1) Review of Systems Review of Systems R arm tolerable pain, all else is neg Assessment and Plan Assessmemt and Plan Problems Medical Problems: (1) DKA (diabetic ketoacidoses) Status: Acute Problems: Comment Review of Relevant I have reviewed the following items sebastian (where applicable) has been applied. Labs Laboratory Tests Test 02/02/17 10:30 02/02/17 16:31 02/02/17 20:43 02/03/17 04:20 Glucose (Fingerstick) 198 mg/dL (70-99) 170 mg/dL (70-99) 198 mg/dL (70-99) White Blood Count 8.6 x10^3/uL (4.0-11.0) Red Blood Count 4.73 x10^6/uL (4.30-5.70) Hemoglobin 13.6 g/dL (13.0-17.5) Hematocrit 40.7 % (39.0-53.0) Mean Corpuscular Volume 86 fL (79-100) Mean Corpuscular Hemoglobin 29 pg (25-35) Mean Corpuscular Hemoglobin Concent 34 g/dL (31-37) Red Cell Distribution Width 14.6 % (11.5-14.5) Platelet Count 160 x10^3/uL (140-400) Neutrophils (%) (Auto) 52 % (31-73) Lymphocytes (%) (Auto) 31 % (24-48) Monocytes (%) (Auto) 14 % (0-9) Eosinophils (%) (Auto) 2 % (0-3) Basophils (%) (Auto) 0 % (0-3) Neutrophils # (Auto) 4.5 x10^3uL (1.8-7.7) Lymphocytes # (Auto) 2.7 x10^3/uL (1.0-4.8) Monocytes # (Auto) 1.2 x10^3/uL (0.0-1.1) Eosinophils # (Auto) 0.2 x10^3/uL (0.0-0.7) Basophils # (Auto) 0.0 x10^3/uL (0.0-0.2) Prothrombin Time 14.1 SEC (11.7-14.0) Prothromb Time International Ratio 1.2 (0.8-1.1) Sodium Level 137 mmol/L (136-145) Potassium Level 2.9 mmol/L (3.5-5.1) Chloride Level 99 mmol/L (98-107) Carbon Dioxide Level 29 mmol/L (21-32) Anion Gap 9 (6-14) Blood Urea Nitrogen 18 mg/dL (8-26) Creatinine 1.0 mg/dL (0.7-1.3) Estimated GFR (Cockcroft-Gault) 78.8 Glucose Level 154 mg/dL (70-99) Calcium Level 8.6 mg/dL (8.5-10.1) Magnesium Level 2.0 mg/dL (1.8-2.4) Test 02/03/17 07:15 02/03/17 11:43 02/03/17 18:43 02/03/17 22:17 Glucose (Fingerstick) 111 mg/dL (70-99) 171 mg/dL (70-99) 180 mg/dL (70-99) 163 mg/dL (70-99) Test 02/04/17 00:15 02/04/17 04:45 Heparin Anti-Xa Act, Unfractionated 0.63 IU/mL (0.30-0.70) Potassium Level 3.8 mmol/L (3.5-5.1) 3.5 mmol/L (3.5-5.1) White Blood Count 8.0 x10^3/uL (4.0-11.0) Red Blood Count 4.73 x10^6/uL (4.30-5.70) Hemoglobin 13.7 g/dL (13.0-17.5) Hematocrit 40.4 % (39.0-53.0) Mean Corpuscular Volume 86 fL (79-100) Mean Corpuscular Hemoglobin 29 pg (25-35) Mean Corpuscular Hemoglobin Concent 34 g/dL (31-37) Red Cell Distribution Width 14.3 % (11.5-14.5) Platelet Count 195 x10^3/uL (140-400) Neutrophils (%) (Auto) 50 % (31-73) Lymphocytes (%) (Auto) 32 % (24-48) Monocytes (%) (Auto) 16 % (0-9) Eosinophils (%) (Auto) 2 % (0-3) Basophils (%) (Auto) 1 % (0-3) Neutrophils # (Auto) 4.0 x10^3uL (1.8-7.7) Lymphocytes # (Auto) 2.5 x10^3/uL (1.0-4.8) Monocytes # (Auto) 1.3 x10^3/uL (0.0-1.1) Eosinophils # (Auto) 0.2 x10^3/uL (0.0-0.7) Basophils # (Auto) 0.0 x10^3/uL (0.0-0.2) Prothrombin Time 14.3 SEC (11.7-14.0) Prothromb Time International Ratio 1.2 (0.8-1.1) Sodium Level 137 mmol/L (136-145) Chloride Level 102 mmol/L (98-107) Carbon Dioxide Level 27 mmol/L (21-32) Anion Gap 8 (6-14) Blood Urea Nitrogen 17 mg/dL (8-26) Creatinine 1.0 mg/dL (0.7-1.3) Estimated GFR (Cockcroft-Gault) 78.8 Glucose Level 212 mg/dL (70-99) Calcium Level 8.1 mg/dL (8.5-10.1) Laboratory Tests Test 02/03/17 11:43 02/03/17 18:43 02/03/17 22:17 02/04/17 00:15 Glucose (Fingerstick) 171 mg/dL (70-99) 180 mg/dL (70-99) 163 mg/dL (70-99) Heparin Anti-Xa Act, Unfractionated 0.63 IU/mL (0.30-0.70) Potassium Level 3.8 mmol/L (3.5-5.1) Test 02/04/17 04:45 White Blood Count 8.0 x10^3/uL (4.0-11.0) Red Blood Count 4.73 x10^6/uL (4.30-5.70) Hemoglobin 13.7 g/dL (13.0-17.5) Hematocrit 40.4 % (39.0-53.0) Mean Corpuscular Volume 86 fL (79-100) Mean Corpuscular Hemoglobin 29 pg (25-35) Mean Corpuscular Hemoglobin Concent 34 g/dL (31-37) Red Cell Distribution Width 14.3 % (11.5-14.5) Platelet Count 195 x10^3/uL (140-400) Neutrophils (%) (Auto) 50 % (31-73) Lymphocytes (%) (Auto) 32 % (24-48) Monocytes (%) (Auto) 16 % (0-9) Eosinophils (%) (Auto) 2 % (0-3) Basophils (%) (Auto) 1 % (0-3) Neutrophils # (Auto) 4.0 x10^3uL (1.8-7.7) Lymphocytes # (Auto) 2.5 x10^3/uL (1.0-4.8) Monocytes # (Auto) 1.3 x10^3/uL (0.0-1.1) Eosinophils # (Auto) 0.2 x10^3/uL (0.0-0.7) Basophils # (Auto) 0.0 x10^3/uL (0.0-0.2) Prothrombin Time 14.3 SEC (11.7-14.0) Prothromb Time International Ratio 1.2 (0.8-1.1) Sodium Level 137 mmol/L (136-145) Potassium Level 3.5 mmol/L (3.5-5.1) Chloride Level 102 mmol/L (98-107) Carbon Dioxide Level 27 mmol/L (21-32) Anion Gap 8 (6-14) Blood Urea Nitrogen 17 mg/dL (8-26) Creatinine 1.0 mg/dL (0.7-1.3) Estimated GFR (Cockcroft-Gault) 78.8 Glucose Level 212 mg/dL (70-99) Calcium Level 8.1 mg/dL (8.5-10.1) Microbiology 01/30/17 Blood Culture - Preliminary, Resulted NO GROWTH AFTER 4 DAYS Medications Current Medications Amiodarone HCl 150 mg/Dextrose 103 ml @ 400 mls/hr 1X ONCE IV Last administered on 01/30/17 00:27; Start 01/30/17 at 00:30; Stop 01/30/17 at 00:50; Status DC Sodium Chloride 1,000 ml @ 1,000 mls/hr 1X ONCE IV Last administered on 01:24; Start 01/30/17 at 01:30; Stop 01/30/17 at 02:29; Status DC Sodium Chloride 1,000 ml @ 1,000 mls/hr Q1H IV ; Start 01/30/17 at 01:38; Stop 01/30/17 at 02:37; Status DC Sodium Chloride 1,000 ml @ 500 mls/hr Q2H IV ; Start 01/30/17 at 01:39; Stop 01/30/17 at 03:38; Status DC Sodium Chloride 1,000 ml @ 250 mls/hr Q4H IV Last administered on 01/30/17 06: 25; Start 01/30/17 at 01:41; Stop 01/30/17 at 22:12; Status DC Sodium Chloride 1,000 ml @ 250 mls/hr Q4H IV ; Start 01/30/17 at 01:41; Stop 01/30/17 at 22:12; Status DC Dextrose/Sodium Chloride 1,000 ml @ 250 mls/hr Q4H IV ; Start 01/30/17 at 01:41 ; Stop 01/30/17 at 22:12; Status DC Insulin Human Regular 150 unit/ Sodium Chloride 151.5 ml @ 0 mls/hr CONT PRN PRN IV PER PROTOCOL Last administered on 01/30/17 02:08; Start 01/30/17 at 01:45 ; Stop 02/02/17 at 11:39; Status DC Potassium Chloride 100 ml @ 100 mls/hr PRN Q1HR PRN IV SEE COMMENTS Last administered on 01/30/17 10:48; Start 01/30/17 at 01:45; Stop 02/02/17 at 11:39; Status DC Potassium Chloride 100 ml @ 100 mls/hr PRN Q1HR PRN IV SEE COMMENTS; Start 01/30/17 at 01:45; Stop 02/02/17 at 11:39; Status DC Potassium Chloride 100 ml @ 100 mls/hr PRN Q1HR PRN IV SEE COMMENTS; Start 01/30/17 at 01:45; Stop 02/02/17 at 11:39; Status DC Insulin Human Regular 150 ml @ As Directed STK-MED ONCE IV ; Start 01/30/17 at 02:00; Stop 01/30/17 at 02:01; Status DC Amiodarone HCl 900 mg/Dextrose 518 ml @ 0 mls/hr CONT PRN IV SEE I/O RECORD Last administered on 01/30/17 02:24; Start 01/30/17 at 02:30; Stop 01/30/17 at 02: 30; Status DC Ondansetron HCl (Zofran) 4 mg PRN Q8HRS PRN IV NAUSEA/VOMITING Last administered on 01/30/17 20:58; Start 01/30/17 at 02:30; Stop 01/31/17 at 02:29; Status DC Metoprolol Tartrate (Lopressor) 5 mg STK-MED ONCE .ROUTE ; Start 01/30/17 at 03: 23; Stop 01/30/17 at 03:24; Status DC Metoprolol Tartrate (Lopressor) 5 mg 1X ONCE IVP Last administered on 03:25; Start 01/30/17 at 04:00; Stop 01/30/17 at 04:01; Status DC Sodium Chloride 1,000 ml @ 1,000 mls/hr 1X ONCE IV Last administered on 03:35; Start 01/30/17 at 04:30; Stop 01/30/17 at 05:29; Status DC Sodium Chloride 1,000 ml @ 1,000 mls/hr 1X ONCE IV Last administered on 03:40; Start 01/30/17 at 04:30; Stop 01/30/17 at 05:29; Status DC Sodium Chloride 400 ml @ 400 mls/hr 1X ONCE IV Last administered on 01/30/17 05:45; Start 01/30/17 at 05:30; Stop 01/30/17 at 06:29; Status DC Dextrose/Sodium Chloride 1,000 ml @ 250 mls/hr Q4H IV Last administered on 01/30 13:15; Start 01/30/17 at 09:15; Stop 01/30/17 at 22:12; Status DC Pantoprazole Sodium (Protonix) 40 mg DAILYAC PO Last administered on 02/02/17 09:08; Start 01/30/17 at 13:30 Calcium Carbonate/ Glycine (Tums) 500 mg PRN Q3HRS PRN PO INDIGESTION Last administered on 01/31/17 00:19; Start 01/30/17 at 13:00 Insulin Detemir (Levemir) 40 units 1X ONCE SQ Last administered on 01/30/17 16 :46; Start 01/30/17 at 14:00; Stop 01/30/17 at 15:43; Status DC Lidocaine HCl (Lidocaine HCl 2% Abboject) 100 mg STK-MED ONCE .ROUTE ; Start 01/30/17 at 16:41; Stop 01/30/17 at 16:42; Status DC Adenosine (Adenocard) 6 mg STK-MED ONCE IV ; Start 01/30/17 at 16:46; Stop at 16:47; Status DC Digoxin (Lanoxin) 500 mcg 1X ONCE IV Last administered on 01/30/17 16:54; Start 01/30/17 at 17:00; Stop 01/30/17 at 17:01; Status DC Heparin Sodium/ Dextrose 500 ml @ 0 mls/hr CONT PRN IV SEE I/O RECORD; Start at 17:00; Status Cancel Heparin Sodium (Porcine) (Heparin Sodium) 3,000 unit PRN Q6HRS PRN IV FOR UFH LEVEL LESS THAN 0.2; Start 01/30/17 at 17:00; Stop 02/01/17 at 16:44; Status DC Info (Anti-Coagulation Monitoring By Pharmacy) 1 each PRN DAILY PRN MC SEE COMMENTS Last administered on 02/02/17 13:25; Start 01/30/17 at 17:00 Metoprolol Tartrate (Lopressor) 50 mg BID PO ; Start 01/30/17 at 18:00; Stop 01/30 at 18:00; Status DC Insulin Aspart (NovoLOG) 0-9 UNITS TIDWMEALS SQ Last administered on 02/03/17 18:45; Start 01/30/17 at 17:41 Dextrose (Dextrose 50%-Water Syringe) 12.5 gm PRN Q15MIN PRN IV SEE COMMENTS; Start 01/30/17 at 17:45 Metoprolol Tartrate (Lopressor) 2.5 mg 1X ONCE IVP Last administered on 17:44; Start 01/30/17 at 17:45; Stop 01/30/17 at 17:46; Status DC Morphine Sulfate 2 mg PRN Q2HR PRN IV PAIN Last administered on 01/31/17 08:48 ; Start 01/30/17 at 18:00; Stop 01/31/17 at 12:51; Status DC Amiodarone HCl 450 mg/Dextrose 259 ml @ 17.26 mls/ hr CONT PRN IV SEE I/O RECORD Last administered on 01/31/17 03:41; Start 01/30/17 at 22:15; Stop at 10:11; Status DC Amiodarone HCl (Cordarone) 200 mg DAILY PO Last administered on 02/03/17 10:17 ; Start 01/31/17 at 10:30 Carvedilol (Coreg) 12.5 mg BIDWMEALS PO Last administered on 02/02/17 09:10; Start 01/31/17 at 11:30; Stop 02/02/17 at 09:40; Status DC Tramadol HCl (Ultram) 50 mg PRN Q6HRS PRN PO PAIN Last administered on 23:14; Start 01/31/17 at 13:00 Sacubitril/ Valsartan (Entresto 24 Mg-26 Mg) 1 tab BID PO Last administered on 02/02/17 09:09; Start 01/31/17 at 13:30; Stop 02/02/17 at 09:39; Status DC Oxycodone/ Acetaminophen (Percocet 7.5/ 325) 1 tab PRN Q6HRS PRN PO PAIN Last administered on 02/03/17 23:13; Start 01/31/17 at 13:15 Furosemide (Lasix) 40 mg DAILY PO Last administered on 02/02/17 09:10; Start at 14:00 Throat Lozenges (Chloraseptic) 1 spray PRN Q2HR PRN PO SORE THROAT Last administered on 02/03/17 20:48; Start 01/31/17 at 23:15 Enoxaparin Sodium (Lovenox Per Pharmacy Treatment Dosing) 1 each PRN DAILY PRN MC SEE COMMENTS; Start 02/01/17 at 16:30; Status Cancel Warfarin Sodium (Coumadin Per Pharmacy) 1 each PRN DAILY PRN MC SEE COMMENTS; Start 02/02/17 at 16:00; Stop 02/02/17 at 16:00; Status DC Enoxaparin Sodium (Lovenox 120mg Syringe) 120 mg Q12H SQ Last administered on 04:27; Start 02/01/17 at 17:00; Stop 02/03/17 at 16:59; Status DC Iohexol (Omnipaque 300 Mg/ml) 75 ml 1X ONCE IV ; Start 02/02/17 at 05:30; Stop 02/02/17 at 05:31; Status DC Info (Do NOT chart on this entry -- for MONITORING) 1 each PRN DAILY PRN MC SEE COMMENTS; Start 02/02/17 at 05:15; Stop 02/04/17 at 05:15; Status DC Atorvastatin Calcium (Lipitor) 20 mg HS PO Last administered on 02/03/17 20:42 ; Start 02/02/17 at 21:00 Carvedilol (Coreg) 6.25 mg BID PO Last administered on 02/03/17 20:43; Start at 10:00 Metformin HCl (Glucophage Xr) 500 mg BIDWMEALS PO ; Start 02/04/17 at 17:00; Stop 02/04/17 at 17:00; Status DC Sacubitril/ Valsartan (Entresto 24 Mg-26 Mg) 1 tab DAILY PO ; Start 02/02/17 at 10:00 Insulin Detemir (Levemir) 50 units QHS SQ Last administered on 02/03/17 22:21; Start 02/02/17 at 21:00 Iohexol (Omnipaque 300 Mg/ml) 75 ml 1X ONCE IV Last administered on 02/02/17 19:03; Start 02/02/17 at 14:30; Stop 02/02/17 at 14:31; Status DC Potassium Chloride (Klor-Con) 40 meq 1X ONCE PO Last administered on 02/03/17 10:20; Start 02/03/17 at 08:00; Stop 02/03/17 at 08:01; Status DC Potassium Chloride (Klor-Con) 40 meq 1X ONCE PO ; Start 02/03/17 at 12:00; Stop 02/03/17 at 12:01; Status DC Amiodarone HCl (Cordarone) 150 mg STK-MED ONCE .ROUTE ; Start 02/02/17 at 07:21; Stop 02/03/17 at 07:21; Status DC Iohexol (Omnipaque 300 Mg/ml) 100 ml STK-MED ONCE .ROUTE ; Start 02/03/17 at 10: 30; Stop 02/03/17 at 10:31; Status DC Lidocaine/Sodium Bicarbonate (Buffered Lidocaine 1%) 20 ml STK-MED ONCE IJ ; Start 02/03/17 at 10:31; Stop 02/03/17 at 10:32; Status DC Heparin Sodium/ Sodium Chloride 1,000 ml @ As Directed STK-MED ONCE .ROUTE ; Start 02/03/17 at 10:31; Stop 02/03/17 at 10:32; Status DC Heparin Sodium (Porcine) (Heparin Sodium) 10,000 unit STK-MED ONCE .ROUTE ; Start 02/03/17 at 14:16; Stop 02/03/17 at 14:18; Status DC Midazolam HCl (Versed) 5 mg STK-MED ONCE .ROUTE ; Start 02/03/17 at 14:16; Stop 02/03/17 at 14:18; Status DC Fentanyl Citrate (Fentanyl 5ml Vial) 250 mcg STK-MED ONCE .ROUTE ; Start at 14:17; Stop 02/03/17 at 14:18; Status DC Heparin Sodium/ Sodium Chloride 1,000 unit 1X ONCE IART Last administered on 16:06; Start 02/03/17 at 14:45; Stop 02/03/17 at 14:46; Status DC Lidocaine/Sodium Bicarbonate (Buffered Lidocaine 1%) 20 ml 1X ONCE IJ Last administered on 02/03/17 16:07; Start 02/03/17 at 14:45; Stop 02/03/17 at 14:46; Status DC Midazolam HCl (Versed) 5 mg 1X ONCE IV Last administered on 02/03/17 16:07; Start 02/03/17 at 14:45; Stop 02/03/17 at 14:46; Status DC Fentanyl Citrate (Fentanyl 5ml Vial) 250 mcg 1X ONCE IV Last administered on 16:07; Start 02/03/17 at 14:45; Stop 02/03/17 at 14:46; Status DC Iohexol (Omnipaque 300 Mg/ml) 100 ml 1X ONCE IART Last administered on 16:06; Start 02/03/17 at 14:45; Stop 02/03/17 at 14:46; Status DC Info (Do NOT chart on this entry -- for MONITORING) 1 each PRN DAILY PRN MC SEE COMMENTS; Start 02/03/17 at 15:00; Stop 02/05/17 at 14:59 Metformin HCl (Glucophage Xr) 500 mg BIDWMEALS PO ; Start 02/05/17 at 17:00 Alteplase, Recombinant 10 mg/ Sodium Chloride 100 ml @ 0 mls/hr 1X ONCE IV Last administered on 02/03/17 16:06; Start 02/03/17 at 15:00; Stop 02/03/17 at 15: 01; Status DC Sodium Chloride 1,000 ml @ 100 mls/hr Q10H IV Last administered on 02/04/17 04 :07; Start 02/03/17 at 15:30 Enoxaparin Sodium (Lovenox 120mg Syringe) 120 mg Q12H SQ ; Start 02/04/17 at 17: 00; Status UNV Heparin Sodium/ Dextrose 500 ml @ 0 mls/hr CONT PRN IV SEE I/O RECORD Last administered on 02/04/17 04:09; Start 02/03/17 at 17:00 Heparin Sodium (Porcine) (Heparin Sodium) 3,600 unit PRN Q6HRS PRN IV FOR UFH LEVEL LESS THAN 0.2; Start 02/03/17 at 17:00 Heparin Sodium (Porcine) (Heparin Sodium) 1,800 unit PRN Q6HRS PRN IV FOR UFH LEVEL 0.2 - 0.29; Start 02/03/17 at 17:00 Potassium Chloride (Klor-Con) 40 meq 1X ONCE PO Last administered on 02/03/17 20:42; Start 02/03/17 at 19:30; Stop 02/03/17 at 19:31; Status DC Warfarin Sodium (Coumadin Per Pharmacy) 1 each PRN DAILY PRN MC SEE COMMENTS; Start 02/04/17 at 08:00 Active Scripts Active Reported Lipitor (Atorvastatin Calcium) 20 Mg Tablet 20 Mg PO HS Coreg (Carvedilol) 6.25 Mg Tablet 1 Tab PO BID Lantus Solostar (Insulin Glargine,Hum.rec.anlog) 100 Unit/1 Ml Insuln.pen 50 Unit SQ QHS Entresto 24 mg-26 mg Tablet (Sacubitril/Valsartan) 1 Each Tablet 1 Each PO DAILY Metformin Hcl Er (Metformin Hcl) 500 Mg Tab.er.24h 500 Mg PO BIDWMEALS Vitals/I & O Vital Sign - Last 24 Hours 02/03/17 02/03/17 02/03/17 02/03/17 10:16 10:17 10:18 11:06 Temp 97.7 97.7 Pulse 88 88 88 Resp 18 B/P (MAP) 100/79 100/79 100/79 (86) Pulse Ox 97 O2 Delivery Room Air Room Air 02/03/17 02/03/17 02/03/17 02/03/17 16:07 16:16 16:30 16:30 Pulse 79 80 Resp 16 17 16 B/P (MAP) 160/90 (113) Pulse Ox 97 98 98 O2 Delivery Nasal Cannula Nasal Cannula Room Air Room Air O2 Flow Rate 2.0 2.0 02/03/17 02/03/17 02/03/17 02/03/17 16:45 16:50 17:00 17:30 Temp 98.1 98.1 Pulse 80 80 78 Resp 14 16 14 13 B/P (MAP) 178/103 (128) 180/106 (130) 173/112 (132) Pulse Ox 98 98 98 99 O2 Delivery Room Air Room Air Room Air Room Air 02/03/17 02/03/17 02/03/17 02/03/17 17:50 18:00 18:25 19:00 Pulse 80 84 81 Resp 16 11 20 15 B/P (MAP) 172/100 (124) 117/81 (93) 161/71 (101) Pulse Ox 97 95 97 O2 Delivery Room Air Room Air Room Air 02/03/17 02/03/17 02/03/17 02/03/17 20:00 20:00 20:43 21:00 Temp 99.1 99.1 Pulse 84 87 88 Resp 16 16 B/P (MAP) 154/90 (111) 151/88 156/87 (110) Pulse Ox 97 97 O2 Delivery Room Air Room Air Room Air 02/03/17 02/03/17 02/04/17 02/04/17 22:00 23:13 00:00 00:00 Temp 99.0 99.0 Pulse 86 84 Resp 16 15 B/P (MAP) 134/73 (93) 104/74 (84) Pulse Ox 95 95 92 O2 Delivery Room Air Room Air Room Air Room Air 02/04/17 02/04/17 02/04/17 02/04/17 00:13 01:00 02:00 03:00 Pulse 82 84 88 Resp 15 16 14 B/P (MAP) 94/68 (77) 151/77 (101) 112/71 (85) Pulse Ox 98 92 93 92 O2 Delivery Room Air Room Air Room Air Room Air 02/04/17 02/04/17 02/04/17 02/04/17 04:00 04:00 05:00 06:02 Temp 99.0 99.0 Pulse 90 86 92 Resp 14 12 12 B/P (MAP) 119/72 (88) 132/75 (94) 125/85 (98) Pulse Ox 92 92 93 O2 Delivery Room Air Room Air Room Air Room Air 02/04/17 08:00 O2 Delivery Room Air PAKO SALAZAR MD Feb 04, 2017 08:42
[2017-02-04] MEDS: FUROSEMIDE 40 MG TABLET. PO SCH (09:30)
[2017-02-04] MEDS: AMIODARONE HCL 200 MG TABLET. PO SCH (09:30)
[2017-02-04] MEDS: oxyCODONE/APAP 7.5/325 1 TAB TABLET PO PRN ×3 (09:31→20:39)
[2017-02-04] MEDS: CARVEDILOL 6.25 MG TABLET. PO SCH ×2 (09:31→20:39)
[2017-02-04] MEDS: ANTI-COAG MONITOR BY PHARMACY. MC PRN ×2 (09:31→09:41)
[2017-02-04] MEDS: SACUBITRIL/VALSARTAN 24/26MG TABLET. PO SCH (09:32)
[2017-02-04] MEDS: PANTOPRAZOLE 40 MG TABLET.DR. PO SCH (09:32)
[2017-02-04] MEDS: INSULIN ASPART 300 UNITS/3 ML INSULN.PEN SQ SCH ×3 (09:41→17:00)
--- NOTE | 2017-02-04 13:38 | PDOC ---
DEONTE LLANES CERTIFIED TECHNICIAN SPECIALIST 02/04/17 1338: CARDIO Progress Notes Date and Time Date of Service 02/04/2017 Time of Evaluation 1400 Subjective Subjective: No Chest Pain, No shortness of breath, No Palpitations, No Dizziness, Other (BP low and sitting up with no symptoms. ) Vitals Vitals Vital Signs Date Time Temp Pulse Resp B/P (MAP) Pulse Ox O2 Delivery O2 Flow Rate FiO2 02/04/17 12:17 16 95 Room Air 02/04/17 09:32 90 124/72 02/04/17 08:00 98.5 98.5 02/03/17 16:16 2.0 Weight Weight [ ] Input and Output Intake and Output Intake and Output 02/05/17 07:00 Intake Total 250 ml Balance 250 ml Intake Oral 250 ml Laboratory Labs Laboratory Tests Test 02/03/17 18:43 02/03/17 22:17 02/04/17 00:15 02/04/17 04:45 Glucose (Fingerstick) 180 mg/dL (70-99) 163 mg/dL (70-99) Heparin Anti-Xa Act, Unfractionated 0.63 IU/mL (0.30-0.70) Potassium Level 3.8 mmol/L (3.5-5.1) 3.5 mmol/L (3.5-5.1) White Blood Count 8.0 x10^3/uL (4.0-11.0) Red Blood Count 4.73 x10^6/uL (4.30-5.70) Hemoglobin 13.7 g/dL (13.0-17.5) Hematocrit 40.4 % (39.0-53.0) Mean Corpuscular Volume 86 fL (79-100) Mean Corpuscular Hemoglobin 29 pg (25-35) Mean Corpuscular Hemoglobin Concent 34 g/dL (31-37) Red Cell Distribution Width 14.3 % (11.5-14.5) Platelet Count 195 x10^3/uL (140-400) Neutrophils (%) (Auto) 50 % (31-73) Lymphocytes (%) (Auto) 32 % (24-48) Monocytes (%) (Auto) 16 % (0-9) Eosinophils (%) (Auto) 2 % (0-3) Basophils (%) (Auto) 1 % (0-3) Neutrophils # (Auto) 4.0 x10^3uL (1.8-7.7) Lymphocytes # (Auto) 2.5 x10^3/uL (1.0-4.8) Monocytes # (Auto) 1.3 x10^3/uL (0.0-1.1) Eosinophils # (Auto) 0.2 x10^3/uL (0.0-0.7) Basophils # (Auto) 0.0 x10^3/uL (0.0-0.2) Prothrombin Time 14.3 SEC (11.7-14.0) Prothromb Time International Ratio 1.2 (0.8-1.1) Sodium Level 137 mmol/L (136-145) Chloride Level 102 mmol/L (98-107) Carbon Dioxide Level 27 mmol/L (21-32) Anion Gap 8 (6-14) Blood Urea Nitrogen 17 mg/dL (8-26) Creatinine 1.0 mg/dL (0.7-1.3) Estimated GFR (Cockcroft-Gault) 78.8 Glucose Level 212 mg/dL (70-99) Calcium Level 8.1 mg/dL (8.5-10.1) Test 02/04/17 08:48 02/04/17 12:18 Heparin Anti-Xa Act, Unfractionated 0.79 IU/mL (0.30-0.70) Glucose (Fingerstick) 256 mg/dL (70-99) Microbiology Micro Microbiology 01/30/17 Blood Culture - Final, Complete NO GROWTH AFTER 5 DAYS Physical Exam HEENT: Neck Supple W Full Motion Chest: Symmetric LUNGS: Clear to Auscultation Heart: S1S2, RRR (BiV pacing, no significant ectopies overnight) Abdomen: Soft N/T Extremities: No Calf Tenderness, Other (RUE swelling) Neurology: alert, oriented, follow commands Assessment Assessment 1. NSTEMI: peak 1.097 , demand mediated with underlying DKA, multiple shock therapy, MIKAL. 2. AICD: Normal device functioning with noted multiple device treatment delivery due to AFIB-RVR. No ventricular arrhythmias. 3. Chronic systolic heart failure with ICM s/p ICD; LVEF 20%. Compensated. 4. CAD s/p PCI/stents:1-2 yrs ago. Stable. 5. Hypertension: presently hypotensive, likely inaccurate (only NIBP cuff to LFA), asymptomatic and neurovascular status are intact to all extremities 6. DM2 7. Acute DVT right UE: s/p thrombolysis/thrombectomy 8. PAFIB: SR/BiV paced Recommendations 1. Continue present regimen including entresto 2. Warfarin has been restarted bridged with heparin, managed by PCP/vascular, goal INR 2-3 3. Limited po intake overnight with recent vascular procedure being NPO. IVF bolus ongoing. Will place pt in supine. 4. Maintain K and Mg close to 4.0 and 2.0 respectively 5. Follow up with [facility]ology when DC in 2-3 weeks 6. Resume lasix and BP meds when BP is more adequate. 7. Will consider vasopressor if BP remains low after adjustment as noted. CRISTIAN LOPEZ MD 02/04/17 1636: CARDIO Progress Notes Assessment Assessment Patient seen and examined. Agree with [employer]'s assessment and plan. s/p thrombolysis/thrombectomy right approximately DVT by vascular surgery team Continue to adjust warfarin dose to keep INR 2-3 Maintaining sinus rhythm. Continue amiodarone. CAD status clinically stable. DEONTE LLANES APRN Feb 04, 2017 13:38 CRISTIAN LOPEZ MD Feb 04, 2017 16:36
[2017-02-04] MEDS ORDERED: POTASSIUM CHLORIDE 20 MEQ TABLET.ER. PO ONE (14:00)
[2017-02-04] MEDS ORDERED: LIDO:MAALOX:DONNATAL 1:1:1 15 ML SINGLE DOSE SWSW PRN (15:45)
[2017-02-04] MEDS ORDERED: MAG HYDROX/ALUMINUM HYD/SIMETH 30 ML ORAL.SUSP PO PRN (15:45)
[2017-02-04] MEDS ORDERED: WARFARIN 7.5 MG TABLET. PO ONE (16:00)
[2017-02-04] MEDS ORDERED: metFORMIN XR 500 MG TAB.ER.24H PO SCH (17:00)
[2017-02-04] MEDS: ATORVASTATIN CALCIUM 20 MG TABLET PO SCH (20:39)
[2017-02-04] MEDS: INSULIN DETEMIR 300 UNITS/3 ML INSULN.PEN. SQ SCH (20:40)
[2017-02-05] VITALS (14 sets, daily range): BP systolic 80–153; BP diastolic 55–79
[2017-02-05] MEDS: PHENOL ORAL SPRAY 177ML BOTTLE. PO PRN (00:19)
[2017-02-05] MEDS: oxyCODONE/APAP 7.5/325 1 TAB TABLET PO PRN ×3 (04:55→20:24)
[2017-02-05 05:27] LABS: BASO % 0 % (0-3); EOS % 2 % (0-3); HEMATOCRIT 39.3 % (39.0-53.0); HEMOGLOBIN 13.1 g/dL (13.0-17.5); LYMPH # 2.5 x10^3/uL (1.0-4.8); LYMPH % 36 % (24-48); MEAN CORPUSCULAR HEMOGLOBIN 28 pg (25-35); MEAN CORPUSCULAR HGB CONC 33 g/dL (31-37); MEAN CORPUSCULAR VOLUME 85 fL (79-100); MONO % 17 % (0-9); NEUT % 45 % (31-73); PLATELET COUNT 192 x10^3/uL (140-400); RED BLOOD COUNT 4.63 x10^6/uL (4.30-5.70); RED CELL DISTRIBUTION WIDTH 13.9 % (11.5-14.5); WHITE BLOOD COUNT 6.8 x10^3/uL (4.0-11.0)
[2017-02-05 05:32] LABS: INR 1.1 (0.8-1.1); PROTHROMBIN TIME PATIENT 13.2 SEC (11.7-14.0)
[2017-02-05 05:44] LABS: CALCIUM 8.3 mg/dL (8.5-10.1); CREATININE 0.8 mg/dL (0.7-1.3); GFR 101.9; POTASSIUM 3.7 mmol/L (3.5-5.1)
[2017-02-05] MEDS: IV NORMAL SALINE 1000ML BAG 1,000 ML IV SCH ×2 (08:18→17:30)
[2017-02-05] MEDS: PANTOPRAZOLE 40 MG TABLET.DR. PO SCH (08:18)
[2017-02-05] MEDS: CARVEDILOL 6.25 MG TABLET. PO SCH (09:00)
[2017-02-05] MEDS: SACUBITRIL/VALSARTAN 24/26MG TABLET. PO SCH (09:00)
[2017-02-05] MEDS: FUROSEMIDE 40 MG TABLET. PO SCH (09:00)
[2017-02-05] MEDS: AMIODARONE HCL 200 MG TABLET. PO SCH (09:53)
[2017-02-05] MEDS: POTASSIUM CHLORIDE 10 MEQ TABLET.ER. PO SCH (09:53)
[2017-02-05] MEDS: INSULIN ASPART 300 UNITS/3 ML INSULN.PEN SQ SCH ×3 (09:55→17:48)
--- NOTE | 2017-02-05 11:11 | PDOC ---
PROGRESS NOTES Chief Complaint Chief Complaint CC: AICD firing, DKA, resolved New DVT, extensive, R arm, unprovoked s/p thrombolysis (02/03/17) Cardiomyopathy post AICD, LVEF: 20% DM HTN NOW HYPOTENSION PVD b/l fem-pop bypass History of Present Illness History of Present Illness s/p thrombolysis by IR 02/03 needs warf x 3-6 mos per vasc HYPOTENSION started yesterday after AM BP meds given Resolved with [place] and iVF INR today 1.1, on warf per pharmacy PLAn: Would not give lasix 40 and other antihypertensives if systolic is < 120 Dw [employer] OK to t.o ICU NEeds OAC x 3-6 mos Can only afford daniel Vitals Vitals Vital Signs Date Time Temp Pulse Resp B/P (MAP) Pulse Ox O2 Delivery O2 Flow Rate FiO2 02/05/17 09:53 85 105/73 02/05/17 08:00 Room Air 02/05/17 06:00 16 92 02/05/17 04:00 99.6 99.6 Physical Exam General: Alert, Cooperative, No acute distress, Other (fatigued) Heart: Normal S1, Normal S2, Other (heart rate slightly irregular) Lungs: Clear Abdomen: Soft, No tenderness Extremities: Other (edema and mild tenderness right upper extremity) Skin: No breakdown, No significant lesion Labs LABS Laboratory Tests Test 02/04/17 12:18 02/04/17 17:03 02/04/17 20:37 02/05/17 04:40 Glucose (Fingerstick) 256 mg/dL (70-99) 122 mg/dL (70-99) 173 mg/dL (70-99) White Blood Count 6.8 x10^3/uL (4.0-11.0) Red Blood Count 4.63 x10^6/uL (4.30-5.70) Hemoglobin 13.1 g/dL (13.0-17.5) Hematocrit 39.3 % (39.0-53.0) Mean Corpuscular Volume 85 fL (79-100) Mean Corpuscular Hemoglobin 28 pg (25-35) Mean Corpuscular Hemoglobin Concent 33 g/dL (31-37) Red Cell Distribution Width 13.9 % (11.5-14.5) Platelet Count 192 x10^3/uL (140-400) Neutrophils (%) (Auto) 45 % (31-73) Lymphocytes (%) (Auto) 36 % (24-48) Monocytes (%) (Auto) 17 % (0-9) Eosinophils (%) (Auto) 2 % (0-3) Basophils (%) (Auto) 0 % (0-3) Neutrophils # (Auto) 3.0 x10^3uL (1.8-7.7) Lymphocytes # (Auto) 2.5 x10^3/uL (1.0-4.8) Monocytes # (Auto) 1.1 x10^3/uL (0.0-1.1) Eosinophils # (Auto) 0.1 x10^3/uL (0.0-0.7) Basophils # (Auto) 0.0 x10^3/uL (0.0-0.2) Prothrombin Time 13.2 SEC (11.7-14.0) Prothromb Time International Ratio 1.1 (0.8-1.1) Sodium Level 138 mmol/L (136-145) Potassium Level 3.7 mmol/L (3.5-5.1) Chloride Level 104 mmol/L (98-107) Carbon Dioxide Level 28 mmol/L (21-32) Anion Gap 6 (6-14) Blood Urea Nitrogen 9 mg/dL (8-26) Creatinine 0.8 mg/dL (0.7-1.3) Estimated GFR (Cockcroft-Gault) 101.9 Glucose Level 179 mg/dL (70-99) Calcium Level 8.3 mg/dL (8.5-10.1) Test 02/05/17 08:23 Glucose (Fingerstick) 155 mg/dL (70-99) Review of Systems Review of Systems denies pain, all else 14 pt reviewed neg Assessment and Plan Assessmemt and Plan Problems Medical Problems: (1) DKA (diabetic ketoacidoses) Status: Acute Problems: Comment Review of Relevant I have reviewed the following items sebastian (where applicable) has been applied. Labs Laboratory Tests Test 02/03/17 11:43 02/03/17 16:30 02/03/17 18:43 02/03/17 22:17 Glucose (Fingerstick) 171 mg/dL (70-99) 180 mg/dL (70-99) 163 mg/dL (70-99) Nasal Screen MRSA (PCR) Negative (Negative) Test 02/04/17 00:15 02/04/17 04:45 02/04/17 08:48 02/04/17 12:18 Heparin Anti-Xa Act, Unfractionated 0.63 IU/mL (0.30-0.70) 0.79 IU/mL (0.30-0.70) Potassium Level 3.8 mmol/L (3.5-5.1) 3.5 mmol/L (3.5-5.1) White Blood Count 8.0 x10^3/uL (4.0-11.0) Red Blood Count 4.73 x10^6/uL (4.30-5.70) Hemoglobin 13.7 g/dL (13.0-17.5) Hematocrit 40.4 % (39.0-53.0) Mean Corpuscular Volume 86 fL (79-100) Mean Corpuscular Hemoglobin 29 pg (25-35) Mean Corpuscular Hemoglobin Concent 34 g/dL (31-37) Red Cell Distribution Width 14.3 % (11.5-14.5) Platelet Count 195 x10^3/uL (140-400) Neutrophils (%) (Auto) 50 % (31-73) Lymphocytes (%) (Auto) 32 % (24-48) Monocytes (%) (Auto) 16 % (0-9) Eosinophils (%) (Auto) 2 % (0-3) Basophils (%) (Auto) 1 % (0-3) Neutrophils # (Auto) 4.0 x10^3uL (1.8-7.7) Lymphocytes # (Auto) 2.5 x10^3/uL (1.0-4.8) Monocytes # (Auto) 1.3 x10^3/uL (0.0-1.1) Eosinophils # (Auto) 0.2 x10^3/uL (0.0-0.7) Basophils # (Auto) 0.0 x10^3/uL (0.0-0.2) Prothrombin Time 14.3 SEC (11.7-14.0) Prothromb Time International Ratio 1.2 (0.8-1.1) Sodium Level 137 mmol/L (136-145) Chloride Level 102 mmol/L (98-107) Carbon Dioxide Level 27 mmol/L (21-32) Anion Gap 8 (6-14) Blood Urea Nitrogen 17 mg/dL (8-26) Creatinine 1.0 mg/dL (0.7-1.3) Estimated GFR (Cockcroft-Gault) 78.8 Glucose Level 212 mg/dL (70-99) Calcium Level 8.1 mg/dL (8.5-10.1) Magnesium Level 1.8 mg/dL (1.8-2.4) Glucose (Fingerstick) 256 mg/dL (70-99) Test 02/04/17 17:03 02/04/17 20:37 02/05/17 04:40 02/05/17 08:23 Glucose (Fingerstick) 122 mg/dL (70-99) 173 mg/dL (70-99) 155 mg/dL (70-99) White Blood Count 6.8 x10^3/uL (4.0-11.0) Red Blood Count 4.63 x10^6/uL (4.30-5.70) Hemoglobin 13.1 g/dL (13.0-17.5) Hematocrit 39.3 % (39.0-53.0) Mean Corpuscular Volume 85 fL (79-100) Mean Corpuscular Hemoglobin 28 pg (25-35) Mean Corpuscular Hemoglobin Concent 33 g/dL (31-37) Red Cell Distribution Width 13.9 % (11.5-14.5) Platelet Count 192 x10^3/uL (140-400) Neutrophils (%) (Auto) 45 % (31-73) Lymphocytes (%) (Auto) 36 % (24-48) Monocytes (%) (Auto) 17 % (0-9) Eosinophils (%) (Auto) 2 % (0-3) Basophils (%) (Auto) 0 % (0-3) Neutrophils # (Auto) 3.0 x10^3uL (1.8-7.7) Lymphocytes # (Auto) 2.5 x10^3/uL (1.0-4.8) Monocytes # (Auto) 1.1 x10^3/uL (0.0-1.1) Eosinophils # (Auto) 0.1 x10^3/uL (0.0-0.7) Basophils # (Auto) 0.0 x10^3/uL (0.0-0.2) Prothrombin Time 13.2 SEC (11.7-14.0) Prothromb Time International Ratio 1.1 (0.8-1.1) Sodium Level 138 mmol/L (136-145) Potassium Level 3.7 mmol/L (3.5-5.1) Chloride Level 104 mmol/L (98-107) Carbon Dioxide Level 28 mmol/L (21-32) Anion Gap 6 (6-14) Blood Urea Nitrogen 9 mg/dL (8-26) Creatinine 0.8 mg/dL (0.7-1.3) Estimated GFR (Cockcroft-Gault) 101.9 Glucose Level 179 mg/dL (70-99) Calcium Level 8.3 mg/dL (8.5-10.1) Laboratory Tests Test 02/04/17 12:18 02/04/17 17:03 02/04/17 20:37 02/05/17 04:40 Glucose (Fingerstick) 256 mg/dL (70-99) 122 mg/dL (70-99) 173 mg/dL (70-99) White Blood Count 6.8 x10^3/uL (4.0-11.0) Red Blood Count 4.63 x10^6/uL (4.30-5.70) Hemoglobin 13.1 g/dL (13.0-17.5) Hematocrit 39.3 % (39.0-53.0) Mean Corpuscular Volume 85 fL (79-100) Mean Corpuscular Hemoglobin 28 pg (25-35) Mean Corpuscular Hemoglobin Concent 33 g/dL (31-37) Red Cell Distribution Width 13.9 % (11.5-14.5) Platelet Count 192 x10^3/uL (140-400) Neutrophils (%) (Auto) 45 % (31-73) Lymphocytes (%) (Auto) 36 % (24-48) Monocytes (%) (Auto) 17 % (0-9) Eosinophils (%) (Auto) 2 % (0-3) Basophils (%) (Auto) 0 % (0-3) Neutrophils # (Auto) 3.0 x10^3uL (1.8-7.7) Lymphocytes # (Auto) 2.5 x10^3/uL (1.0-4.8) Monocytes # (Auto) 1.1 x10^3/uL (0.0-1.1) Eosinophils # (Auto) 0.1 x10^3/uL (0.0-0.7) Basophils # (Auto) 0.0 x10^3/uL (0.0-0.2) Prothrombin Time 13.2 SEC (11.7-14.0) Prothromb Time International Ratio 1.1 (0.8-1.1) Sodium Level 138 mmol/L (136-145) Potassium Level 3.7 mmol/L (3.5-5.1) Chloride Level 104 mmol/L (98-107) Carbon Dioxide Level 28 mmol/L (21-32) Anion Gap 6 (6-14) Blood Urea Nitrogen 9 mg/dL (8-26) Creatinine 0.8 mg/dL (0.7-1.3) Estimated GFR (Cockcroft-Gault) 101.9 Glucose Level 179 mg/dL (70-99) Calcium Level 8.3 mg/dL (8.5-10.1) Test 02/05/17 08:23 Glucose (Fingerstick) 155 mg/dL (70-99) Microbiology 01/30/17 Blood Culture - Final, Complete NO GROWTH AFTER 5 DAYS Medications Current Medications Amiodarone HCl 150 mg/Dextrose 103 ml @ 400 mls/hr 1X ONCE IV Last administered on 01/30/17 00:27; Start 01/30/17 at 00:30; Stop 01/30/17 at 00:50; Status DC Sodium Chloride 1,000 ml @ 1,000 mls/hr 1X ONCE IV Last administered on 01:24; Start 01/30/17 at 01:30; Stop 01/30/17 at 02:29; Status DC Sodium Chloride 1,000 ml @ 1,000 mls/hr Q1H IV ; Start 01/30/17 at 01:38; Stop 01/30/17 at 02:37; Status DC Sodium Chloride 1,000 ml @ 500 mls/hr Q2H IV ; Start 01/30/17 at 01:39; Stop 01/30/17 at 03:38; Status DC Sodium Chloride 1,000 ml @ 250 mls/hr Q4H IV Last administered on 01/30/17 06: 25; Start 01/30/17 at 01:41; Stop 01/30/17 at 22:12; Status DC Sodium Chloride 1,000 ml @ 250 mls/hr Q4H IV ; Start 01/30/17 at 01:41; Stop 01/30/17 at 22:12; Status DC Dextrose/Sodium Chloride 1,000 ml @ 250 mls/hr Q4H IV ; Start 01/30/17 at 01:41 ; Stop 01/30/17 at 22:12; Status DC Insulin Human Regular 150 unit/ Sodium Chloride 151.5 ml @ 0 mls/hr CONT PRN PRN IV PER PROTOCOL Last administered on 01/30/17 02:08; Start 01/30/17 at 01:45 ; Stop 02/02/17 at 11:39; Status DC Potassium Chloride 100 ml @ 100 mls/hr PRN Q1HR PRN IV SEE COMMENTS Last administered on 01/30/17 10:48; Start 01/30/17 at 01:45; Stop 02/02/17 at 11:39; Status DC Potassium Chloride 100 ml @ 100 mls/hr PRN Q1HR PRN IV SEE COMMENTS; Start 01/30/17 at 01:45; Stop 02/02/17 at 11:39; Status DC Potassium Chloride 100 ml @ 100 mls/hr PRN Q1HR PRN IV SEE COMMENTS; Start 01/30/17 at 01:45; Stop 02/02/17 at 11:39; Status DC Insulin Human Regular 150 ml @ As Directed STK-MED ONCE IV ; Start 01/30/17 at 02:00; Stop 01/30/17 at 02:01; Status DC Amiodarone HCl 900 mg/Dextrose 518 ml @ 0 mls/hr CONT PRN IV SEE I/O RECORD Last administered on 01/30/17 02:24; Start 01/30/17 at 02:30; Stop 01/30/17 at 02: 30; Status DC Ondansetron HCl (Zofran) 4 mg PRN Q8HRS PRN IV NAUSEA/VOMITING Last administered on 01/30/17 20:58; Start 01/30/17 at 02:30; Stop 01/31/17 at 02:29; Status DC Metoprolol Tartrate (Lopressor) 5 mg STK-MED ONCE .ROUTE ; Start 01/30/17 at 03: 23; Stop 01/30/17 at 03:24; Status DC Metoprolol Tartrate (Lopressor) 5 mg 1X ONCE IVP Last administered on 03:25; Start 01/30/17 at 04:00; Stop 01/30/17 at 04:01; Status DC Sodium Chloride 1,000 ml @ 1,000 mls/hr 1X ONCE IV Last administered on 03:35; Start 01/30/17 at 04:30; Stop 01/30/17 at 05:29; Status DC Sodium Chloride 1,000 ml @ 1,000 mls/hr 1X ONCE IV Last administered on 03:40; Start 01/30/17 at 04:30; Stop 01/30/17 at 05:29; Status DC Sodium Chloride 400 ml @ 400 mls/hr 1X ONCE IV Last administered on 01/30/17 05:45; Start 01/30/17 at 05:30; Stop 01/30/17 at 06:29; Status DC Dextrose/Sodium Chloride 1,000 ml @ 250 mls/hr Q4H IV Last administered on 01/30 13:15; Start 01/30/17 at 09:15; Stop 01/30/17 at 22:12; Status DC Pantoprazole Sodium (Protonix) 40 mg DAILYAC PO Last administered on 02/05/17 08:18; Start 01/30/17 at 13:30 Calcium Carbonate/ Glycine (Tums) 500 mg PRN Q3HRS PRN PO INDIGESTION Last administered on 01/31/17 00:19; Start 01/30/17 at 13:00 Insulin Detemir (Levemir) 40 units 1X ONCE SQ Last administered on 01/30/17 16 :46; Start 01/30/17 at 14:00; Stop 01/30/17 at 15:43; Status DC Lidocaine HCl (Lidocaine HCl 2% Abboject) 100 mg STK-MED ONCE .ROUTE ; Start 01/30/17 at 16:41; Stop 01/30/17 at 16:42; Status DC Adenosine (Adenocard) 6 mg STK-MED ONCE IV ; Start 01/30/17 at 16:46; Stop at 16:47; Status DC Digoxin (Lanoxin) 500 mcg 1X ONCE IV Last administered on 01/30/17 16:54; Start 01/30/17 at 17:00; Stop 01/30/17 at 17:01; Status DC Heparin Sodium/ Dextrose 500 ml @ 0 mls/hr CONT PRN IV SEE I/O RECORD; Start at 17:00; Status Cancel Heparin Sodium (Porcine) (Heparin Sodium) 3,000 unit PRN Q6HRS PRN IV FOR UFH LEVEL LESS THAN 0.2; Start 01/30/17 at 17:00; Stop 02/01/17 at 16:44; Status DC Info (Anti-Coagulation Monitoring By Pharmacy) 1 each PRN DAILY PRN MC SEE COMMENTS Last administered on 02/04/17 09:41; Start 01/30/17 at 17:00 Metoprolol Tartrate (Lopressor) 50 mg BID PO ; Start 01/30/17 at 18:00; Stop 01/30 at 18:00; Status DC Insulin Aspart (NovoLOG) 0-9 UNITS TIDWMEALS SQ Last administered on 02/05/17 09:55; Start 01/30/17 at 17:41 Dextrose (Dextrose 50%-Water Syringe) 12.5 gm PRN Q15MIN PRN IV SEE COMMENTS; Start 01/30/17 at 17:45 Metoprolol Tartrate (Lopressor) 2.5 mg 1X ONCE IVP Last administered on 17:44; Start 01/30/17 at 17:45; Stop 01/30/17 at 17:46; Status DC Morphine Sulfate 2 mg PRN Q2HR PRN IV PAIN Last administered on 01/31/17 08:48 ; Start 01/30/17 at 18:00; Stop 01/31/17 at 12:51; Status DC Amiodarone HCl 450 mg/Dextrose 259 ml @ 17.26 mls/ hr CONT PRN IV SEE I/O RECORD Last administered on 01/31/17 03:41; Start 01/30/17 at 22:15; Stop at 10:11; Status DC Amiodarone HCl (Cordarone) 200 mg DAILY PO Last administered on 02/05/17 09:53 ; Start 01/31/17 at 10:30 Carvedilol (Coreg) 12.5 mg BIDWMEALS PO Last administered on 02/02/17 09:10; Start 01/31/17 at 11:30; Stop 02/02/17 at 09:40; Status DC Tramadol HCl (Ultram) 50 mg PRN Q6HRS PRN PO PAIN Last administered on 23:14; Start 01/31/17 at 13:00 Sacubitril/ Valsartan (Entresto 24 Mg-26 Mg) 1 tab BID PO Last administered on 02/02/17 09:09; Start 01/31/17 at 13:30; Stop 02/02/17 at 09:39; Status DC Oxycodone/ Acetaminophen (Percocet 7.5/ 325) 1 tab PRN Q6HRS PRN PO PAIN Last administered on 02/05/17 04:55; Start 01/31/17 at 13:15 Furosemide (Lasix) 40 mg DAILY PO Last administered on 02/04/17 09:30; Start at 14:00 Throat Lozenges (Chloraseptic) 1 spray PRN Q2HR PRN PO SORE THROAT Last administered on 02/05/17 00:19; Start 01/31/17 at 23:15 Enoxaparin Sodium (Lovenox Per Pharmacy Treatment Dosing) 1 each PRN DAILY PRN MC SEE COMMENTS; Start 02/01/17 at 16:30; Status Cancel Warfarin Sodium (Coumadin Per Pharmacy) 1 each PRN DAILY PRN MC SEE COMMENTS; Start 02/02/17 at 16:00; Stop 02/02/17 at 16:00; Status DC Enoxaparin Sodium (Lovenox 120mg Syringe) 120 mg Q12H SQ Last administered on 04:27; Start 02/01/17 at 17:00; Stop 02/03/17 at 16:59; Status DC Iohexol (Omnipaque 300 Mg/ml) 75 ml 1X ONCE IV ; Start 02/02/17 at 05:30; Stop 02/02/17 at 05:31; Status DC Info (Do NOT chart on this entry -- for MONITORING) 1 each PRN DAILY PRN MC SEE COMMENTS; Start 02/02/17 at 05:15; Stop 02/04/17 at 05:15; Status DC Atorvastatin Calcium (Lipitor) 20 mg HS PO Last administered on 02/04/17 20:39 ; Start 02/02/17 at 21:00 Carvedilol (Coreg) 6.25 mg BID PO Last administered on 02/04/17 20:39; Start at 10:00 Metformin HCl (Glucophage Xr) 500 mg BIDWMEALS PO ; Start 02/04/17 at 17:00; Stop 02/04/17 at 17:00; Status DC Sacubitril/ Valsartan (Entresto 24 Mg-26 Mg) 1 tab DAILY PO Last administered on 02/04/17 09:32; Start 02/02/17 at 10:00 Insulin Detemir (Levemir) 50 units QHS SQ Last administered on 02/04/17 20:40; Start 02/02/17 at 21:00 Iohexol (Omnipaque 300 Mg/ml) 75 ml 1X ONCE IV Last administered on 02/02/17 19:03; Start 02/02/17 at 14:30; Stop 02/02/17 at 14:31; Status DC Potassium Chloride (Klor-Con) 40 meq 1X ONCE PO Last administered on 02/03/17 10:20; Start 02/03/17 at 08:00; Stop 02/03/17 at 08:01; Status DC Potassium Chloride (Klor-Con) 40 meq 1X ONCE PO ; Start 02/03/17 at 12:00; Stop 02/03/17 at 12:01; Status DC Amiodarone HCl (Cordarone) 150 mg STK-MED ONCE .ROUTE ; Start 02/02/17 at 07:21; Stop 02/03/17 at 07:21; Status DC Iohexol (Omnipaque 300 Mg/ml) 100 ml STK-MED ONCE .ROUTE ; Start 02/03/17 at 10: 30; Stop 02/03/17 at 10:31; Status DC Lidocaine/Sodium Bicarbonate (Buffered Lidocaine 1%) 20 ml STK-MED ONCE IJ ; Start 02/03/17 at 10:31; Stop 02/03/17 at 10:32; Status DC Heparin Sodium/ Sodium Chloride 1,000 ml @ As Directed STK-MED ONCE .ROUTE ; Start 02/03/17 at 10:31; Stop 02/03/17 at 10:32; Status DC Heparin Sodium (Porcine) (Heparin Sodium) 10,000 unit STK-MED ONCE .ROUTE ; Start 02/03/17 at 14:16; Stop 02/03/17 at 14:18; Status DC Midazolam HCl (Versed) 5 mg STK-MED ONCE .ROUTE ; Start 02/03/17 at 14:16; Stop 02/03/17 at 14:18; Status DC Fentanyl Citrate (Fentanyl 5ml Vial) 250 mcg STK-MED ONCE .ROUTE ; Start at 14:17; Stop 02/03/17 at 14:18; Status DC Heparin Sodium/ Sodium Chloride 1,000 unit 1X ONCE IART Last administered on 16:06; Start 02/03/17 at 14:45; Stop 02/03/17 at 14:46; Status DC Lidocaine/Sodium Bicarbonate (Buffered Lidocaine 1%) 20 ml 1X ONCE IJ Last administered on 02/03/17 16:07; Start 02/03/17 at 14:45; Stop 02/03/17 at 14:46; Status DC Midazolam HCl (Versed) 5 mg 1X ONCE IV Last administered on 02/03/17 16:07; Start 02/03/17 at 14:45; Stop 02/03/17 at 14:46; Status DC Fentanyl Citrate (Fentanyl 5ml Vial) 250 mcg 1X ONCE IV Last administered on 16:07; Start 02/03/17 at 14:45; Stop 02/03/17 at 14:46; Status DC Iohexol (Omnipaque 300 Mg/ml) 100 ml 1X ONCE IART Last administered on 16:06; Start 02/03/17 at 14:45; Stop 02/03/17 at 14:46; Status DC Info (Do NOT chart on this entry -- for MONITORING) 1 each PRN DAILY PRN MC SEE COMMENTS; Start 02/03/17 at 15:00; Stop 02/05/17 at 14:59 Metformin HCl (Glucophage Xr) 500 mg BIDWMEALS PO ; Start 02/05/17 at 17:00 Alteplase, Recombinant 10 mg/ Sodium Chloride 100 ml @ 0 mls/hr 1X ONCE IV Last administered on 02/03/17 16:06; Start 02/03/17 at 15:00; Stop 02/03/17 at 15: 01; Status DC Sodium Chloride 1,000 ml @ 100 mls/hr Q10H IV Last administered on 02/05/17 08 :18; Start 02/03/17 at 15:30 Enoxaparin Sodium (Lovenox 120mg Syringe) 120 mg Q12H SQ ; Start 02/04/17 at 17: 00; Status UNV Heparin Sodium/ Dextrose 500 ml @ 0 mls/hr CONT PRN IV SEE I/O RECORD Last administered on 02/04/17 04:09; Start 02/03/17 at 17:00 Heparin Sodium (Porcine) (Heparin Sodium) 3,600 unit PRN Q6HRS PRN IV FOR UFH LEVEL LESS THAN 0.2; Start 02/03/17 at 17:00 Heparin Sodium (Porcine) (Heparin Sodium) 1,800 unit PRN Q6HRS PRN IV FOR UFH LEVEL 0.2 - 0.29; Start 02/03/17 at 17:00 Potassium Chloride (Klor-Con) 40 meq 1X ONCE PO Last administered on 02/03/17 20:42; Start 02/03/17 at 19:30; Stop 02/03/17 at 19:31; Status DC Warfarin Sodium (Coumadin Per Pharmacy) 1 each PRN DAILY PRN MC SEE COMMENTS Last administered on 02/04/17 09:32; Start 02/04/17 at 08:00 Warfarin Sodium (Coumadin) 7.5 mg 1X WARF ONCE PO Last administered on 17:02; Start 02/04/17 at 16:00; Stop 02/04/17 at 16:01; Status DC Potassium Chloride (Klor-Con) 40 meq 1X ONCE PO Last administered on 02/04/17 17:01; Start 02/04/17 at 14:00; Stop 02/04/17 at 14:01; Status DC Potassium Chloride (Klor-Con) 10 meq DAILYWBKFT PO Last administered on 09:53; Start 02/05/17 at 08:00 Multi-Ingredient Mouthwash/Gargle (Gi Cocktail Single Dose) 15 ml PRN 1X PRN SWSW CHEST PAIN; Start 02/04/17 at 15:45 Al Hydroxide/Mg Hydroxide (Mylanta Plus Xs) 30 ml BID PRN PO HEARTBURN / GAS; Start 02/04/17 at 15:45 Active Scripts Active Reported Lipitor (Atorvastatin Calcium) 20 Mg Tablet 20 Mg PO HS Coreg (Carvedilol) 6.25 Mg Tablet 1 Tab PO BID Lantus Solostar (Insulin Glargine,Hum.rec.anlog) 100 Unit/1 Ml Insuln.pen 50 Unit SQ QHS Entresto 24 mg-26 mg Tablet (Sacubitril/Valsartan) 1 Each Tablet 1 Each PO DAILY Metformin Hcl Er (Metformin Hcl) 500 Mg Tab.er.24h 500 Mg PO BIDWMEALS Vitals/I & O Vital Sign - Last 24 Hours 02/04/17 02/04/17 02/04/17 02/04/17 12:00 12:00 12:17 13:17 Pulse 92 Resp 10 16 16 B/P (MAP) 74/55 (61) Pulse Ox 95 95 97 O2 Delivery Room Air Room Air Room Air Room Air 02/04/17 02/04/17 02/04/17 02/04/17 14:00 14:35 15:00 16:00 Pulse 90 82 84 80 Resp 15 15 16 16 B/P (MAP) 72/48 (56) 92/52 (65) 107/65 (79) 102/61 (75) Pulse Ox 95 95 95 97 O2 Delivery Room Air Room Air Room Air Room Air 02/04/17 02/04/17 02/04/17 02/04/17 16:00 20:00 20:00 20:39 Temp 97.5 97.5 Pulse 96 Resp 16 18 B/P (MAP) 151/72 (98) Pulse Ox 97 98 O2 Delivery Room Air Room Air Room Air Room Air 02/04/17 02/05/17 02/05/17 02/05/17 20:39 00:00 00:01 01:00 Temp 100.1 100.1 Pulse 92 94 93 Resp 16 16 B/P (MAP) 126/74 111/76 (88) 93/55 (68) Pulse Ox 93 94 O2 Delivery Room Air Room Air Room Air 02/05/17 02/05/17 02/05/17 02/05/17 02:00 03:00 04:00 04:00 Temp 99.6 99.6 Pulse 90 96 84 Resp 16 16 16 B/P (MAP) 80/55 (63) 153/79 (103) 90/69 (76) Pulse Ox 92 97 94 O2 Delivery Room Air Room Air Room Air Room Air 02/05/17 02/05/17 02/05/17 02/05/17 05:00 06:00 08:00 09:00 Pulse 87 81 86 Resp 16 16 B/P (MAP) 91/60 (70) 113/68 (83) 95/70 Pulse Ox 94 92 O2 Delivery Room Air Room Air Room Air 02/05/17 02/05/17 09:00 09:53 Pulse 86 85 B/P (MAP) 95/70 105/73 PAKO SALAZAR MD Feb 05, 2017 11:11
[2017-02-05] MEDS: ANTI-COAG MONITOR BY PHARMACY. MC PRN (12:54)
[2017-02-05] MEDS ORDERED: WARFARIN 7.5 MG TABLET. PO ONE (16:00)
[2017-02-05] MEDS ORDERED: CARVEDILOL 3.125 MG TABLET. PO SCH (17:00)
[2017-02-05] MEDS: metFORMIN XR 500 MG TAB.ER.24H PO SCH (17:47)
[2017-02-05] MEDS: METOPROLOL TART IMMED RELEASE 25 MG TABLET. PO SCH (21:00)
[2017-02-05] MEDS: ATORVASTATIN CALCIUM 20 MG TABLET PO SCH (21:28)
[2017-02-05] MEDS: INSULIN DETEMIR 300 UNITS/3 ML INSULN.PEN. SQ SCH (21:30)
[2017-02-06] VITALS (7 sets, daily range): BP systolic 124–146; BP diastolic 67–87
[2017-02-06] MEDS: IV NORMAL SALINE 1000ML BAG 1,000 ML IV SCH (02:15)
[2017-02-06] MEDS: oxyCODONE/APAP 7.5/325 1 TAB TABLET PO PRN ×3 (04:07→20:52)
[2017-02-06] MEDS: INSULIN ASPART 300 UNITS/3 ML INSULN.PEN SQ SCH ×3 (08:00→17:43)
[2017-02-06] MEDS: POTASSIUM CHLORIDE 10 MEQ TABLET.ER. PO SCH (08:52)
[2017-02-06] MEDS: PANTOPRAZOLE 40 MG TABLET.DR. PO SCH (08:53)
[2017-02-06] MEDS: FUROSEMIDE 20 MG TABLET PO SCH (08:53)
[2017-02-06] MEDS: metFORMIN XR 500 MG TAB.ER.24H PO SCH ×2 (08:53→17:03)
[2017-02-06] MEDS: AMIODARONE HCL 200 MG TABLET. PO SCH (08:53)
[2017-02-06] MEDS: SACUBITRIL/VALSARTAN 24/26MG TABLET. PO SCH (08:55)
[2017-02-06] MEDS: METOPROLOL TART IMMED RELEASE 25 MG TABLET. PO SCH ×2 (09:00→20:51)
[2017-02-06 09:21] LABS: BASO % 0 % (0-3); EOS % 2 % (0-3); HEMATOCRIT 38.7 % (39.0-53.0); HEMOGLOBIN 12.9 g/dL (13.0-17.5); LYMPH # 3.9 x10^3/uL (1.0-4.8); LYMPH % 40 % (24-48); MEAN CORPUSCULAR HEMOGLOBIN 29 pg (25-35); MEAN CORPUSCULAR HGB CONC 33 g/dL (31-37); MEAN CORPUSCULAR VOLUME 85 fL (79-100); MONO % 16 % (0-9); NEUT % 41 % (31-73); PLATELET COUNT 223 x10^3/uL (140-400); RED BLOOD COUNT 4.54 x10^6/uL (4.30-5.70); RED CELL DISTRIBUTION WIDTH 13.9 % (11.5-14.5); WHITE BLOOD COUNT 9.7 x10^3/uL (4.0-11.0)
--- NOTE | 2017-02-06 09:30 | PDOC ---
PROGRESS NOTES Chief Complaint Chief Complaint CC: AICD firing, DKA, resolved New DVT, extensive, R arm, unprovoked s/p thrombolysis (02/03/17) Cardiomyopathy post AICD, LVEF: 20% DM HTN NOW HYPOTENSION PVD b/l fem-pop bypass History of Present Illness History of Present Illness s/p thrombolysis by IR 02/03 needs warf x 3-6 mos per vasc HYPOTENSION better INR 1.1 Heparin gtt not running RN will call his pharmacy and see how much co pay for lovenox shots 120 BID x 3 days approx Wants to go home PLAn: CHeck cost of lovenox shots Start lovenox 120 Sq BID until INR at goal Pt comfortable injecting self at home R arm looks significantly better Needs PCP to ff up INR - he knows Vitals Vitals Vital Signs Date Time Temp Pulse Resp B/P (MAP) Pulse Ox O2 Delivery O2 Flow Rate FiO2 02/06/17 08:55 86 152/80 02/06/17 05:07 95 Room Air 02/06/17 04:10 98.8 16 98.8 Physical Exam General: Alert, Cooperative, No acute distress, Other (fatigued) Heart: Normal S1, Normal S2, Other (heart rate slightly irregular) Lungs: Clear Abdomen: Soft, No tenderness Extremities: Other (edema and mild tenderness right upper extremity) Skin: No breakdown, No significant lesion Labs LABS Laboratory Tests Test 02/05/17 12:38 02/05/17 17:34 02/05/17 21:27 02/06/17 08:15 Glucose (Fingerstick) 172 mg/dL (70-99) 241 mg/dL (70-99) 174 mg/dL (70-99) 76 mg/dL (70-99) Test 02/06/17 08:20 White Blood Count 9.7 x10^3/uL (4.0-11.0) Red Blood Count 4.54 x10^6/uL (4.30-5.70) Hemoglobin 12.9 g/dL (13.0-17.5) Hematocrit 38.7 % (39.0-53.0) Mean Corpuscular Volume 85 fL (79-100) Mean Corpuscular Hemoglobin 29 pg (25-35) Mean Corpuscular Hemoglobin Concent 33 g/dL (31-37) Red Cell Distribution Width 13.9 % (11.5-14.5) Platelet Count 223 x10^3/uL (140-400) Neutrophils (%) (Auto) 41 % (31-73) Lymphocytes (%) (Auto) 40 % (24-48) Monocytes (%) (Auto) 16 % (0-9) Eosinophils (%) (Auto) 2 % (0-3) Basophils (%) (Auto) 0 % (0-3) Neutrophils # (Auto) 4.0 x10^3uL (1.8-7.7) Lymphocytes # (Auto) 3.9 x10^3/uL (1.0-4.8) Monocytes # (Auto) 1.6 x10^3/uL (0.0-1.1) Eosinophils # (Auto) 0.2 x10^3/uL (0.0-0.7) Basophils # (Auto) 0.0 x10^3/uL (0.0-0.2) Review of Systems Review of Systems denies 14 pt Assessment and Plan Assessmemt and Plan Problems Medical Problems: (1) DKA (diabetic ketoacidoses) Status: Acute Problems: Comment Review of Relevant I have reviewed the following items sebastian (where applicable) has been applied. Labs Laboratory Tests Test 02/04/17 12:18 02/04/17 17:03 02/04/17 20:37 02/05/17 04:40 Glucose (Fingerstick) 256 mg/dL (70-99) 122 mg/dL (70-99) 173 mg/dL (70-99) White Blood Count 6.8 x10^3/uL (4.0-11.0) Red Blood Count 4.63 x10^6/uL (4.30-5.70) Hemoglobin 13.1 g/dL (13.0-17.5) Hematocrit 39.3 % (39.0-53.0) Mean Corpuscular Volume 85 fL (79-100) Mean Corpuscular Hemoglobin 28 pg (25-35) Mean Corpuscular Hemoglobin Concent 33 g/dL (31-37) Red Cell Distribution Width 13.9 % (11.5-14.5) Platelet Count 192 x10^3/uL (140-400) Neutrophils (%) (Auto) 45 % (31-73) Lymphocytes (%) (Auto) 36 % (24-48) Monocytes (%) (Auto) 17 % (0-9) Eosinophils (%) (Auto) 2 % (0-3) Basophils (%) (Auto) 0 % (0-3) Neutrophils # (Auto) 3.0 x10^3uL (1.8-7.7) Lymphocytes # (Auto) 2.5 x10^3/uL (1.0-4.8) Monocytes # (Auto) 1.1 x10^3/uL (0.0-1.1) Eosinophils # (Auto) 0.1 x10^3/uL (0.0-0.7) Basophils # (Auto) 0.0 x10^3/uL (0.0-0.2) Prothrombin Time 13.2 SEC (11.7-14.0) Prothromb Time International Ratio 1.1 (0.8-1.1) Sodium Level 138 mmol/L (136-145) Potassium Level 3.7 mmol/L (3.5-5.1) Chloride Level 104 mmol/L (98-107) Carbon Dioxide Level 28 mmol/L (21-32) Anion Gap 6 (6-14) Blood Urea Nitrogen 9 mg/dL (8-26) Creatinine 0.8 mg/dL (0.7-1.3) Estimated GFR (Cockcroft-Gault) 101.9 Glucose Level 179 mg/dL (70-99) Calcium Level 8.3 mg/dL (8.5-10.1) Test 02/05/17 08:23 02/05/17 12:38 02/05/17 17:34 02/05/17 21:27 Glucose (Fingerstick) 155 mg/dL (70-99) 172 mg/dL (70-99) 241 mg/dL (70-99) 174 mg/dL (70-99) Test 02/06/17 08:15 02/06/17 08:20 Glucose (Fingerstick) 76 mg/dL (70-99) White Blood Count 9.7 x10^3/uL (4.0-11.0) Red Blood Count 4.54 x10^6/uL (4.30-5.70) Hemoglobin 12.9 g/dL (13.0-17.5) Hematocrit 38.7 % (39.0-53.0) Mean Corpuscular Volume 85 fL (79-100) Mean Corpuscular Hemoglobin 29 pg (25-35) Mean Corpuscular Hemoglobin Concent 33 g/dL (31-37) Red Cell Distribution Width 13.9 % (11.5-14.5) Platelet Count 223 x10^3/uL (140-400) Neutrophils (%) (Auto) 41 % (31-73) Lymphocytes (%) (Auto) 40 % (24-48) Monocytes (%) (Auto) 16 % (0-9) Eosinophils (%) (Auto) 2 % (0-3) Basophils (%) (Auto) 0 % (0-3) Neutrophils # (Auto) 4.0 x10^3uL (1.8-7.7) Lymphocytes # (Auto) 3.9 x10^3/uL (1.0-4.8) Monocytes # (Auto) 1.6 x10^3/uL (0.0-1.1) Eosinophils # (Auto) 0.2 x10^3/uL (0.0-0.7) Basophils # (Auto) 0.0 x10^3/uL (0.0-0.2) Laboratory Tests Test 02/05/17 12:38 02/05/17 17:34 02/05/17 21:27 02/06/17 08:15 Glucose (Fingerstick) 172 mg/dL (70-99) 241 mg/dL (70-99) 174 mg/dL (70-99) 76 mg/dL (70-99) Test 02/06/17 08:20 White Blood Count 9.7 x10^3/uL (4.0-11.0) Red Blood Count 4.54 x10^6/uL (4.30-5.70) Hemoglobin 12.9 g/dL (13.0-17.5) Hematocrit 38.7 % (39.0-53.0) Mean Corpuscular Volume 85 fL (79-100) Mean Corpuscular Hemoglobin 29 pg (25-35) Mean Corpuscular Hemoglobin Concent 33 g/dL (31-37) Red Cell Distribution Width 13.9 % (11.5-14.5) Platelet Count 223 x10^3/uL (140-400) Neutrophils (%) (Auto) 41 % (31-73) Lymphocytes (%) (Auto) 40 % (24-48) Monocytes (%) (Auto) 16 % (0-9) Eosinophils (%) (Auto) 2 % (0-3) Basophils (%) (Auto) 0 % (0-3) Neutrophils # (Auto) 4.0 x10^3uL (1.8-7.7) Lymphocytes # (Auto) 3.9 x10^3/uL (1.0-4.8) Monocytes # (Auto) 1.6 x10^3/uL (0.0-1.1) Eosinophils # (Auto) 0.2 x10^3/uL (0.0-0.7) Basophils # (Auto) 0.0 x10^3/uL (0.0-0.2) Microbiology 01/30/17 Blood Culture - Final, Complete NO GROWTH AFTER 5 DAYS Medications Current Medications Amiodarone HCl 150 mg/Dextrose 103 ml @ 400 mls/hr 1X ONCE IV Last administered on 01/30/17 00:27; Start 01/30/17 at 00:30; Stop 01/30/17 at 00:50; Status DC Sodium Chloride 1,000 ml @ 1,000 mls/hr 1X ONCE IV Last administered on 01:24; Start 01/30/17 at 01:30; Stop 01/30/17 at 02:29; Status DC Sodium Chloride 1,000 ml @ 1,000 mls/hr Q1H IV ; Start 01/30/17 at 01:38; Stop 01/30/17 at 02:37; Status DC Sodium Chloride 1,000 ml @ 500 mls/hr Q2H IV ; Start 01/30/17 at 01:39; Stop 01/30/17 at 03:38; Status DC Sodium Chloride 1,000 ml @ 250 mls/hr Q4H IV Last administered on 01/30/17 06: 25; Start 01/30/17 at 01:41; Stop 01/30/17 at 22:12; Status DC Sodium Chloride 1,000 ml @ 250 mls/hr Q4H IV ; Start 01/30/17 at 01:41; Stop 01/30/17 at 22:12; Status DC Dextrose/Sodium Chloride 1,000 ml @ 250 mls/hr Q4H IV ; Start 01/30/17 at 01:41 ; Stop 01/30/17 at 22:12; Status DC Insulin Human Regular 150 unit/ Sodium Chloride 151.5 ml @ 0 mls/hr CONT PRN PRN IV PER PROTOCOL Last administered on 01/30/17 02:08; Start 01/30/17 at 01:45 ; Stop 02/02/17 at 11:39; Status DC Potassium Chloride 100 ml @ 100 mls/hr PRN Q1HR PRN IV SEE COMMENTS Last administered on 01/30/17 10:48; Start 01/30/17 at 01:45; Stop 02/02/17 at 11:39; Status DC Potassium Chloride 100 ml @ 100 mls/hr PRN Q1HR PRN IV SEE COMMENTS; Start 01/30/17 at 01:45; Stop 02/02/17 at 11:39; Status DC Potassium Chloride 100 ml @ 100 mls/hr PRN Q1HR PRN IV SEE COMMENTS; Start 01/30/17 at 01:45; Stop 02/02/17 at 11:39; Status DC Insulin Human Regular 150 ml @ As Directed STK-MED ONCE IV ; Start 01/30/17 at 02:00; Stop 01/30/17 at 02:01; Status DC Amiodarone HCl 900 mg/Dextrose 518 ml @ 0 mls/hr CONT PRN IV SEE I/O RECORD Last administered on 01/30/17 02:24; Start 01/30/17 at 02:30; Stop 01/30/17 at 02: 30; Status DC Ondansetron HCl (Zofran) 4 mg PRN Q8HRS PRN IV NAUSEA/VOMITING Last administered on 01/30/17 20:58; Start 01/30/17 at 02:30; Stop 01/31/17 at 02:29; Status DC Metoprolol Tartrate (Lopressor) 5 mg STK-MED ONCE .ROUTE ; Start 01/30/17 at 03: 23; Stop 01/30/17 at 03:24; Status DC Metoprolol Tartrate (Lopressor) 5 mg 1X ONCE IVP Last administered on 03:25; Start 01/30/17 at 04:00; Stop 01/30/17 at 04:01; Status DC Sodium Chloride 1,000 ml @ 1,000 mls/hr 1X ONCE IV Last administered on 03:35; Start 01/30/17 at 04:30; Stop 01/30/17 at 05:29; Status DC Sodium Chloride 1,000 ml @ 1,000 mls/hr 1X ONCE IV Last administered on 03:40; Start 01/30/17 at 04:30; Stop 01/30/17 at 05:29; Status DC Sodium Chloride 400 ml @ 400 mls/hr 1X ONCE IV Last administered on 01/30/17 05:45; Start 01/30/17 at 05:30; Stop 01/30/17 at 06:29; Status DC Dextrose/Sodium Chloride 1,000 ml @ 250 mls/hr Q4H IV Last administered on 01/30 13:15; Start 01/30/17 at 09:15; Stop 01/30/17 at 22:12; Status DC Pantoprazole Sodium (Protonix) 40 mg DAILYAC PO Last administered on 02/06/17 08:53; Start 01/30/17 at 13:30 Calcium Carbonate/ Glycine (Tums) 500 mg PRN Q3HRS PRN PO INDIGESTION Last administered on 01/31/17 00:19; Start 01/30/17 at 13:00 Insulin Detemir (Levemir) 40 units 1X ONCE SQ Last administered on 01/30/17 16 :46; Start 01/30/17 at 14:00; Stop 01/30/17 at 15:43; Status DC Lidocaine HCl (Lidocaine HCl 2% Abboject) 100 mg STK-MED ONCE .ROUTE ; Start 01/30/17 at 16:41; Stop 01/30/17 at 16:42; Status DC Adenosine (Adenocard) 6 mg STK-MED ONCE IV ; Start 01/30/17 at 16:46; Stop at 16:47; Status DC Digoxin (Lanoxin) 500 mcg 1X ONCE IV Last administered on 01/30/17 16:54; Start 01/30/17 at 17:00; Stop 01/30/17 at 17:01; Status DC Heparin Sodium/ Dextrose 500 ml @ 0 mls/hr CONT PRN IV SEE I/O RECORD; Start at 17:00; Status Cancel Heparin Sodium (Porcine) (Heparin Sodium) 3,000 unit PRN Q6HRS PRN IV FOR UFH LEVEL LESS THAN 0.2; Start 01/30/17 at 17:00; Stop 02/01/17 at 16:44; Status DC Info (Anti-Coagulation Monitoring By Pharmacy) 1 each PRN DAILY PRN MC SEE COMMENTS Last administered on 02/05/17 12:54; Start 01/30/17 at 17:00 Metoprolol Tartrate (Lopressor) 50 mg BID PO ; Start 01/30/17 at 18:00; Stop 01/30 at 18:00; Status DC Insulin Aspart (NovoLOG) 0-9 UNITS TIDWMEALS SQ Last administered on 02/05/17 17:48; Start 01/30/17 at 17:41 Dextrose (Dextrose 50%-Water Syringe) 12.5 gm PRN Q15MIN PRN IV SEE COMMENTS; Start 01/30/17 at 17:45 Metoprolol Tartrate (Lopressor) 2.5 mg 1X ONCE IVP Last administered on 17:44; Start 01/30/17 at 17:45; Stop 01/30/17 at 17:46; Status DC Morphine Sulfate 2 mg PRN Q2HR PRN IV PAIN Last administered on 01/31/17 08:48 ; Start 01/30/17 at 18:00; Stop 01/31/17 at 12:51; Status DC Amiodarone HCl 450 mg/Dextrose 259 ml @ 17.26 mls/ hr CONT PRN IV SEE I/O RECORD Last administered on 01/31/17 03:41; Start 01/30/17 at 22:15; Stop at 10:11; Status DC Amiodarone HCl (Cordarone) 200 mg DAILY PO Last administered on 02/06/17 08:53 ; Start 01/31/17 at 10:30 Carvedilol (Coreg) 12.5 mg BIDWMEALS PO Last administered on 02/02/17 09:10; Start 01/31/17 at 11:30; Stop 02/02/17 at 09:40; Status DC Tramadol HCl (Ultram) 50 mg PRN Q6HRS PRN PO PAIN Last administered on 23:14; Start 01/31/17 at 13:00 Sacubitril/ Valsartan (Entresto 24 Mg-26 Mg) 1 tab BID PO Last administered on 02/02/17 09:09; Start 01/31/17 at 13:30; Stop 02/02/17 at 09:39; Status DC Oxycodone/ Acetaminophen (Percocet 7.5/ 325) 1 tab PRN Q6HRS PRN PO PAIN Last administered on 02/06/17 04:07; Start 01/31/17 at 13:15 Furosemide (Lasix) 40 mg DAILY PO Last administered on 02/04/17 09:30; Start at 14:00; Stop 02/05/17 at 11:08; Status DC Throat Lozenges (Chloraseptic) 1 spray PRN Q2HR PRN PO SORE THROAT Last administered on 02/05/17 00:19; Start 01/31/17 at 23:15 Enoxaparin Sodium (Lovenox Per Pharmacy Treatment Dosing) 1 each PRN DAILY PRN MC SEE COMMENTS; Start 02/01/17 at 16:30; Status Cancel Warfarin Sodium (Coumadin Per Pharmacy) 1 each PRN DAILY PRN MC SEE COMMENTS; Start 02/02/17 at 16:00; Stop 02/02/17 at 16:00; Status DC Enoxaparin Sodium (Lovenox 120mg Syringe) 120 mg Q12H SQ Last administered on 04:27; Start 02/01/17 at 17:00; Stop 02/03/17 at 16:59; Status DC Iohexol (Omnipaque 300 Mg/ml) 75 ml 1X ONCE IV ; Start 02/02/17 at 05:30; Stop 02/02/17 at 05:31; Status DC Info (Do NOT chart on this entry -- for MONITORING) 1 each PRN DAILY PRN MC SEE COMMENTS; Start 02/02/17 at 05:15; Stop 02/04/17 at 05:15; Status DC Atorvastatin Calcium (Lipitor) 20 mg HS PO Last administered on 02/05/17 21:28 ; Start 02/02/17 at 21:00 Carvedilol (Coreg) 6.25 mg BID PO Last administered on 02/04/17 20:39; Start at 10:00; Stop 02/05/17 at 11:08; Status DC Metformin HCl (Glucophage Xr) 500 mg BIDWMEALS PO ; Start 02/04/17 at 17:00; Stop 02/04/17 at 17:00; Status DC Sacubitril/ Valsartan (Entresto 24 Mg-26 Mg) 1 tab DAILY PO Last administered on 02/06/17 08:55; Start 02/02/17 at 10:00 Insulin Detemir (Levemir) 50 units QHS SQ Last administered on 02/05/17 21:30; Start 02/02/17 at 21:00 Iohexol (Omnipaque 300 Mg/ml) 75 ml 1X ONCE IV Last administered on 02/02/17 19:03; Start 02/02/17 at 14:30; Stop 02/02/17 at 14:31; Status DC Potassium Chloride (Klor-Con) 40 meq 1X ONCE PO Last administered on 02/03/17 10:20; Start 02/03/17 at 08:00; Stop 02/03/17 at 08:01; Status DC Potassium Chloride (Klor-Con) 40 meq 1X ONCE PO ; Start 02/03/17 at 12:00; Stop 02/03/17 at 12:01; Status DC Amiodarone HCl (Cordarone) 150 mg STK-MED ONCE .ROUTE ; Start 02/02/17 at 07:21; Stop 02/03/17 at 07:21; Status DC Iohexol (Omnipaque 300 Mg/ml) 100 ml STK-MED ONCE .ROUTE ; Start 02/03/17 at 10: 30; Stop 02/03/17 at 10:31; Status DC Lidocaine/Sodium Bicarbonate (Buffered Lidocaine 1%) 20 ml STK-MED ONCE IJ ; Start 02/03/17 at 10:31; Stop 02/03/17 at 10:32; Status DC Heparin Sodium/ Sodium Chloride 1,000 ml @ As Directed STK-MED ONCE .ROUTE ; Start 02/03/17 at 10:31; Stop 02/03/17 at 10:32; Status DC Heparin Sodium (Porcine) (Heparin Sodium) 10,000 unit STK-MED ONCE .ROUTE ; Start 02/03/17 at 14:16; Stop 02/03/17 at 14:18; Status DC Midazolam HCl (Versed) 5 mg STK-MED ONCE .ROUTE ; Start 02/03/17 at 14:16; Stop 02/03/17 at 14:18; Status DC Fentanyl Citrate (Fentanyl 5ml Vial) 250 mcg STK-MED ONCE .ROUTE ; Start at 14:17; Stop 02/03/17 at 14:18; Status DC Heparin Sodium/ Sodium Chloride 1,000 unit 1X ONCE IART Last administered on 16:06; Start 02/03/17 at 14:45; Stop 02/03/17 at 14:46; Status DC Lidocaine/Sodium Bicarbonate (Buffered Lidocaine 1%) 20 ml 1X ONCE IJ Last administered on 02/03/17 16:07; Start 02/03/17 at 14:45; Stop 02/03/17 at 14:46; Status DC Midazolam HCl (Versed) 5 mg 1X ONCE IV Last administered on 02/03/17 16:07; Start 02/03/17 at 14:45; Stop 02/03/17 at 14:46; Status DC Fentanyl Citrate (Fentanyl 5ml Vial) 250 mcg 1X ONCE IV Last administered on 16:07; Start 02/03/17 at 14:45; Stop 02/03/17 at 14:46; Status DC Iohexol (Omnipaque 300 Mg/ml) 100 ml 1X ONCE IART Last administered on 16:06; Start 02/03/17 at 14:45; Stop 02/03/17 at 14:46; Status DC Info (Do NOT chart on this entry -- for MONITORING) 1 each PRN DAILY PRN MC SEE COMMENTS; Start 02/03/17 at 15:00; Stop 02/05/17 at 14:59; Status DC Metformin HCl (Glucophage Xr) 500 mg BIDWMEALS PO Last administered on 08:53; Start 02/05/17 at 17:00 Alteplase, Recombinant 10 mg/ Sodium Chloride 100 ml @ 0 mls/hr 1X ONCE IV Last administered on 02/03/17 16:06; Start 02/03/17 at 15:00; Stop 02/03/17 at 15: 01; Status DC Sodium Chloride 1,000 ml @ 100 mls/hr Q10H IV Last administered on 02/05/17 08 :18; Start 02/03/17 at 15:30; Stop 02/06/17 at 08:53; Status DC Enoxaparin Sodium (Lovenox 120mg Syringe) 120 mg Q12H SQ ; Start 02/04/17 at 17: 00; Status UNV Heparin Sodium/ Dextrose 500 ml @ 0 mls/hr CONT PRN IV SEE I/O RECORD Last administered on 02/04/17 04:09; Start 02/03/17 at 17:00; Stop 02/06/17 at 09:20; Status DC Heparin Sodium (Porcine) (Heparin Sodium) 3,600 unit PRN Q6HRS PRN IV FOR UFH LEVEL LESS THAN 0.2; Start 02/03/17 at 17:00; Stop 02/06/17 at 09:20; Status DC Heparin Sodium (Porcine) (Heparin Sodium) 1,800 unit PRN Q6HRS PRN IV FOR UFH LEVEL 0.2 - 0.29; Start 02/03/17 at 17:00; Stop 02/06/17 at 09:20; Status DC Potassium Chloride (Klor-Con) 40 meq 1X ONCE PO Last administered on 02/03/17 20:42; Start 02/03/17 at 19:30; Stop 02/03/17 at 19:31; Status DC Warfarin Sodium (Coumadin Per Pharmacy) 1 each PRN DAILY PRN MC SEE COMMENTS Last administered on 02/06/17 09:26; Start 02/04/17 at 08:00 Warfarin Sodium (Coumadin) 7.5 mg 1X WARF ONCE PO Last administered on 17:02; Start 02/04/17 at 16:00; Stop 02/04/17 at 16:01; Status DC Potassium Chloride (Klor-Con) 40 meq 1X ONCE PO Last administered on 02/04/17 17:01; Start 02/04/17 at 14:00; Stop 02/04/17 at 14:01; Status DC Potassium Chloride (Klor-Con) 10 meq DAILYWBKFT PO Last administered on 08:52; Start 02/05/17 at 08:00 Multi-Ingredient Mouthwash/Gargle (Gi Cocktail Single Dose) 15 ml PRN 1X PRN SWSW CHEST PAIN; Start 02/04/17 at 15:45 Al Hydroxide/Mg Hydroxide (Mylanta Plus Xs) 30 ml BID PRN PO HEARTBURN / GAS; Start 02/04/17 at 15:45 Carvedilol (Coreg) 3.125 mg BIDWMEALS PO ; Start 02/05/17 at 17:00; Stop 02/05/17 at 17:00; Status DC Furosemide (Lasix) 20 mg DAILY PO Last administered on 02/06/17 08:53; Start at 09:00 Metoprolol Tartrate (Lopressor) 12.5 mg BID PO ; Start 02/05/17 at 21:00 Warfarin Sodium (Coumadin) 7.5 mg 1X WARF ONCE PO Last administered on 17:47; Start 02/05/17 at 16:00; Stop 02/05/17 at 16:01; Status DC Enoxaparin Sodium (Lovenox 120mg Syringe) 120 mg Q12HR SQ ; Start 02/06/17 at 09: 30 Warfarin Sodium (Coumadin) 9 mg 1X WARF ONCE PO ; Start 02/06/17 at 16:00; Stop 02/06/17 at 16:01; Status Cancel Active Scripts Active Reported Lipitor (Atorvastatin Calcium) 20 Mg Tablet 20 Mg PO HS Coreg (Carvedilol) 6.25 Mg Tablet 1 Tab PO BID Lantus Solostar (Insulin Glargine,Hum.rec.anlog) 100 Unit/1 Ml Insuln.pen 50 Unit SQ QHS Entresto 24 mg-26 mg Tablet (Sacubitril/Valsartan) 1 Each Tablet 1 Each PO DAILY Metformin Hcl Er (Metformin Hcl) 500 Mg Tab.er.24h 500 Mg PO BIDWMEALS Vitals/I & O Vital Sign - Last 24 Hours 02/05/17 02/05/17 02/05/17 02/05/17 09:53 10:00 12:00 12:06 Temp 98.8 98.8 Pulse 85 86 86 Resp 18 15 18 B/P (MAP) 105/73 95/70 (78) 111/68 (82) Pulse Ox 93 93 93 O2 Delivery Room Air Room Air Room Air 02/05/17 02/05/17 02/05/17 02/05/17 13:10 16:00 20:00 20:00 Temp 98.5 98.5 Pulse 86 80 Resp 18 18 20 B/P (MAP) 100/68 (79) 101/62 (75) Pulse Ox 94 O2 Delivery Room Air Room Air Room Air 02/05/17 02/05/17 02/06/17 02/06/17 20:24 21:00 00:15 04:07 Temp 99.0 99.0 Pulse 86 82 Resp 12 17 B/P (MAP) 101/62 124/74 (91) Pulse Ox 97 96 94 O2 Delivery Room Air Room Air Room Air 02/06/17 02/06/17 02/06/17 02/06/17 04:10 05:07 08:53 08:55 Temp 98.8 98.8 Pulse 85 87 86 Resp 16 B/P (MAP) 146/74 (98) 152/80 152/80 Pulse Ox 94 95 O2 Delivery Room Air Room Air PAKO SALAZAR MD Feb 06, 2017 09:30
[2017-02-06 09:31] LABS: INR 1.2 (0.8-1.1); PROTHROMBIN TIME PATIENT 14.7 SEC (11.7-14.0)
[2017-02-06 10:24] LABS: CALCIUM 8.4 mg/dL (8.5-10.1); CREATININE 0.8 mg/dL (0.7-1.3); GFR 101.9; POTASSIUM 3.5 mmol/L (3.5-5.1)
[2017-02-06] MEDS ORDERED: WARFARIN 7.5 MG TABLET. PO ONE (16:00)
[2017-02-06] MEDS ORDERED: WARFARIN 3 MG TABLET. PO ONE (16:00)
[2017-02-06] MEDS: ATORVASTATIN CALCIUM 20 MG TABLET PO SCH (20:52)
[2017-02-06] MEDS: INSULIN DETEMIR 300 UNITS/3 ML INSULN.PEN. SQ SCH (20:58)
[2017-02-07 03:55] VITALS: BP 109/63
[2017-02-07 05:07] LABS: HEMOGLOBIN 12.3 g/dL (13.0-17.5); RED BLOOD COUNT 4.38 x10^6/uL (4.30-5.70); RED CELL DISTRIBUTION WIDTH 13.9 % (11.5-14.5); WHITE BLOOD COUNT 8.9 x10^3/uL (4.0-11.0)
[2017-02-07 07:00] VITALS: BP 150/73
[2017-02-07] MEDS: INSULIN ASPART 300 UNITS/3 ML INSULN.PEN SQ SCH ×2 (08:00→12:00)
[2017-02-07 08:01] LABS: INR 1.5 (0.8-1.1); PROTHROMBIN TIME PATIENT 16.9 SEC (11.7-14.0)
[2017-02-07] MEDS: ANTI-COAG MONITOR BY PHARMACY. MC PRN (08:23)
[2017-02-07] MEDS: POTASSIUM CHLORIDE 10 MEQ TABLET.ER. PO SCH (08:56)
[2017-02-07] MEDS: FUROSEMIDE 20 MG TABLET PO SCH (08:56)
[2017-02-07] MEDS: PANTOPRAZOLE 40 MG TABLET.DR. PO SCH (08:56)
[2017-02-07] MEDS: SACUBITRIL/VALSARTAN 24/26MG TABLET. PO SCH (08:57)
[2017-02-07] MEDS: AMIODARONE HCL 200 MG TABLET. PO SCH (08:57)
[2017-02-07] MEDS: metFORMIN XR 500 MG TAB.ER.24H PO SCH (08:57)
[2017-02-07] MEDS: oxyCODONE/APAP 7.5/325 1 TAB TABLET PO PRN (08:57)
[2017-02-07] MEDS: METOPROLOL TART IMMED RELEASE 25 MG TABLET. PO SCH (09:01)
[2017-02-07] MEDS: PHENOL ORAL SPRAY 177ML BOTTLE. PO PRN (09:02)
[2017-02-07 11:00] VITALS: BP 134/76
[2017-02-07] MEDS ORDERED: AMIO200T2 PO (11:38)
[2017-02-07] MEDS ORDERED: METO25TA4 PO (11:38)
[2017-02-07] MEDS ORDERED: WARF5TAB7 PO (11:38)
[2017-02-07] MEDS ORDERED: POTA10TA12 PO (11:38)
[2017-02-07] MEDS ORDERED: FURO-69 PO (11:38)
[2017-02-07] MEDS ORDERED: TRAM50TA PO (11:38)
--- NOTE | 2017-02-07 11:43 | PDOC3 ---
Discharge Summary Visit Information Date of Admission: Jan 30, 2017 Date of Discharge: Feb 07, 2017 Admitting Diagnosis Comment: CC: AICD firing, DKA, resolved New DVT, extensive, R arm, unprovoked s/p thrombolysis (02/03/17) Cardiomyopathy post AICD, LVEF: 20% DM HTN NOW HYPOTENSION PVD b/l fem-pop bypass Final Diagnosis Problems Medical Problems: (1) DKA (diabetic ketoacidoses) Status: Acute Brief Hospital Course Allergies Allergies Coded Allergies Type Severity Reaction Last Updated Verified No Known Drug Allergies 01/30/17 No Vital Signs Vital Signs Date Time Temp Pulse Resp B/P (MAP) Pulse Ox O2 Delivery O2 Flow Rate FiO2 02/07/17 10:00 Room Air 02/07/17 09:01 75 150/73 02/07/17 07:00 97.9 18 96 97.9 02/06/17 21:52 2.0 Lab Results Laboratory Tests Test 02/05/17 12:38 02/05/17 17:34 02/05/17 21:27 02/06/17 08:15 Glucose (Fingerstick) 172 mg/dL (70-99) 241 mg/dL (70-99) 174 mg/dL (70-99) 76 mg/dL (70-99) Test 02/06/17 08:20 02/06/17 12:33 02/06/17 17:34 02/07/17 04:00 White Blood Count 9.7 x10^3/uL (4.0-11.0) 8.9 x10^3/uL (4.0-11.0) Red Blood Count 4.54 x10^6/uL (4.30-5.70) 4.38 x10^6/uL (4.30-5.70) Hemoglobin 12.9 g/dL (13.0-17.5) 12.3 g/dL (13.0-17.5) Hematocrit 38.7 % (39.0-53.0) 38.0 % (39.0-53.0) Mean Corpuscular Volume 85 fL (79-100) 87 fL (79-100) Mean Corpuscular Hemoglobin 29 pg (25-35) 28 pg (25-35) Mean Corpuscular Hemoglobin Concent 33 g/dL (31-37) 32 g/dL (31-37) Red Cell Distribution Width 13.9 % (11.5-14.5) 13.9 % (11.5-14.5) Platelet Count 223 x10^3/uL (140-400) 232 x10^3/uL (140-400) Neutrophils (%) (Auto) 41 % (31-73) Lymphocytes (%) (Auto) 40 % (24-48) Monocytes (%) (Auto) 16 % (0-9) Eosinophils (%) (Auto) 2 % (0-3) Basophils (%) (Auto) 0 % (0-3) Neutrophils # (Auto) 4.0 x10^3uL (1.8-7.7) Lymphocytes # (Auto) 3.9 x10^3/uL (1.0-4.8) Monocytes # (Auto) 1.6 x10^3/uL (0.0-1.1) Eosinophils # (Auto) 0.2 x10^3/uL (0.0-0.7) Basophils # (Auto) 0.0 x10^3/uL (0.0-0.2) Prothrombin Time 14.7 SEC (11.7-14.0) Prothromb Time International Ratio 1.2 (0.8-1.1) Sodium Level 139 mmol/L (136-145) Potassium Level 3.5 mmol/L (3.5-5.1) Chloride Level 104 mmol/L (98-107) Carbon Dioxide Level 28 mmol/L (21-32) Anion Gap 7 (6-14) Blood Urea Nitrogen 7 mg/dL (8-26) Creatinine 0.8 mg/dL (0.7-1.3) Estimated GFR (Cockcroft-Gault) 101.9 Glucose Level 81 mg/dL (70-99) Calcium Level 8.4 mg/dL (8.5-10.1) Glucose (Fingerstick) 138 mg/dL (70-99) 209 mg/dL (70-99) Test 02/07/17 07:15 02/07/17 07:28 Prothrombin Time 16.9 SEC (11.7-14.0) Prothromb Time International Ratio 1.5 (0.8-1.1) Glucose (Fingerstick) 71 mg/dL (70-99) Laboratory Tests Test 02/06/17 12:33 02/06/17 17:34 02/07/17 04:00 02/07/17 07:15 Glucose (Fingerstick) 138 mg/dL (70-99) 209 mg/dL (70-99) White Blood Count 8.9 x10^3/uL (4.0-11.0) Red Blood Count 4.38 x10^6/uL (4.30-5.70) Hemoglobin 12.3 g/dL (13.0-17.5) Hematocrit 38.0 % (39.0-53.0) Mean Corpuscular Volume 87 fL (79-100) Mean Corpuscular Hemoglobin 28 pg (25-35) Mean Corpuscular Hemoglobin Concent 32 g/dL (31-37) Red Cell Distribution Width 13.9 % (11.5-14.5) Platelet Count 232 x10^3/uL (140-400) Prothrombin Time 16.9 SEC (11.7-14.0) Prothromb Time International Ratio 1.5 (0.8-1.1) Test 02/07/17 07:28 Glucose (Fingerstick) 71 mg/dL (70-99) Brief Hospital Course Mr. Rodriguez is a 51 old [sex] who presented with initially firing if his AICD. That got resolved, new rate controlling agents started by cards, BUt course remarkable for Developing extensive DVT RT arm, needed thrombolysis by IR then ICU stay on heparin gtt x 24 hrs, NO devt of pE. Started on warf, cant afford novel OAC, BEing bridged with lovenox, Co pay only $5. GIven rx for lovenox and warf. Sister is RN comfortable injecting BID, ALso new RX from [facility], amio 200PO qD, lasix 40 with kcl PO, metoprolol 12,5 BID , stop coreg for better rate control Rx provided, heavy dc education time 40 mins Discharge Information Condition at Discharge: Improved, Stable Disposition/Orders: D/C to Home Scheduled Atorvastatin Calcium (Lipitor), 20 MG PO HS, (Reported) Carvedilol (Coreg), 1 TAB PO BID, (Reported) Insulin Glargine,Hum.rec.anlog (Lantus Solostar), 50 UNIT SQ QHS, (Reported) Metformin Hcl (Metformin Hcl Er), 500 MG PO BIDWMEALS, (Reported) Sacubitril/Valsartan (Entresto 24 mg-26 mg Tablet), 1 EACH PO DAILY, (Reported) PAKO SALAZAR MD Feb 07, 2017 11:43
[2017-02-07] MEDS ORDERED: WARFARIN 10 MG TABLET. PO ONE (16:00)
== END 2017-02-07 14:37 | disposition home or self-care (01) | DRG 270 ==
LOC: ER 00:20 → 1 WEST ICU 01:30 → 2 NORTH 01-31 20:53 → 1 WEST ICU 02-03 10:23 → 2 SOUTH 02-06 18:03
PROVIDERS: ADMIT Internal Medicine Hematology & Oncology; ATTEND Internal Medicine Hematology & Oncology
PROC: 05C73ZZ Extirpation of Matter from Right Axillary Vein, Percutaneous Approach (ICD-10-PCS; principal; 2017-02-03)
PROC: 05C53ZZ Extirpation of Matter from Right Subclavian Vein, Percutaneous Approach (ICD-10-PCS; 2017-02-03)
PROC: 3E03317 Introduction of Other Thrombolytic into Peripheral Vein, Percutaneous Approach (ICD-10-PCS; 2017-02-03)
PROC: 05C93ZZ Extirpation of Matter from Right Brachial Vein, Percutaneous Approach (ICD-10-PCS; 2017-02-03)
PROC: 05753ZZ Dilation of Right Subclavian Vein, Percutaneous Approach (ICD-10-PCS; 2017-02-03)
DX: I21.4 Non-ST elevation (NSTEMI) myocardial infarction (principal); E13.10 Other specified diabetes mellitus with ketoacidosis without coma; G93.41 Metabolic encephalopathy; N17.9 Acute kidney failure, unspecified; I82.621 Acute embolism and thrombosis of deep veins of right upper extremity; I50.22 Chronic systolic (congestive) heart failure; I82.A11 Acute embolism and thrombosis of right axillary vein; I82.B11 Acute embolism and thrombosis of right subclavian vein; F32.9 Major depressive disorder, single episode, unspecified; F41.9 Anxiety disorder, unspecified; D72.829 Elevated white blood cell count, unspecified; I11.0 Hypertensive heart disease with heart failure; E66.9 Obesity, unspecified; I25.10 Atherosclerotic heart disease of native coronary artery without angina pectoris; I25.5 Ischemic cardiomyopathy; I48.91 Unspecified atrial fibrillation; I73.9 Peripheral vascular disease, unspecified; Z95.810 Presence of automatic (implantable) cardiac defibrillator; Z98.61 Coronary angioplasty status; Z91.14 Patient's other noncompliance with medication regimen; Z83.3 Family history of diabetes mellitus; Z79.4 Long term (current) use of insulin; Z68.35 Body mass index [BMI] 35.0-35.9, adult; Z86.718 Personal history of other venous thrombosis and embolism
CPT/HCPCS: 36005; 36415; 36600; 70330; 70450; 71010; 71275; 75820; 76937; 80048; 80076; 80307; 81001; 82553; 82805; 82947; 82962; 83605; 83690; 83735; 83880; 84100; 84132; 84443; 84484; 85007; 85025; 85027; 85520; 85610; 87040; 87641; 93005; 93971; 96361; 96365; 96366; 96368; 96375; 96376; 99152; 99153; A4215; C1757; C1758; C1769; C1892; C1894; G0480; J0282; J1160; J1644; J1650; J1815; J2250; J2270; J2405; J2997; J3010; J3480; J3490; J7030; J7040; J7042; Q9967; 99291-25; G0479